=== PATIENT | female | born 1960 | race Caucasian/White ===

== ENCOUNTER 2016-04-30 08:00 | Outpatient (CLI) | payer OTHER, MEDICARE | END 2016-04-30 08:01 | disposition home or self-care (01) | DX: Z00.00 Encounter for general adult medical examination without abnormal findings (principal); E11.9 Type 2 diabetes mellitus without complications; G89.29 Other chronic pain; E55.9 Vitamin D deficiency, unspecified; Z79.899 Other long term (current) drug therapy ==

== ENCOUNTER 2016-09-03 09:43 | Outpatient (CLI) | payer OTHER, MEDICARE ==
[2016-09-03 13:54] LABS: HEMOGLOBIN A1C 0.77 g/dL
== END 2016-09-03 09:44 | disposition home or self-care (01) ==
LOC: LAB.N 09:43
PROVIDERS: ATTEND Physician Assistant Medical
DX: E11.9 Type 2 diabetes mellitus without complications (principal)
CPT/HCPCS: 36415; 82947; 83036

== ENCOUNTER 2018-06-30 12:01 | Inpatient (IN) | payer OTHER, MEDICARE ==
[2018-06-30] MEDS ORDERED: TETANUS/DIPHTHERIA/PERTUSSIS 0.5 ML SYRINGE IM ONE (12:53)
[2018-06-30 13:20] LABS: BASOPHILS # (AUTO) 0.1 10^3/uL (0.0-0.1); BASOPHILS % (AUTO) 0.4 %; EOSINOPHILS # (AUTO) 0.1 10^3/uL (0.0-0.7); EOSINOPHILS % (AUTO) 0.8 %; HGB - HEMOGLOBIN 13.1 g/dL (12.0-16.0); LYMPHOCYTES # (AUTO) 2.8 10^3/uL (1.5-3.5); LYMPHOCYTES % (AUTO) 23.4 %; MEAN CORPUSCULAR HEMOGLOBIN 28.1 pg (27.0-31.0); MEAN CORPUSCULAR HGB CONC 33.5 g/dL (32.0-36.0); MEAN CORPUSCULAR VOLUME 83.9 fL (81.0-99.0); MEAN PLATELET VOLUME 7.4 fL (7.9-10.8); MONOCYTES # (AUTO) 0.6 10^3/uL (0.0-1.0); MONOCYTES % (AUTO) 5.4 %; NEUTROPHILS # (AUTO) 8.4 10^3/uL (1.5-6.6); PLT - PLATELET COUNT 374 10^3/uL (130-450); RED BLOOD COUNT 4.67 10^6/uL (4.20-5.40); RED CELL DISTRIBUTION WIDTH 13.2 % (12.0-15.0)
[2018-06-30 13:32] LABS: ALBUMIN 4.1 g/dL (3.2-5.5); ALBUMIN/GLOBULIN RATIO 1.3 (1.0-2.2); BILIRUBIN,TOTAL 0.6 mg/dL (0.2-1.0); CALCIUM 9.6 mg/dL (8.5-10.3); CREATININE 0.6 mg/dL (0.4-1.0); TOTAL PROTEIN 7.2 g/dL (6.7-8.2)
[2018-06-30] MEDS ORDERED: SODIUM CHLORIDE 0.9% 1,000 ML IV ONE ×2 (13:37→14:15)
[2018-06-30] MEDS ORDERED: AMPICILLIN/SULBACTAM 3 GM in SODIUM CHLORIDE 0.9% MINIBAG 100 ML IV STA (13:41)
[2018-06-30] MEDS ORDERED: CLINDAMYCIN 600 MG/50 ML 50 ML IV ONE (13:42)
[2018-06-30] MEDS ORDERED: IOPAMIDOL-300 100 ML VIAL ONE (13:54)
--- NOTE | 2018-06-30 14:36 | CT Report ---
Reason: foot swelling, pain, blister, elevated Lactate Procedure Date: 06/30/2018 Accession Number: [id number] / [id number] Procedure: CT - LOWER EXTREMITY W - RT CPT Code: FULL RESULT: EXAM: RIGHT FOOT CT WITH CONTRAST EXAM DATE: 06/30/2018 02:21 PM. CLINICAL HISTORY: Foot swelling, pain, blister, elevated lactate. COMPARISON: None. TECHNIQUE: Thin-section axial images were acquired of the foot after administration of intravenous contrast. IV contrast: 100 mL Isovue-300. Post-processing: Coronal and sagittal reformats. Other: None. In accordance with CT protocol optimization, one or more of the following dose reduction techniques were utilized for this exam: automated exposure control, adjustment of mA and/or KV based on patient size, or use of iterative reconstructive technique. FINDINGS: Bones: A small plantar calcaneal spur is present. Joints: The joint spaces are preserved. No calcified loose bodies. No large effusion. No synovitis. Musculature: The patient has moderate fatty atrophy of the intrinsic musculature of the foot. Other: There is calcific enthesopathy at the Achilles insertion. Dorsal subcutaneous edema is in the midfoot. No rim-enhancing drainable fluid collections. No emphysema. IMPRESSION: Mild cellulitis without abscess. RADIA
[2018-06-30 14:38] LABS: VBG PCO2 39.5 mmHg (41-51); VBG PH 7.367 (7.31-7.41); VBG PO2 38.6 mmHg (25-47)
[2018-06-30 14:39] LABS: VBG BASE EXCESS -2.9 mmol/L (-2 - +2); VBG TOTAL CO2 23.4 mmol/L (24-29)
--- NOTE | 2018-06-30 14:48 | ED Physician Documentation ---
History of Present Illness - Stated complaint Stated Complaint: RIGHT FOOT TOES DRAINING PUSS - Chief complaint Chief Complaint: Ext Problem - Additonal information Additional information: 58-year-old female who presents the emergency department with redness to her right foot. The patient was outside walking in her socks. The patient noticed blisters on her feet which have subsequently drained and now the patient has swelling and redness to the foot. No reports of fevers. Increased foot pain. No relieving factors. No other associated symptoms Review of Systems Constitutional: reports: Chills, Fatigue. denies: Fever Eyes: denies: Discharge Ears: denies: Ear pain Nose: denies: Congestion Cardiac: denies: Chest pain / pressure Respiratory: denies: Cough GI: denies: Abdominal Pain : denies: Dysuria Skin: reports: Lesions Musculoskeletal: reports: Extremity pain Psychiatric: reports: Depressed PD PAST MEDICAL HISTORY - Past Medical History Past Medical History: Yes Cardiovascular: Hypertension, High cholesterol Respiratory: None Neuro: None Endocrine/Autoimmune: Type 2 diabetes GI: Hiatal hernia, Diverticulitis : None HEENT: Other Psych: Depression, Anxiety, Bipolar disorder Musculoskeletal: None Derm: None - Past Surgical History Past Surgical History: Yes General: Cholecystectomy, Appendectomy, Other HEENT: Rhinoplasty - Present Medications Home Medications: Ambulatory Orders Medication Instructions Recorded Confirmed Alprazolam [Xanax] 1 mg PO DAILY 02/16/13 02/16/13 Citalopram [CeleXA] 40 mg PO DAILY 02/16/13 02/16/13 Glyburide 0 mg PO DAILY 02/16/13 02/16/13 Hydrocodone/Acetaminophen [Vicodin 1 each PO PRN 02/16/13 02/16/13 5-300 mg Tablet] Losartan [Cozaar] 50 mg PO DAILY 02/16/13 02/16/13 metFORMIN [Glucophage] 1,000 mg PO BID 02/16/13 02/16/13 - Allergies Allergies/Adverse Reactions: Allergies Allergy/AdvReac Type Severity Reaction Status Date / Time No Known Drug Allergies Allergy Verified 06/30/18 12:15 - Social History Does the pt smoke?: Yes Smoking Status: Current every day smoker Does the pt drink ETOH?: No Does the pt have substance abuse?: No - Immunizations Immunizations are current?: Yes - POLST Patient has POLST: No PD ED PE NORMAL - General General: Alert and oriented X 3, No acute distress - HEENT HEENT: Atraumatic, PERRL, EOMI, Ears normal - Cardiac Cardiac: RRR, Strong equal pulses - Respiratory Respiratory: No respiratory distress - Abdomen Abdomen: Soft, Non tender - Derm Derm: Other (The patient has significant erythematous changes to the right distal foot, there appears to be sloughed skin form ruptured blisters and underlying erythematous changes with superimposed cellulitis. The patient has significant tenderness to palpation. The lesions are on the plantar and dorsal distal foot) - Extremities Extremities: Other (See skin description, normal range of motion, no joint tenderness, normal dorsalis pedis pulse and normal cap refill, No crepitus, No s ubcutaneous changes) - Neuro Neuro: Alert and oriented X 3, Normal speech Results - Vitals Vitals: Vital Signs - 24 hr 06/30/18 06/30/18 12:11 14:40 Temperature 36.4 C L 36.6 C Heart Rate 102 H 72 Respiratory 14 12 Rate Blood Pressure 144/89 H 133/74 H O2 Saturation 97 96 Oxygen O2 Source Room air - Labs Labs: Laboratory Tests 06/30/18 06/30/18 06/30/18 13:07 13:07 13:07 WBC 12.0 H RBC 4.67 Hgb 13.1 Hct 39.2 MCV 83.9 MCH 28.1 MCHC 33.5 RDW 13.2 Plt Count 374 MPV 7.4 L Neut # (Auto) 8.4 H Lymph # (Auto) 2.8 Forrest # (Auto) 0.6 Eos # (Auto) 0.1 Baso # (Auto) 0.1 Absolute Nucleated RBC 0.00 Nucleated RBC % 0.0 ESR VBG pH VBG pCO2 VBG pO2 VBG HCO3 VBG Total CO2 VBG O2 Saturation VBG Base Excess Sodium 135 Potassium 3.6 Chloride 99 L Carbon Dioxide 23 Anion Gap 13.0 BUN 19 Creatinine 0.6 Estimated GFR (MDRD) 103 Glucose 182 H Lactic Acid 4.0 H* Calcium 9.6 Total Bilirubin 0.6 AST 23 ALT 17 Alkaline Phosphatase 68 Total Creatine Kinase 40 Total Protein 7.2 Albumin 4.1 Globulin 3.1 Albumin/Globulin Ratio 1.3 Lipase 70 H 06/30/18 06/30/18 13:07 14:29 WBC RBC Hgb Hct MCV MCH MCHC RDW Plt Count MPV Neut # (Auto) Lymph # (Auto) Forrest # (Auto) Eos # (Auto) Baso # (Auto) Absolute Nucleated RBC Nucleated RBC % ESR 22 VBG pH 7.367 VBG pCO2 39.5 L VBG pO2 38.6 VBG HCO3 22.2 L VBG Total CO2 23.4 L VBG O2 Saturation 73.2 VBG Base Excess -2.9 L Sodium Potassium Chloride Carbon Dioxide Anion Gap BUN Creatinine Estimated GFR (MDRD) Glucose Lactic Acid Calcium Total Bilirubin AST ALT Alkaline Phosphatase Total Creatine Kinase Total Protein Albumin Globulin Albumin/Globulin Ratio Lipase - Rads (name of study) CT foot Radiology: Final report received, See rad report (IMPRESSION: Mild cellulitis without abscess. ) PD MEDICAL DECISION MAKING - ED course ED course: The patient has acute cellulitis of the right foot which is as a complication of her diabetes, the patient appears to have mild sepsis and will require admission to the hospital for IV antibiotics and wound care. The findings and plan were discussed with the patient who is agreeable to the plan. The case was discussed with the hospitalist Dr. Christian who accepts the patient onto her service Departure - Departure Disposition: 66 [facility] DC/Xfer Clinical Impression: Diabetic foot infection Sepsis Qualifiers: Sepsis type: sepsis due to unspecified organism Qualified Code(s): A41.9 - Sepsis, unspecified organism
[2018-06-30] MEDS ORDERED: IOPAMIDOL-300 100 ML VIAL IVP ONE (14:50)
[2018-06-30] MEDS ORDERED: SODIUM CHLORIDE 0.9% 500 ML IV ONE (14:55)
[2018-06-30] MEDS ORDERED: SODIUM CHLORIDE FLUSH 0.9% 10 ML SYRINGE IVP PRN (15:10)
[2018-06-30] MEDS ORDERED: VANCOMYCIN INJ 2 GM in SODIUM CHLORIDE 0.9% 500 ML IV SCH (16:00)
[2018-06-30] MEDS ORDERED: VANCOMYCIN PER PHARMACY 100 GM in SODIUM CHLORIDE 0.9% 250 ML IV STA (16:02)
[2018-06-30] MEDS: ACETAMINOPHEN 325 MG TABLET PO PRN (16:39)
[2018-06-30] MEDS: oxyCODONE 5 MG TABLET PO PRN (16:40)
[2018-06-30] MEDS: INSULIN ASPART 300 UNIT/3 ML PEN SUBQ SCH ×2 (16:53→21:09)
[2018-06-30] MEDS: SODIUM CHLORIDE FLUSH 0.9% 10 ML SYRINGE IVP SCH (17:53)
[2018-06-30] MEDS: SODIUM CHLORIDE 0.9% 1,000 ML IV SCH (18:08)
--- NOTE | 2018-06-30 18:41 | PROVIDER PROGRESS NOTE ---
Objective - Vital Signs/Intake & Output Vital Signs: Vital Signs x48h Temp Pulse Pulse Resp BP BP Pulse Ox 06/30/18 16:05 36.5 C 73 16 143/74 H 97 06/30/18 15:45 36.5 C 72 16 146/75 H 96 06/30/18 14:40 36.6 C 72 12 133/74 H 96 06/30/18 12:11 36.4 C L 102 H 14 144/89 H 97 Intake & Output: Intake & Output 06/27/18 06/28/18 06/29/18 06/30/18 23:59 23:59 23:59 23:59 Intake Total 2650 Balance 2650 - Lab Results Fish Bones: 06/30/18 13:07 06/30/18 13:07 Other Labs: Lab Results x24hrs 06/30/18 06/30/18 06/30/18 Range/Units 17:57 16:46 14:29 WBC (4.8-10.8) x10^3/uL RBC (4.20-5.40) 10^6/uL Hgb (12.0-16.0) g/dL Hct (37.0-47.0) % MCV (81.0-99.0) fL MCH (27.0-31.0) pg MCHC (32.0-36.0) g/dL RDW (12.0-15.0) % Plt Count (130-450) 10^3/uL MPV (7.9-10.8) fL Neut # (Auto) (1.5-6.6) 10^3/uL Lymph # (Auto) (1.5-3.5) 10^3/uL Miner # (Auto) (0.0-1.0) 10^3/uL Eos # (Auto) (0.0-0.7) 10^3/uL Baso # (Auto) (0.0-0.1) 10^3/uL Absolute Nucleated RBC x10^3/uL Nucleated RBC % /100WBC ESR (0-30) mm/Hr VBG pH 7.367 (7.31-7.41) VBG pCO2 39.5 L (41-51) mmHg VBG pO2 38.6 (25-47) mmHg VBG HCO3 22.2 L (23-28) mmol/L VBG Total CO2 23.4 L (24-29) mmol/L VBG O2 Saturation 73.2 (60-80) % VBG Base Excess -2.9 L (-2 - +2) mmol/L Sodium (135-145) mmol/L Potassium (3.5-5.0) mmol/L Chloride (101-111) mmol/L Carbon Dioxide (21-32) mmol/L Anion Gap (6-13) BUN (6-20) mg/dL Creatinine (0.4-1.0) mg/dL Estimated GFR (MDRD) (>89) Glucose (70-100) mg/dL POC Whole Bld Glucose 123 H (70 - 100) mg/dL Lactic Acid 3.6 H* (0.5-2.2) mmol/L Calcium (8.5-10.3) mg/dL Total Bilirubin (0.2-1.0) mg/dL AST (10-42) IU/L ALT (10-60) IU/L Alkaline Phosphatase (42-121) IU/L Total Creatine Kinase (22-269) IU/L C-Reactive Protein (0-1.0) mg/dL Total Protein (6.7-8.2) g/dL Albumin (3.2-5.5) g/dL Globulin (2.1-4.2) g/dL Albumin/Globulin Ratio (1.0-2.2) Lipase (22-51) U/L 06/30/18 06/30/18 06/30/18 Range/Units 13:07 13:07 13:07 WBC (4.8-10.8) x10^3/uL RBC (4.20-5.40) 10^6/uL Hgb (12.0-16.0) g/dL Hct (37.0-47.0) % MCV (81.0-99.0) fL MCH (27.0-31.0) pg MCHC (32.0-36.0) g/dL RDW (12.0-15.0) % Plt Count (130-450) 10^3/uL MPV (7.9-10.8) fL Neut # (Auto) (1.5-6.6) 10^3/uL Lymph # (Auto) (1.5-3.5) 10^3/uL Miner # (Auto) (0.0-1.0) 10^3/uL Eos # (Auto) (0.0-0.7) 10^3/uL Baso # (Auto) (0.0-0.1) 10^3/uL Absolute Nucleated RBC x10^3/uL Nucleated RBC % /100WBC ESR 22 (0-30) mm/Hr VBG pH (7.31-7.41) VBG pCO2 (41-51) mmHg VBG pO2 (25-47) mmHg VBG HCO3 (23-28) mmol/L VBG Total CO2 (24-29) mmol/L VBG O2 Saturation (60-80) % VBG Base Excess (-2 - +2) mmol/L Sodium (135-145) mmol/L Potassium (3.5-5.0) mmol/L Chloride (101-111) mmol/L Carbon Dioxide (21-32) mmol/L Anion Gap (6-13) BUN (6-20) mg/dL Creatinine (0.4-1.0) mg/dL Estimated GFR (MDRD) (>89) Glucose (70-100) mg/dL POC Whole Bld Glucose (70 - 100) mg/dL Lactic Acid 4.0 H* (0.5-2.2) mmol/L Calcium (8.5-10.3) mg/dL Total Bilirubin (0.2-1.0) mg/dL AST (10-42) IU/L ALT (10-60) IU/L Alkaline Phosphatase (42-121) IU/L Total Creatine Kinase (22-269) IU/L C-Reactive Protein 1.1 H (0-1.0) mg/dL Total Protein (6.7-8.2) g/dL Albumin (3.2-5.5) g/dL Globulin (2.1-4.2) g/dL Albumin/Globulin Ratio (1.0-2.2) Lipase (22-51) U/L 06/30/18 06/30/18 Range/Units 13:07 13:07 WBC 12.0 H (4.8-10.8) x10^3/uL RBC 4.67 (4.20-5.40) 10^6/uL Hgb 13.1 (12.0-16.0) g/dL Hct 39.2 (37.0-47.0) % MCV 83.9 (81.0-99.0) fL MCH 28.1 (27.0-31.0) pg MCHC 33.5 (32.0-36.0) g/dL RDW 13.2 (12.0-15.0) % Plt Count 374 (130-450) 10^3/uL MPV 7.4 L (7.9-10.8) fL Neut # (Auto) 8.4 H (1.5-6.6) 10^3/uL Lymph # (Auto) 2.8 (1.5-3.5) 10^3/uL Miner # (Auto) 0.6 (0.0-1.0) 10^3/uL Eos # (Auto) 0.1 (0.0-0.7) 10^3/uL Baso # (Auto) 0.1 (0.0-0.1) 10^3/uL Absolute Nucleated RBC 0.00 x10^3/uL Nucleated RBC % 0.0 /100WBC ESR (0-30) mm/Hr VBG pH (7.31-7.41) VBG pCO2 (41-51) mmHg VBG pO2 (25-47) mmHg VBG HCO3 (23-28) mmol/L VBG Total CO2 (24-29) mmol/L VBG O2 Saturation (60-80) % VBG Base Excess (-2 - +2) mmol/L Sodium 135 (135-145) mmol/L Potassium 3.6 (3.5-5.0) mmol/L Chloride 99 L (101-111) mmol/L Carbon Dioxide 23 (21-32) mmol/L Anion Gap 13.0 (6-13) BUN 19 (6-20) mg/dL Creatinine 0.6 (0.4-1.0) mg/dL Estimated GFR (MDRD) 103 (>89) Glucose 182 H (70-100) mg/dL POC Whole Bld Glucose (70 - 100) mg/dL Lactic Acid (0.5-2.2) mmol/L Calcium 9.6 (8.5-10.3) mg/dL Total Bilirubin 0.6 (0.2-1.0) mg/dL AST 23 (10-42) IU/L ALT 17 (10-60) IU/L Alkaline Phosphatase 68 (42-121) IU/L Total Creatine Kinase 40 (22-269) IU/L C-Reactive Protein (0-1.0) mg/dL Total Protein 7.2 (6.7-8.2) g/dL Albumin 4.1 (3.2-5.5) g/dL Globulin 3.1 (2.1-4.2) g/dL Albumin/Globulin Ratio 1.3 (1.0-2.2) Lipase 70 H (22-51) U/L
[2018-06-30 18:54] LABS: HB2 TOTAL 14.1 g/dL; HEMOGLOBIN A1C 0.79 g/dL; HEMOGLOBIN A1C % 7.3 % (4.6-6.2)
[2018-06-30] MEDS: ALPRAZolam 0.25 MG TABLET PO PRN (19:09)
[2018-06-30] MEDS: clonazePAM 0.5 MG TABLET PO PRN (19:09)
[2018-06-30] MEDS: AMPICILLIN/SULBACTAM 3 GM in SODIUM CHLORIDE 0.9% MINIBAG 100 ML IV SCH (19:20)
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
[2018-06-30] MEDS: NICOTINE 14 MG PATCH TOP SCH (21:08)
[2018-07-01] MEDS: oxyCODONE 5 MG TABLET PO PRN ×3 (00:08→15:39)
[2018-07-01] MEDS: AMPICILLIN/SULBACTAM 3 GM in SODIUM CHLORIDE 0.9% MINIBAG 100 ML IV SCH ×4 (00:11→19:51)
[2018-07-01] MEDS: CARISOPRODOL 350 MG PO PRN ×2 (00:58→06:54)
[2018-07-01] MEDS: VANCOMYCIN INJ 1.5 GM in SODIUM CHLORIDE 0.9% 500 ML IV SCH ×2 (04:12→17:38)
[2018-07-01] MEDS: SODIUM CHLORIDE FLUSH 0.9% 10 ML SYRINGE IVP SCH ×3 (04:12→17:30)
[2018-07-01] MEDS ORDERED: ONDANSETRON ODT 4 MG TABLET TL PRN (07:16)
[2018-07-01] MEDS: LOSARTAN 50 MG TABLET PO SCH (08:05)
[2018-07-01] MEDS: CITALOPRAM HYDROBROMIDE 20 MG TABLET PO SCH (08:08)
[2018-07-01] MEDS: NICOTINE 14 MG PATCH TOP SCH (08:09)
[2018-07-01] MEDS: POLYETHYLENE GLYCOL 3350 17 GM PACKET PO SCH (08:10)
[2018-07-01] MEDS: INSULIN ASPART 300 UNIT/3 ML PEN SUBQ SCH ×4 (08:11→20:48)
[2018-07-01 08:30] LABS: CALCIUM 8.1 mg/dL (8.5-10.3); CREATININE 0.7 mg/dL (0.4-1.0)
[2018-07-01 08:38] LABS: BASOPHILS % (AUTO) 0.3 %; EOSINOPHILS # (AUTO) 0.1 10^3/uL (0.0-0.7); EOSINOPHILS % (AUTO) 0.8 %; HGB - HEMOGLOBIN 10.8 g/dL (12.0-16.0); LYMPHOCYTES # (AUTO) 1.7 10^3/uL (1.5-3.5); LYMPHOCYTES % (AUTO) 18.1 %; MEAN CORPUSCULAR HEMOGLOBIN 29.2 pg (27.0-31.0); MEAN CORPUSCULAR HGB CONC 34.6 g/dL (32.0-36.0); MEAN CORPUSCULAR VOLUME 84.3 fL (81.0-99.0); MEAN PLATELET VOLUME 7.4 fL (7.9-10.8); MONOCYTES # (AUTO) 0.5 10^3/uL (0.0-1.0); MONOCYTES % (AUTO) 5.8 %; NEUTROPHILS # (AUTO) 6.8 10^3/uL (1.5-6.6); PLT - PLATELET COUNT 251 10^3/uL (130-450); RED CELL DISTRIBUTION WIDTH 13.3 % (12.0-15.0); WHITE BLOOD COUNT 9.1 x10^3/uL (4.8-10.8)
[2018-07-01] MEDS ORDERED: LOSARTAN 50 MG TABLET PO SCH (09:00)
[2018-07-01] MEDS ORDERED: CITALOPRAM 10 MG TABLET PO SCH (09:00)
--- NOTE | 2018-07-01 09:24 | PROVIDER PROGRESS NOTE ---
Subjective - Prog Note Date Prog Note Date: 07/01/18 Prog Note Time: 09:22 - Subjective Pt reports feeling: Improved Subjective: The redness and swelling of her right foot have improved. Almost all of that heat and edema have resolved with antibiotics and elevating her foot. However, she really has lost a significant amount of skin on the bottom of her foot in the plantar area below the third fourth and fifth toes. She leaks fluid no matter where she puts her foot. Quite painful for her. She wants to make sure she gets her medications today of citalopram, Klonopin, Xanax, Soma and her sugar is 270 something this morning and wants to make sure she gets her insulin coverage. She continues to have the same chronic abdominal pain she always does. She would prefer to be on 10 mg of oxycodone as opposed to 5 mg of oxycodone which is on her list. She says she usually takes 10 mg not 5 mg. Current Medications - Current Medications Current Medications: Active Medications Acetaminophen (Tylenol) 650 mg PO Q4HR PRN PRN Reason: Pain 1 to 4 Last Admin: 06/30/18 16:39 Dose: 650 mg Alprazolam (Xanax) 1 mg PO DAILY PRN PRN Reason: Anxiety Last Admin: 06/30/18 19:09 Dose: 1 mg Citalopram Hydrobromide (Celexa) 40 mg PO DAILY [facility] Last Admin: 07/01/18 08:08 Dose: 40 mg Clonazepam (Klonopin) 1 mg PO TID PRN PRN Reason: Anxiety Last Admin: 06/30/18 19:09 Dose: 1 mg Ampicillin Sodium/Sulbactam (Sodium 3 gm/ Sodium Chloride) 100 mls @ 200 mls/hr IV Q6HR [facility] Last Infusion: 07/01/18 07:20 Dose: Infused Sodium Chloride (Normal Saline 0.9%) 1,000 mls @ 100 mls/hr IV .Q10H [facility] Last Infusion: 07/01/18 07:20 Dose: 100 mls/hr Vancomycin HCl 1.5 gm/ Sodium (Chloride) 500 mls @ 250 mls/hr IV Q12H [facility] Last Infusion: 07/01/18 06:44 Dose: Infused Insulin Aspart (Novolog) 1 - 9 unit SUBQ 0800,1200,1700,2100 [facility]; Protocol Last Admin: 07/01/18 08:11 Dose: 3 unit Losartan Potassium (Cozaar) 50 mg PO DAILY [facility] Last Admin: 07/01/18 08:05 Dose: 50 mg Nicotine (Nicoderm) 1 patch TOP DAILY [facility] Last Admin: 07/01/18 08:09 Dose: 1 patch Ondansetron HCl (Zofran Odt) 4 mg TL Q4HR PRN PRN Reason: Nausea / Vomiting Last Admin: 07/01/18 08:05 Dose: 4 mg Oxycodone HCl (Roxicodone) 10 mg PO Q4HR PRN PRN Reason: Pain 5 to 7 Patient Own Medication ( Carisoprodol [Soma] 350 Mg) 1 each PO TID PRN PRN Reason: PAIN Last Admin: 07/01/18 06:54 Dose: 1 each Carisoprodol 1 each PO TID PRN PRN Reason: Stomach spasms Polyethylene Glycol (Miralax) 17 gm PO DAILY [facility] Last Admin: 07/01/18 08:10 Dose: Not Given Sodium Chloride (Normal Saline Flush 0.9%) 10 ml IVP PRN PRN PRN Reason: NEEDED PER PROVIDER ORDERS Sodium Chloride (Normal Saline Flush 0.9%) 10 ml IVP 0100,0900,1700 [facility] Last Admin: 07/01/18 08:10 Dose: 10 ml Alprazolam [Xanax] 1 mg PO DAILY PRN 02/16/13 Citalopram [CeleXA] 40 mg PO DAILY 02/16/13 Losartan [Cozaar] 50 mg PO DAILY 02/16/13 metFORMIN [Glucophage] 1,000 mg PO BID 02/16/13 Carisoprodol [Soma] 350 mg PO TID PRN 06/30/18 Glimepiride 1 - 2 mg PO BID 06/30/18 Hydrocodone/Acetaminophen [Hydrocodon-Acetaminophn 10-325] 1 each PO DAILY 06/30/18 Oxycodone HCl 10 mg PO .Q6-8H PRN 06/30/18 clonazePAM [Clonazepam] 0.5 - 1 mg PO TID PRN 06/30/18 Objective - Vital Signs/Intake & Output Reviewed Vital Signs: Yes Vital Signs: Vital Signs x48h Temp Pulse Resp BP Pulse Ox 07/01/18 07:38 36.9 C 66 15 128/65 99 Intake & Output: Intake & Output 06/28/18 06/29/18 06/30/18 07/01/18 23:59 23:59 23:59 23:59 Intake Total 3450 1965.7 Balance 3450 1965.7 - Objective General Appearance: positive: No acute distress, Alert Eyes Bilateral: positive: PERRL, EOMI ENT: positive: Pharynx nml Neck: positive: No JVD. negative: Stiff neck, Carotid bruit Respiratory: positive: Chest non-tender. negative: Wheezes, Rales, Rhonchi Cardiovascular: positive: Regular rate & rhythm. negative: Gallop/S4, Friction rub Abdomen: positive: No organomegaly, Nml bowel sounds, Tenderness (diffuse at 4/10). negative: Guarding, Rebound Skin: positive: Warm, Dry. negative: Diaphoresis, Pallor Extremities: positive: Other (The cellulitis changes of redness, heat, and edema of soft tissue swelling is gone from the right foot almost 100%. Very residual edema left. The redness and heat are definitely gone and you can see where the ink sign was that delineated the edges of her redness and heat. Skin is now normal within the ink margin. The foot is now dryer and it is not oozing nearly as much serous drainage as it was yesterday but it is still oozing. She still has a tremendous large loss of skin on the plantar surface of her right foot below fifth, fourth, and third toes. In the webspace between the fourth and fifth toe the skin loss extends to the top of the toes and she has loss of skin but continued blistering on top of the fifth fourth and third toes. Onychomycosis of some of the toenails on the right and left. Left foot is normal.) Neurologic/Psychiatric: positive: Oriented x3, CN's nml (2-12), Motor nml - Lab Results Fish Bones: 07/01/18 08:07 07/01/18 08:07 Other Labs: Lab Results x24hrs 07/01/18 07/01/18 07/01/18 Range/Units 08:07 08:07 08:07 WBC 9.1 (4.8-10.8) x10^3/uL RBC 3.70 L (4.20-5.40) 10^6/uL Hgb 10.8 L (12.0-16.0) g/dL Hct 31.2 L (37.0-47.0) % MCV 84.3 (81.0-99.0) fL MCH 29.2 (27.0-31.0) pg MCHC 34.6 (32.0-36.0) g/dL RDW 13.3 (12.0-15.0) % Plt Count 251 (130-450) 10^3/uL MPV 7.4 L (7.9-10.8) fL Neut # (Auto) 6.8 H (1.5-6.6) 10^3/uL Lymph # (Auto) 1.7 (1.5-3.5) 10^3/uL Cuming # (Auto) 0.5 (0.0-1.0) 10^3/uL Eos # (Auto) 0.1 (0.0-0.7) 10^3/uL Baso # (Auto) 0.0 (0.0-0.1) 10^3/uL Absolute Nucleated RBC 0.00 x10^3/uL Nucleated RBC % 0.0 /100WBC ESR (0-30) mm/Hr VBG pH (7.31-7.41) VBG pCO2 (41-51) mmHg VBG pO2 (25-47) mmHg VBG HCO3 (23-28) mmol/L VBG Total CO2 (24-29) mmol/L VBG O2 Saturation (60-80) % VBG Base Excess (-2 - +2) mmol/L Sodium 139 (135-145) mmol/L Potassium 3.6 (3.5-5.0) mmol/L Chloride 107 (101-111) mmol/L Carbon Dioxide 22 (21-32) mmol/L Anion Gap 10.0 (6-13) BUN 11 (6-20) mg/dL Creatinine 0.7 (0.4-1.0) mg/dL Estimated GFR (MDRD) 86 L (>89) Glucose 210 H (70-100) mg/dL POC Whole Bld Glucose (70 - 100) mg/dL Glycated Hemoglobin (4.6-6.2) % Estim Average Glucose (70-100) Lactic Acid 3.8 H* (0.5-2.2) mmol/L Calcium 8.1 L (8.5-10.3) mg/dL Total Bilirubin (0.2-1.0) mg/dL AST (10-42) IU/L ALT (10-60) IU/L Alkaline Phosphatase (42-121) IU/L Total Creatine Kinase (22-269) IU/L C-Reactive Protein (0-1.0) mg/dL Total Protein (6.7-8.2) g/dL Albumin (3.2-5.5) g/dL Globulin (2.1-4.2) g/dL Albumin/Globulin Ratio (1.0-2.2) Lipase (22-51) U/L 07/01/18 06/30/18 06/30/18 Range/Units 07:28 20:41 17:57 WBC (4.8-10.8) x10^3/uL RBC (4.20-5.40) 10^6/uL Hgb (12.0-16.0) g/dL Hct (37.0-47.0) % MCV (81.0-99.0) fL MCH (27.0-31.0) pg MCHC (32.0-36.0) g/dL RDW (12.0-15.0) % Plt Count (130-450) 10^3/uL MPV (7.9-10.8) fL Neut # (Auto) (1.5-6.6) 10^3/uL Lymph # (Auto) (1.5-3.5) 10^3/uL Cuming # (Auto) (0.0-1.0) 10^3/uL Eos # (Auto) (0.0-0.7) 10^3/uL Baso # (Auto) (0.0-0.1) 10^3/uL Absolute Nucleated RBC x10^3/uL Nucleated RBC % /100WBC ESR (0-30) mm/Hr VBG pH (7.31-7.41) VBG pCO2 (41-51) mmHg VBG pO2 (25-47) mmHg VBG HCO3 (23-28) mmol/L VBG Total CO2 (24-29) mmol/L VBG O2 Saturation (60-80) % VBG Base Excess (-2 - +2) mmol/L Sodium (135-145) mmol/L Potassium (3.5-5.0) mmol/L Chloride (101-111) mmol/L Carbon Dioxide (21-32) mmol/L Anion Gap (6-13) BUN (6-20) mg/dL Creatinine (0.4-1.0) mg/dL Estimated GFR (MDRD) (>89) Glucose (70-100) mg/dL POC Whole Bld Glucose 206 H 220 H (70 - 100) mg/dL Glycated Hemoglobin (4.6-6.2) % Estim Average Glucose (70-100) Lactic Acid 3.6 H* (0.5-2.2) mmol/L Calcium (8.5-10.3) mg/dL Total Bilirubin (0.2-1.0) mg/dL AST (10-42) IU/L ALT (10-60) IU/L Alkaline Phosphatase (42-121) IU/L Total Creatine Kinase (22-269) IU/L C-Reactive Protein (0-1.0) mg/dL Total Protein (6.7-8.2) g/dL Albumin (3.2-5.5) g/dL Globulin (2.1-4.2) g/dL Albumin/Globulin Ratio (1.0-2.2) Lipase (22-51) U/L 06/30/18 06/30/18 06/30/18 Range/Units 16:46 14:29 13:07 WBC (4.8-10.8) x10^3/uL RBC (4.20-5.40) 10^6/uL Hgb (12.0-16.0) g/dL Hct (37.0-47.0) % MCV (81.0-99.0) fL MCH (27.0-31.0) pg MCHC (32.0-36.0) g/dL RDW (12.0-15.0) % Plt Count (130-450) 10^3/uL MPV (7.9-10.8) fL Neut # (Auto) (1.5-6.6) 10^3/uL Lymph # (Auto) (1.5-3.5) 10^3/uL Cuming # (Auto) (0.0-1.0) 10^3/uL Eos # (Auto) (0.0-0.7) 10^3/uL Baso # (Auto) (0.0-0.1) 10^3/uL Absolute Nucleated RBC x10^3/uL Nucleated RBC % /100WBC ESR (0-30) mm/Hr VBG pH 7.367 (7.31-7.41) VBG pCO2 39.5 L (41-51) mmHg VBG pO2 38.6 (25-47) mmHg VBG HCO3 22.2 L (23-28) mmol/L VBG Total CO2 23.4 L (24-29) mmol/L VBG O2 Saturation 73.2 (60-80) % VBG Base Excess -2.9 L (-2 - +2) mmol/L Sodium (135-145) mmol/L Potassium (3.5-5.0) mmol/L Chloride (101-111) mmol/L Carbon Dioxide (21-32) mmol/L Anion Gap (6-13) BUN (6-20) mg/dL Creatinine (0.4-1.0) mg/dL Estimated GFR (MDRD) (>89) Glucose (70-100) mg/dL POC Whole Bld Glucose 123 H (70 - 100) mg/dL Glycated Hemoglobin 7.3 H (4.6-6.2) % Estim Average Glucose 163 H (70-100) Lactic Acid (0.5-2.2) mmol/L Calcium (8.5-10.3) mg/dL Total Bilirubin (0.2-1.0) mg/dL AST (10-42) IU/L ALT (10-60) IU/L Alkaline Phosphatase (42-121) IU/L Total Creatine Kinase (22-269) IU/L C-Reactive Protein (0-1.0) mg/dL Total Protein (6.7-8.2) g/dL Albumin (3.2-5.5) g/dL Globulin (2.1-4.2) g/dL Albumin/Globulin Ratio (1.0-2.2) Lipase (22-51) U/L 06/30/18 06/30/18 06/30/18 Range/Units 13:07 13:07 13:07 WBC (4.8-10.8) x10^3/uL RBC (4.20-5.40) 10^6/uL Hgb (12.0-16.0) g/dL Hct (37.0-47.0) % MCV (81.0-99.0) fL MCH (27.0-31.0) pg MCHC (32.0-36.0) g/dL RDW (12.0-15.0) % Plt Count (130-450) 10^3/uL MPV (7.9-10.8) fL Neut # (Auto) (1.5-6.6) 10^3/uL Lymph # (Auto) (1.5-3.5) 10^3/uL Cuming # (Auto) (0.0-1.0) 10^3/uL Eos # (Auto) (0.0-0.7) 10^3/uL Baso # (Auto) (0.0-0.1) 10^3/uL Absolute Nucleated RBC x10^3/uL Nucleated RBC % /100WBC ESR 22 (0-30) mm/Hr VBG pH (7.31-7.41) VBG pCO2 (41-51) mmHg VBG pO2 (25-47) mmHg VBG HCO3 (23-28) mmol/L VBG Total CO2 (24-29) mmol/L VBG O2 Saturation (60-80) % VBG Base Excess (-2 - +2) mmol/L Sodium (135-145) mmol/L Potassium (3.5-5.0) mmol/L Chloride (101-111) mmol/L Carbon Dioxide (21-32) mmol/L Anion Gap (6-13) BUN (6-20) mg/dL Creatinine (0.4-1.0) mg/dL Estimated GFR (MDRD) (>89) Glucose (70-100) mg/dL POC Whole Bld Glucose (70 - 100) mg/dL Glycated Hemoglobin (4.6-6.2) % Estim Average Glucose (70-100) Lactic Acid 4.0 H* (0.5-2.2) mmol/L Calcium (8.5-10.3) mg/dL Total Bilirubin (0.2-1.0) mg/dL AST (10-42) IU/L ALT (10-60) IU/L Alkaline Phosphatase (42-121) IU/L Total Creatine Kinase (22-269) IU/L C-Reactive Protein 1.1 H (0-1.0) mg/dL Total Protein (6.7-8.2) g/dL Albumin (3.2-5.5) g/dL Globulin (2.1-4.2) g/dL Albumin/Globulin Ratio (1.0-2.2) Lipase (22-51) U/L 06/30/18 06/30/18 Range/Units 13:07 13:07 WBC 12.0 H (4.8-10.8) x10^3/uL RBC 4.67 (4.20-5.40) 10^6/uL Hgb 13.1 (12.0-16.0) g/dL Hct 39.2 (37.0-47.0) % MCV 83.9 (81.0-99.0) fL MCH 28.1 (27.0-31.0) pg MCHC 33.5 (32.0-36.0) g/dL RDW 13.2 (12.0-15.0) % Plt Count 374 (130-450) 10^3/uL MPV 7.4 L (7.9-10.8) fL Neut # (Auto) 8.4 H (1.5-6.6) 10^3/uL Lymph # (Auto) 2.8 (1.5-3.5) 10^3/uL Cuming # (Auto) 0.6 (0.0-1.0) 10^3/uL Eos # (Auto) 0.1 (0.0-0.7) 10^3/uL Baso # (Auto) 0.1 (0.0-0.1) 10^3/uL Absolute Nucleated RBC 0.00 x10^3/uL Nucleated RBC % 0.0 /100WBC ESR (0-30) mm/Hr VBG pH (7.31-7.41) VBG pCO2 (41-51) mmHg VBG pO2 (25-47) mmHg VBG HCO3 (23-28) mmol/L VBG Total CO2 (24-29) mmol/L VBG O2 Saturation (60-80) % VBG Base Excess (-2 - +2) mmol/L Sodium 135 (135-145) mmol/L Potassium 3.6 (3.5-5.0) mmol/L Chloride 99 L (101-111) mmol/L Carbon Dioxide 23 (21-32) mmol/L Anion Gap 13.0 (6-13) BUN 19 (6-20) mg/dL Creatinine 0.6 (0.4-1.0) mg/dL Estimated GFR (MDRD) 103 (>89) Glucose 182 H (70-100) mg/dL POC Whole Bld Glucose (70 - 100) mg/dL Glycated Hemoglobin (4.6-6.2) % Estim Average Glucose (70-100) Lactic Acid (0.5-2.2) mmol/L Calcium 9.6 (8.5-10.3) mg/dL Total Bilirubin 0.6 (0.2-1.0) mg/dL AST 23 (10-42) IU/L ALT 17 (10-60) IU/L Alkaline Phosphatase 68 (42-121) IU/L Total Creatine Kinase 40 (22-269) IU/L C-Reactive Protein (0-1.0) mg/dL Total Protein 7.2 (6.7-8.2) g/dL Albumin 4.1 (3.2-5.5) g/dL Globulin 3.1 (2.1-4.2) g/dL Albumin/Globulin Ratio 1.3 (1.0-2.2) Lipase 70 H (22-51) U/L ABX Reporting Has patient been on IV antibiotics over the past 48 hours?: Yes Assessment/Plan - Problem List (1) Diabetic foot infection Impression: The infection is much improved. What is concerning to me is the loss of skin. This is a full-thickness loss of skin down to fascia that is clearly visible. Plan: Continue antibiotics this morning and IV form. Transition to oral tonight. Wound consult ordered and discussed with wound care nurse Will call dermatology She may need plastic surgery evaluation for grafting, I am not sure (2) Type 2 diabetes mellitus without complication, without long-term current use of insulin Impression: Yesterday glucose was 205, 123, 220. This morning she is 206. Continue sliding scale insulin. Will bump up to next level to bring glucose to the 120s 130s. (3) Generalized anxiety disorder Impression: Medication reconciliation done. Klonopin is 0.5 3 times daily as needed, Xanax is 1 mg daily as needed, and her citalopram is 40 mg a day. All those medications will be given to her this morning. (4) HTN (hypertension) Impression: This morning she is controlled with blood pressure 128/65. Yesterday her highest was 146/75. Continue Cozaar, no changes in medication. Qualifiers: Hypertension type: essential hypertension Qualified Code(s): I10 - Essential (primary) hypertension (5) Lactic acidosis Impression: Still present. I still believe it is from metformin. White cell count is no rmal, no fever, electrolytes normal, vital signs normal. Lactic acidosis is not from sepsis. (6) Chronic pain syndrome Impression: Soma 350 mg p.o. 3 times daily as needed prescribed, and oxycodone was changed from 5 mg every 6 hours to 10 mg every 6 hours per her statement of what she takes at home
[2018-07-01] MEDS: SODIUM CHLORIDE 0.9% 1,000 ML IV SCH ×2 (09:46→19:40)
[2018-07-01] MEDS: ACETAMINOPHEN 325 MG TABLET PO PRN ×2 (12:13→20:47)
[2018-07-01] MEDS: CARISOPRODOL PO PRN ×2 (12:13→19:15)
[2018-07-01] MEDS: clonazePAM 0.5 MG TABLET PO PRN (12:33)
[2018-07-01] MEDS: ALPRAZolam 0.25 MG TABLET PO PRN (15:38)
[2018-07-01] MEDS ORDERED: MORPHINE 2 MG/ML SYRINGE IVP PRN (16:49)
[2018-07-02] MEDS: AMPICILLIN/SULBACTAM 3 GM in SODIUM CHLORIDE 0.9% MINIBAG 100 ML IV SCH ×3 (00:31→11:41)
[2018-07-02] MEDS: clonazePAM 0.5 MG TABLET PO PRN ×2 (00:32→08:30)
[2018-07-02] MEDS: oxyCODONE 5 MG TABLET PO PRN ×3 (00:33→09:19)
[2018-07-02] MEDS: SODIUM CHLORIDE 0.9% 1,000 ML IV SCH ×2 (00:37→09:19)
[2018-07-02] MEDS: VANCOMYCIN INJ 1.5 GM in SODIUM CHLORIDE 0.9% 500 ML IV SCH (04:08)
[2018-07-02] MEDS: SODIUM CHLORIDE FLUSH 0.9% 10 ML SYRINGE IVP SCH ×2 (04:09→08:27)
[2018-07-02 05:03] LABS: CREATININE 0.6 mg/dL (0.4-1.0)
[2018-07-02] MEDS: ACETAMINOPHEN 325 MG TABLET PO PRN ×2 (05:03→11:48)
[2018-07-02] MEDS: ALPRAZolam 0.25 MG TABLET PO PRN (05:13)
[2018-07-02 05:20] LABS: BASOPHILS % (AUTO) 0.7 %; EOSINOPHILS # (AUTO) 0.1 10^3/uL (0.0-0.7); EOSINOPHILS % (AUTO) 1.5 %; HGB - HEMOGLOBIN 9.9 g/dL (12.0-16.0); LYMPHOCYTES % (AUTO) 28.1 %; MEAN CORPUSCULAR HEMOGLOBIN 28.8 pg (27.0-31.0); MEAN CORPUSCULAR HGB CONC 33.7 g/dL (32.0-36.0); MEAN CORPUSCULAR VOLUME 85.6 fL (81.0-99.0); MEAN PLATELET VOLUME 7.5 fL (7.9-10.8); MONOCYTES # (AUTO) 0.5 10^3/uL (0.0-1.0); MONOCYTES % (AUTO) 6.9 %; NEUTROPHILS # (AUTO) 4.4 10^3/uL (1.5-6.6); NEUTROPHILS % (AUTO) 62.8 %; PLT - PLATELET COUNT 218 10^3/uL (130-450); RED BLOOD COUNT 3.45 10^6/uL (4.20-5.40); RED CELL DISTRIBUTION WIDTH 13.3 % (12.0-15.0); WHITE BLOOD COUNT 7.1 x10^3/uL (4.8-10.8)
[2018-07-02 07:38] VITALS: BP 136/71
[2018-07-02] MEDS: LOSARTAN 50 MG TABLET PO SCH (08:23)
[2018-07-02] MEDS: CITALOPRAM HYDROBROMIDE 20 MG TABLET PO SCH (08:23)
[2018-07-02] MEDS: INSULIN ASPART 300 UNIT/3 ML PEN SUBQ SCH ×2 (08:25→11:42)
[2018-07-02] MEDS: NICOTINE 14 MG PATCH TOP SCH (08:26)
[2018-07-02] MEDS: POLYETHYLENE GLYCOL 3350 17 GM PACKET PO SCH (08:27)
[2018-07-02] MEDS: CARISOPRODOL PO PRN (08:30)
--- NOTE | 2018-07-02 12:57 | Discharge Plan ---
Discharge Plan Disposition: Home Health Service Prescriptions: oxyCODONE [Roxicodone] 10 mg PO Q4HR PRN #42 tablet PRN Reason: Pain 5 to 7 Amox/Clav 500/125 [Augmentin] 1 each PO Q12H #12 tablet Amoxicillin 1,500 mg PO BID #36 capsule Hydrocodone/Acetaminophen [Hydrocodone-Acetamin 10-325 mg] 1 each PO DAILY #21 tablet Levofloxacin [Levaquin] 750 mg PO DAILY #6 tablet Diet: Diabetic Activity Restrictions: Activity as Tolerated Additional Instructions or Follow Up instructions: You presented to the emergency room with a foot infection because of blistering of the bottom of your right foot. It also had blistering on the third, fourth, and fifth toes. You are also a diabetic. Your exam was very interesting in that the emergency room nurses could actually see the blisters forming on your foot as they watched your skin. 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 You developed large enough blisters that you have lost about 3 x 4 cm of skin on the bottom of your right foot underneath your toes. And the tops of your third, fourth, and fifth toes are also involved. You responded very well to the antibiotics that are broad-spectrum for all the different bacteria that cause a diabetic foot infection. We have changed you over to pill form of this medicine. You will need to take these antibiotics for 6 more days. You were also seen by the wound care nurse, and will need to have continued wound care for the next several days. I have called plastic surgery at [facility] at [facility] to see if you would need a plastic surgery consult since you have lost so much skin. Dr. Griffin Ervin will be calling me back and I will call you after he calls me. You also had requested that I write for more of your usual pain pills. You are in between providers. You are leaving Dr. Mcgill's office and transitioning to GREGORY Mac's office. So you are in limbo in a running out of medicine. I have given you a little bit more of oxycodone and Vicodin. 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 I am requesting a home health wound evaluation. You also need to keep your foot covered and dry when you go into the shower or bathtub. We have given you a plastic covering for your foot called césar waldrop. [facility] does not have these. Your will have to go to [facility] to be able to get plastic boot/leg/foot covers at [facility]. They will go up to your knee and no higher. If you develop further blisters, fevers, a return of the redness and swelling of your foot, please come back to the emergency room. No Smoking: If you smoke, Please STOP! Call for help.
--- NOTE | 2018-07-03 19:47 | DISCHARGE SUMMARY ---
Physician: Maureen Mena MD DATE OF ADMISSION: 06/30/2018 DATE OF DISCHARGE: 07/02/2018 DISCHARGE DIAGNOSES: 1. Bullosis Diabeticorum. 2. Diabetic foot infection. 3. Type 2 diabetes mellitus, without complications, without long-term use of insulin with hyperglyce jesus alberto. 4. Agoraphobia. 5. Anxiety. 6. Chronic pain syndrome. 7. Hypertension. 8. Lactic acidosis. DISCHARGE MEDICATIONS: 1. Levaquin 750 mg p.o. daily, #6. 2. Xanax 1 mg tablet daily. 3. Soma 350 mg p.o. t.i.d. 4. Celexa 40 mg daily. 5. Clonazepam 0.1 mg or 1 mg tablet three times a day as needed. 6. Glimepiride 2 mg in the morning, and 1 mg in the evening. 7. Metformin 1000 mg p.o. b.i.d. 8. Cozaar 50 mg p.o. daily. 9. Oxycodone 10 mg p.o. every 8 hours p.r.n. 10. Augmentin 500/125 mg p.o. b.i.d. with amoxicillin 500 mg tablets, three tablets p.o. b.i.d. 11. Vicodin 5/325 mg one p.o. daily. PRINCIPAL PROCEDURES: 1. Blood cultures negative after two days. 2. Aerobic foot culture growing dense Staphylococcus aureus that is sensitive, and anaerobic culture that was negative at discharge. 3. Lower extremity CT with mild cellulitis, soft tissue swelling and no abscess or gas in soft tissu es. HOSPITAL COURSE: The patient is a mildly overweight 58-year-old female who has diabetes mellitus, bu t regards herself in control when she says she has an A1c of 6.1%. She has a severe anxiety disorder that leads to agoraphobia and claims that she has not left her house in eight years. She only leave s to go to the doctor's office, or in emergencies, such as coming here. 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 She had subsequen t sepsis dehiscence and multiple abdominal surgeries with two ventral hernia repairs with mesh and gr ommets. She feels that with the agoraphobia, she needs to take Xanax and Klonopin. For chronic pain syndrome in her abdomen for which she is on disability, she takes Vicodin every day for diarrhea, an d then takes oxycodone p.r.n. for pain. She also takes Soma. Unfortunately, she is in the midst of changing practices. Dr. Mcgill has retired. She was seeking to join [facility]'s practice. She is havi ng difficulty getting her medications refilled because they are controlled substances. She is sissy g her appointment with GREG[facility] Mac because she is now in the hospital. She presents with a sudden blistering that is spontaneous and not associated with trauma starting two days before admission. She walked in socks across the street to a neighbor's house to give her cook ies. She came back to the house, that night took off her socks, always looks at her feet every day, and there was no noted changes in her feet at all. She woke up the next day with water on her feet a s she was walking on her bedroom floor and realized that the bottom of her foot was wet and when look ing at it, had blisters. They had already started popping. She was oozing quite a bit of clear sero us fluid and occasionally blood. She cleaned them, used Neosporin, and then wrapped them. This morn ing, when she woke upon admission, her foot was starting to be quite painful. The foot was red, hot, swollen, and she had further blistering of the bottom of her foot and her third, fourth, and fifth t oes. In the Emergency Room she was afebrile, normotensive, not tachycardic, and saturating well on room ai r. Pertinent positive was the blistering right foot. Nursing staff in ER reported that as they watc hed the foot, they could see spontaneous blistering form in front of their eyes. The foot itself was now with redness, heat, and felt to be cellulitis. ER physician obtained a CT to make sure there wa s no necrotizing fasciitis or gas gangrene in the foot. The wound was cultured and the patient was started on empiric antibiotics with Unasyn and vancomycin. Within 12-18 hours, the foot was almost back to normal size, and where the ink was drawn for the sp reading cellulitis, the redness and heat had receded tremendously. By the second day of stay, the fo ot was now down to almost normal size. What was not normal was the blistering. She has almost a 4 x 3 cm full-thickness skin loss on the plantar surface of her foot underneath the third, fourth, and f ifth toes. The skin loss extended into the webspace of these toes and went to the top of these toes where she has lost all skin. There is clear visualization of tendons and ligaments and fascia. She is felt to have Bullosis Diabeticorum. She is not felt to have necrotizing fasciitis. There is abrupt cessation of the blistering and infection with use of antibiotics. Wound care nurse was seen. Some debridement was done. The patient was felt stable for discharge. However, I reached out to Dr. Griffin Ervin, Plastic and Reconstructive Surgery at [facility]. I described the case to him over the phone. This exceedingly gracious surgeon did not see the patient, but was willing to offer me some g eneral advice in the management of these type of wounds. These are difficult wounds to cover with sk in grafts. As such, it is probably not worth Plastica seeing her at this time. However, if she cont inues to have problems and our wound care clinic was not able to reach success treating this wound, h e would recommend the patient be seen by Nasir Isaacs, Podiatry. He did not recommend us doi ng anything different than we already were; treat it as a burn. During her stay, she did have lactic acidosis. I do not think this patient was septic, but having la ctic acidosis from Glucophage. The patient was very concerned about her pain management. She is in between primary care providers a nd was going to be running out of her medications by the time she saw GREGORY Mac on 08/04/2018. She wa s requesting that I give her 30-day supply, if not more. I carefully explained to her new legislatio n regarding limited use of opiates by Hospitalists by the [facility], and referenced the mem o and the new legislation from January 2018. What I was going to be able to give her, a little a wee k's worth, I was not going to be able to give her 30 days' worth. She also requested that she have w ound care with home health, because of her agoraphobia. She seriously doubted she would be able to g et herself in a car, much less use that right foot, then come to the medical ambulatory clinic, not o nly because of foot pain, but also because of the agoraphobia. As such, I have requested home health with wound care. I have also recommended that she keep her foot covered when taking a shower or bat h. I called her pharmacy, which is [facility] to ask if they had Aquaguard boot covers, and they said mirella pierce did not have anything like that. I called [facility], and [facility] has at least knee high foot cove rs that the patient can use and directed her in that area. I have asked her to please take Augmentin and Levaquin as recommended by [place] [facility] in a complicated diabetic foot infection. I explained that she has lactic acidosis from metformin, and she may want to consider a different form of medication if she gets lactic acidosis, again. PHYSICAL EXAMINATION: VITAL SIGNS: At discharge, temperature was 36.6, pulse 66, blood pressure 136/71, respirations 20, a nd she is 95% on room air. GENERAL: She is a pleasant, moderately overweight, round-faced, middle-aged female who looks her sta servando age. NECK: Supple. No goiter or bruits. CHEST: She breathes with unlabored respiration. Lungs are clear to auscultation and percussion. PM I is normally placed and she has a regular rate and rhythm. ABDOMEN: Soft, doughy abdominal pannus, nontender. Normal bowel sounds. No masses palpable. EXTREMITIES: The left leg is completely normal, as is the left foot. The right foot is not covered in a bandage. Pictures are available in the EMR. Dr. Griffin Ervin warms at this type of wound will take months to heal. ASSESSMENT AND PLAN: The patient is instructed with wound care instructions by Alesia Baker. The derick ent is instructed to follow the Ms. Baker's instructions. She should be seen by her PCP as soon as po ssible, but again, she feels that with the agoraphobia that may not happen. I strongly encouraged he r to still keep an appointment with either Dr. Null or [facility] Mac to make sure her wounds stay clean , and uninfected. I have also ordered home health wound care management. With her agoraphobia, this woman will not be able to leave her home, and she is at home alone by herself all day long while her works. Greater than 30 minutes was spent in coordinating discharge. TD: 07/03/2018 16:51
== END 2018-07-02 15:30 | disposition home health service (06) | DRG 638 ==
LOC: ED 12:01 → MS2 15:10
PROVIDERS: ADMIT Specialist; ATTEND Specialist
DX: E11.69 Type 2 diabetes mellitus with other specified complication (principal); E87.2 Acidosis; S90.822A Blister (nonthermal), left foot, initial encounter; S90.821A Blister (nonthermal), right foot, initial encounter; I10 Essential (primary) hypertension; E78.00 Pure hypercholesterolemia, unspecified; E11.65 Type 2 diabetes mellitus with hyperglycemia; K44.9 Diaphragmatic hernia without obstruction or gangrene; K57.90 Diverticulosis of intestine, part unspecified, without perforation or abscess without bleeding; F41.1 Generalized anxiety disorder; F31.9 Bipolar disorder, unspecified; Z90.49 Acquired absence of other specified parts of digestive tract; Z87.891 Personal history of nicotine dependence; F40.00 Agoraphobia, unspecified; G89.4 Chronic pain syndrome; Z90.721 Acquired absence of ovaries, unilateral; K52.9 Noninfective gastroenteritis and colitis, unspecified
CPT/HCPCS: 36415; 73701; 80048; 80053; 82550; 82803; 83036; 83605; 83690; 85025; 85651; 86140; 87040; 90471; 90715; 96365; 96368; 99284; A9270; J2270; J3370; J8499; Q0162; Q9967

== ENCOUNTER 2018-07-15 14:34 | Inpatient (IN) | payer OTHER, MEDICARE ==
[2018-07-15] MEDS ORDERED: PIPERACILLIN/TAZOBACTAM 3.375 GM in SODIUM CHLORIDE 0.9% MINIBAG 100 ML IV STA (15:30)
[2018-07-15] MEDS ORDERED: VANCOMYCIN INJ 1 GM in SODIUM CHLORIDE 0.9% 500 ML IV STA (15:30)
[2018-07-15 15:32] LABS: BASOPHILS # (AUTO) 0.1 10^3/uL (0.0-0.1); BASOPHILS % (AUTO) 0.6 %; EOSINOPHILS % (AUTO) 0.2 %; HGB - HEMOGLOBIN 12.7 g/dL (12.0-16.0); LYMPHOCYTES # (AUTO) 2.9 10^3/uL (1.5-3.5); LYMPHOCYTES % (AUTO) 21.9 %; MEAN CORPUSCULAR HEMOGLOBIN 27.9 pg (27.0-31.0); MEAN CORPUSCULAR VOLUME 82.1 fL (81.0-99.0); MEAN PLATELET VOLUME 7.6 fL (7.9-10.8); MONOCYTES # (AUTO) 0.5 10^3/uL (0.0-1.0); MONOCYTES % (AUTO) 3.6 %; NEUTROPHILS # (AUTO) 9.9 10^3/uL (1.5-6.6); NEUTROPHILS % (AUTO) 73.7 %; PLT - PLATELET COUNT 561 10^3/uL (130-450); RED BLOOD COUNT 4.55 10^6/uL (4.20-5.40); WHITE BLOOD COUNT 13.4 x10^3/uL (4.8-10.8)
[2018-07-15 15:41] LABS: ALBUMIN 4.1 g/dL (3.2-5.5); ALBUMIN/GLOBULIN RATIO 1.1 (1.0-2.2); BILIRUBIN,TOTAL 0.6 mg/dL (0.2-1.0); CALCIUM 9.5 mg/dL (8.5-10.3); CREATININE 0.7 mg/dL (0.4-1.0); TOTAL PROTEIN 7.8 g/dL (6.7-8.2)
[2018-07-15] MEDS ORDERED: LACTATED RINGERS 2,500 ML IV STA (16:19)
--- NOTE | 2018-07-15 16:25 | ED Physician Documentation ---
History of Present Illness - Stated complaint Stated Complaint: WOUND CHECK/SENT BY - Chief complaint Chief Complaint: Wound - History obtained from History obtained from: Patient, Family - History of Present Illness Timing: How many weeks ago (several) Pain level max: 0 Pain level now: 0 - Additonal information Additional information: R foot wounds for the past several weeks. Sent in by home health nurse. No fevers. Wounds have become increasingly necrotic. She is diabetic. Started with redness to the right fourth toe. Now has open draining wounds to the fourth and fifth digits as well as the plantar aspect of the foot. There is necrotic tissue present per patient. Nothing makes it better or worse. Review of Systems Ten Systems: 10 systems reviewed and negative Constitutional: denies: Fever, Chills Nose: denies: Rhinorrhea / runny nose, Congestion Respiratory: denies: Cough GI: denies: Nausea, Vomiting, Diarrhea : denies: Dysuria Skin: denies: Rash Musculoskeletal: denies: Neck pain, Back pain Neurologic: denies: Headache PD PAST MEDICAL HISTORY - Past Medical History Past Medical History: Yes Cardiovascular: Hypertension, High cholesterol Respiratory: None Neuro: None Endocrine/Autoimmune: Type 2 diabetes GI: Hiatal hernia, Chronic diarrhea, Diverticulitis : None HEENT: Other Psych: Depression, Anxiety, Bipolar disorder Musculoskeletal: None Derm: None - Past Surgical History Past Surgical History: Yes General: Appendectomy, 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 HEENT: Rhinoplasty - Present Medications Home Medications: Ambulatory Orders Medication Instructions Recorded Confirmed Alprazolam [Xanax] 1 mg PO DAILY PRN 02/16/13 07/15/18 Citalopram [CeleXA] 40 mg PO DAILY 02/16/13 07/15/18 Losartan [Cozaar] 50 mg PO DAILY 02/16/13 07/15/18 metFORMIN [Glucophage] 1,000 mg PO BID 02/16/13 07/15/18 Carisoprodol [Soma] 350 mg PO TID PRN 06/30/18 07/15/18 Glimepiride 1 - 2 mg PO BID 06/30/18 07/15/18 Oxycodone HCl 10 mg PO .Q6-8H PRN 06/30/18 07/15/18 clonazePAM [Clonazepam] 0.5 - 1 mg PO TID PRN 06/30/18 07/15/18 Hydrocodone/Acetaminophen 1 each PO DAILY #21 tablet 07/02/18 07/15/18 [Hydrocodone-Acetamin 10-325 mg] oxyCODONE [Roxicodone] 10 mg PO Q4HR PRN #42 tablet 07/02/18 07/15/18 - Allergies Allergies/Adverse Reactions: Allergies Allergy/AdvReac Type Severity Reaction Status Date / Time lisinopril Allergy Unknown Verified 07/15/18 14:47 - Social History Does the pt smoke?: Yes Smoking Status: Current every day smoker Does the pt drink ETOH?: Yes ETOH Use: Other Does the pt have substance abuse?: No - Immunizations Immunizations are current?: Yes - POLST Patient has POLST: No PD ED PE NORMAL - Vitals Vital signs reviewed: Yes - General General: Alert and oriented X 3, No acute distress, Well developed/nourished - HEENT HEENT: PERRL, Moist mucous membranes - Neck Neck: Supple, no meningeal sign - Cardiac Cardiac: RRR, Strong equal pulses - Respiratory Respiratory: No respiratory distress, Clear bilaterally - Abdomen Abdomen: Soft, Non tender, Non distended - Derm Derm: Warm and dry - Extremities Extremities: Other (necrosis to the dorsal aspect of the foot, toes 4-5. de creased sensation. ) - Neuro Neuro: Alert and oriented X 3 - Psych Psych: Normal mood, Normal affect Results - Vitals Vitals: Vital Signs - 24 hr 07/15/18 07/15/18 14:43 16:26 Temperature 36.5 C 36.8 C Heart Rate 95 78 Respiratory 17 12 Rate Blood Pressure 143/56 H 126/75 O2 Saturation 97 96 Oxygen O2 Source Room air - Labs Labs: Laboratory Tests 07/15/18 07/15/18 07/15/18 15:00 15:00 15:00 WBC 13.4 H RBC 4.55 Hgb 12.7 Hct 37.4 MCV 82.1 MCH 27.9 MCHC 34.0 RDW 13.0 Plt Count 561 H MPV 7.6 L Neut # (Auto) 9.9 H Lymph # (Auto) 2.9 [place] # (Auto) 0.5 Eos # (Auto) 0.0 Baso # (Auto) 0.1 Absolute Nucleated RBC 0.01 Nucleated RBC % 0.0 ESR 56 H Sodium 130 L Potassium 3.5 Chloride 95 L Carbon Dioxide 19 L Anion Gap 16.0 H BUN 15 Creatinine 0.7 Estimated GFR (MDRD) 86 L Glucose 285 H Lactic Acid Calcium 9.5 Total Bilirubin 0.6 AST 23 ALT 14 Alkaline Phosphatase 85 C-Reactive Protein Total Protein 7.8 Albumin 4.1 Globulin 3.7 Albumin/Globulin Ratio 1.1 Lipase 26 07/15/18 07/15/18 15:00 15:52 WBC RBC Hgb Hct MCV MCH MCHC RDW Plt Count MPV Neut # (Auto) Lymph # (Auto) [place] # (Auto) Eos # (Auto) Baso # (Auto) Absolute Nucleated RBC Nucleated RBC % ESR Sodium Potassium Chloride Carbon Dioxide Anion Gap BUN Creatinine Estimated GFR (MDRD) Glucose Lactic Acid 5.2 H* Calcium Total Bilirubin AST ALT Alkaline Phosphatase C-Reactive Protein 1.9 H Total Protein Albumin Globulin Albumin/Globulin Ratio Lipase - Rads (name of study) R foot xray Radiology: Prelim report reviewed, EMP read contemporaneously, See rad report (soft tissue injuries.) PD MEDICAL DECISION MAKING - ED course Complexity details: reviewed results, re-evaluated patient, considered differential, d/w patient, d/w family, d/w product consultant ED course: 58-year-old female presents to the emergency department with a worsening diabetic foot ulcer. Given IV fluids, IV antibiotics. She is very well- appearing, nontoxic. Discussed the case with orthopedics, Dr. Stubbs who came and evaluated the patient. Will admit to the hospitalist for IV antibiotics and he will consult. Discussed with Dr. Day, hospitalist who accepts. This document was made in part using voice recognition software. While efforts are made to proofread this document, sound alike and grammatical errors may occur. Departure - Departure Disposition: [facility] DC/Xfer Clinical Impression: Lactic acidosis, Diabetic foot infection Condition: Good Discharge Date/Time: 07/15/18 18:20
--- NOTE | 2018-07-15 16:48 | XRAY Report ---
Reason: R foot wounds Procedure Date: 07/15/2018 Accession Number: [id number] / [id number] Procedure: XR - Foot 3 View RT CPT Code: FULL RESULT: EXAM: RIGHT FOOT RADIOGRAPHY EXAM DATE: 07/15/2018 04:06 PM. CLINICAL HISTORY: Soft tissue wound. COMPARISON: None. TECHNIQUE: 3 views. FINDINGS: Bones: Small plantar calcaneal spur. No definite fracture or other bone lesion. Joints: Normal. No subluxations. Soft Tissues: Mild soft tissue swelling. No soft tissue gas or foreign body. IMPRESSION: Soft tissue injury. RADIA
[2018-07-15] MEDS ORDERED: HYDROcod/ACETAM 5/325 MG TABLET PO PRN (17:20)
[2018-07-15] MEDS ORDERED: SODIUM CHLORIDE FLUSH 0.9% 10 ML SYRINGE IVP PRN (17:20)
--- NOTE | 2018-07-15 17:34 | CONSULTATION NOTE ---
Referring Provider Name of Referring Provider:: Joel Fish MD Consult Date: 07/15/18 Chief Complaint - Chief Complaint Chief Complaint: asked to consult regarding right foot wound History of Present Illness - History Obtained From History obtained from: chart, patient, , Dr. Fish - History of Present Illness HPI Comment/Other: Patient is a 58 yo female with reportedly well controlled diabetes. Was recently admitted for right foot wound and "mild sepsis" around 06/30/[address] in her [facility] in socks. Had foot wound right foot addressed by wound care team and was on IV then oral abx. Patient states was advised to come in as there was concern regarding wound from would care team. Pt seen and examined with Jesus at bedside. Patient and felt that aside from some temporary worsening and swelling yesterday, that her foot wounds were healing. 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 HEENT: reports: Rhinoplasty - POLST Patient has POLST: No Meds/Allgy - Home Medications Home Medications: Ambulatory Orders Medication Instructions Recorded Confirmed Alprazolam [Xanax] 1 mg PO DAILY PRN 02/16/13 07/15/18 Citalopram [CeleXA] 40 mg PO DAILY 02/16/13 07/15/18 Losartan [Cozaar] 50 mg PO DAILY 02/16/13 07/15/18 metFORMIN [Glucophage] 1,000 mg PO BID 02/16/13 07/15/18 Carisoprodol [Soma] 350 mg PO TID PRN 06/30/18 07/15/18 Glimepiride 1 - 2 mg PO BID 06/30/18 07/15/18 Oxycodone HCl 10 mg PO .Q6-8H PRN 06/30/18 07/15/18 clonazePAM [Clonazepam] 0.5 - 1 mg PO TID PRN 06/30/18 07/15/18 Hydrocodone/Acetaminophen 1 each PO DAILY #21 tablet 07/02/18 07/15/18 [Hydrocodone-Acetamin 10-325 mg] oxyCODONE [Roxicodone] 10 mg PO Q4HR PRN #42 tablet 07/02/18 07/15/18 - Allergies Allergies/Adverse Reactions: Allergies Allergy/AdvReac Type Severity Reaction Status Date / Time lisinopril Allergy Unknown Verified 07/15/18 14:47 Exam - Vital Signs Vital Signs: Vital Signs x48h Temp Pulse Resp BP Pulse Ox 07/15/18 16:26 36.8 C 78 12 126/75 96 07/15/18 14:43 36.5 C 95 17 143/56 H 97 - Physical Exam Comments/Other: Patient's RLE has palp DP. cap refill <2sec all toes distally. Dorsolateral wound over lateral 5th phalange extending proximally to over MTP joint and MTP. Appears superficial with clean edges. thin necrotic layer in central portion with sharp edges of demarcation. trace hyperemia at edges 3mm or so in width, no further erythema or streaking. there are skin wrinkles surrounding the wound. similar plantar wound over MTP of 3-5th- absent the necrotic central layer. appears almost epithelialized in central portion with periphery similar to other wound. minimal maceration between 4-5th webspace. no draining no fluctuance Conclusion/Plan - Diagnosis Diagnosis: right foot mutiple wounds dorsolateral and plantar at mcp level. some maceration bwtween 4-5th toes. - Plan Plan: there are signs that the wounds are healing (no erythema, rather minimal hyperemia c/w inflammation. there are wrinkles. no drainage or fluctuance). I think IV abx would be reasonable as patient is diabetic, labs, and was recently septic though does not appear overall sick at this time. recommend dry dressing. do not recommend debridement at this time. would recommend allow necrotic areas to "declare" themselves with potential need for debridement in future. discussed all above with patient and . discussed possible worsening, loss of portion of extremity, sepsis, overall worsening of condition. r/b/a of different approaches discussed. questions answered. verbalized understanding and agreement with plan. will continue to follow - Lab Results Fish Bones: 07/15/18 15:00 07/15/18 15:00
[2018-07-15] MEDS ORDERED: VANCOMYCIN PER PHARMACY 0.1 GM in SODIUM CHLORIDE 0.9% 250 ML IV PRN (18:00)
--- NOTE | 2018-07-15 18:21 | HISTORY & PHYSICAL EXAMINATION ---
Chief Complaint - Chief Complaint Chief Complaint: right foot worsening infection History of Present Illness - History of Present Illness HPI Comment/Other: Ms. Valles is a 58-yrs-old female with a PMH significant for DM2, HTN, HLD, Anxiety, Depression, Bipolar, diverticulitis, who present ER for complaining of worsening right foot infection. Pt reports she was in this hospital about two weeks ago, had two days antibiotics, then she was discharged with PO antibiotics. She report she took her meds including her antibiotics and DM2 medication on time, and she report her glucose level was always controlled. She had wound care nurse visit her in her home three times per week. Pt report her wound nurse believe her wound worsening and recommend her to come to ER. Pt denies fever, chill, chest pain. Pt had CT with contrast on right foot reveals mild cellulitis without abscess two weeks ago. Xray today reveals small plantar calcaneal spur, no definite fracture or other bone lesion, soft tissue injury without soft tissue gas or foreign body. Pt was found high level of lactic acid 5.2, elevated Anion gap 16, Na level 130, glucose 285, elevated WBC 13.4. Serum Ketone is pending. Pt is afebrile otherwise hemodynamically stable now. Orthopedics surgeon Dr. Hilliard was called by ER for consultation. Pt was admitted for right foot infection. History - Past Medical History Cardiovascular: reports: Hypertension, High cholesterol Respiratory: reports: None Neuro: reports: None Endocrine/Autoimmune: reports: Type 2 diabetes GI: reports: Hiatal hernia, Chronic diarrhea, Diverticulitis : reports: None HEENT: reports: Other Psych: reports: Depression, Anxiety, Bipolar disorder Musculoskeletal: reports: None Derm: reports: None MRSA Hx?: No - Past Surgical History General: reports: Appendectomy, Other /PROJECT MANAGEMENT DIRECTOR: reports: Oophrectomy HEENT: reports: Rhinoplasty - Family & Social History Family History: Father: Diabetes, Type 2 Family History Comment/Other: pt report her father had DM2 at ago 60, from DM complication. She currently is disablity. She without child. Social History Notes: pt report she is current cigarett smoker, she denies alcohol and drug issue. - POLST Patient has POLST: No POLST Status: Full Code Meds/Allgy - Home Medications Home Medications: Ambulatory Orders Medication Instructions Recorded Confirmed Alprazolam [Xanax] 1 mg PO DAILY PRN 02/16/13 07/15/18 Citalopram [CeleXA] 40 mg PO DAILY 02/16/13 07/15/18 Losartan [Cozaar] 50 mg PO DAILY 02/16/13 07/15/18 metFORMIN [Glucophage] 1,000 mg PO BID 02/16/13 07/15/18 Carisoprodol [Soma] 350 mg PO TID PRN 06/30/18 07/15/18 Glimepiride 1 - 2 mg PO BID 06/30/18 07/15/18 Oxycodone HCl 10 mg PO .Q6-8H PRN 06/30/18 07/15/18 clonazePAM [Clonazepam] 0.5 - 1 mg PO TID PRN 06/30/18 07/15/18 Hydrocodone/Acetaminophen 1 each PO DAILY #21 tablet 07/02/18 07/15/18 [Hydrocodone-Acetamin 10-325 mg] oxyCODONE [Roxicodone] 10 mg PO Q4HR PRN #42 tablet 07/02/18 07/15/18 - Allergies Allergies/Adverse Reactions: Allergies Allergy/AdvReac Type Severity Reaction Status Date / Time lisinopril Allergy Unknown Verified 07/15/18 14:47 Review of Systems - Constitutional Constitutional: denies: Fatigue, Fever, Chills, Malaise, Weakness, Poor appetite, Diaphoresis, Night sweats, Weight gain, Weight loss - Eyes Eyes: denies: Pain, Irritation, Amaurosis, Blurred vision, Spots in vision, Field loss, Vision loss, Dipolpia - Ears, Nose & Throat Ears, Nose & Throat: denies: Ear pain, Hearing loss, Hearing aids, Tinnitus, Vertigo, Nasal pain, Nasal discharge, Nosebleeds, Nasal obstruction, Nasal congestion, Postnasal drainage, Dentures, Sore throat, Hoarseness - Cardiovascular Cariovascular: denies: Irregular heart rate, Palpitations, Chest pain, Edema, Lightheadedness, Syncope, Exertional dyspnea, Decr. exercise tolerance - Respiratory Respiratory: denies: Cough, Sputum production, Wheezing, Snoring, Hemoptysis, Orthopnea, SOB at rest, SOB with exertion - Gastrointestinal Gastrointestinal: denies: Abdominal pain, Abdominal distention, Constipation, Diarrhea, Change in bowel habits, Rectal bleeding, Black stools, Bloody stools, Nausea, Vomiting, Bile emesis, Sotero blood emesis, Coffee grounds emesis, Reflux/heartburn - Genitourinary Genitourinary: denies: Dysuria, Frequency, Urgency, Hematuria, Incontinence, Flank pain, Nocturia, Urethral discharge - Musculoskeletal Musculoskeletal: denies: Muscle pain, Back pain, Muscle aches, Stiffness, Limited range of motion, Muscle weakness, Gout, Joint pain - Integumentary Integumentary: reports: Rash, Lesions. denies: Dryness, Lumps, Acne, Nail changes - Neurological Neurological: denies: General weakness, Focal weakness, Headache, Dizziness, Numbness, Memory problems, Pre-existing deficit, Abnormal gait, Seizures, Incoordination, Slurred speech - Psychiatric Psychiatric: denies: Depression, Anxiety, Suicidal, Delusions, Hallucinations, Homicidal - Endocrine Endocrine: denies: Polyuria, Polydypsia, Polyphagia, Intolerance to cold - Hematologic/Lymphatic Hematologic/Lymphatic: denies: Anemia, Bruising, Petechiae, Blood clots, Lymphadenopathy, Bleeding tendencies Exam - Vital Signs Reviewed Vital Signs: Yes Vital Signs: Vital Signs x48h Temp Pulse Resp BP Pulse Ox 07/15/18 16:26 36.8 C 78 12 126/75 96 07/15/18 14:43 36.5 C 95 17 143/56 H 97 - Physical Exam General Appearance: positive: No acute distress, Alert. negative: Lethargic Eyes Bilateral: positive: Normal inspection, PERRL, No lid inflammation, Conjunctivae nml ENT: positive: ENT inspection nml, Pharynx nml, No signs of dehydration. negative: Purulent nasal drainage, Pharyngeal erythema, Oral lesions Neck: positive: Nml inspection, Thyroid nml, No JVD, Trachea midline. negative: Thyromegaly, Lymphadenopathy (R), Lymphadenopathy (L), Stiff neck, Swelling/bruising, Tracheal deviation Respiratory: positive: Chest non-tender, No respiratory distress, Breath sounds nml. negative: Wheezes, Rales, Rhonchi Cardiovascular: positive: Regular rate & rhythm, No murmur, No gallop. negative: Irregularly irregular, Extrasystoles, Tachycardia, Bradycardia, JVD present, Systolic murmur, Diastolic murmur Peripheral Pulses: positive: 2+ Abdomen: positive: Non-tender, No organomegaly, Nml bowel sounds, No distention. negative: Tenderness, Guarding, Rebound Back: positive: Nml inspection. negative: CVA tenderness (R), CVA tenderness (L) Skin: positive: Warm, Dry, Skin rash, Decubitus, Laceration (cm). negative: Color nml, No rash, Cyanosis, Diaphoresis, Pallor Extremities: positive: No pedal edema. negative: Non-tender, Nml appearance, Calf tenderness, Joint swelling, Chris's sign/cords Neurologic/Psychiatric: positive: Oriented x3, Mood/affect nml. negative: Weakness, Sensory loss, Facial droop, Slurred/abnml speech, Depressed mood/affect Sepsis Event Note (H) - Evaluation Current Stage of Sepsis: Sepsis Possible source of Sepsis: positive: Skin/soft tissue - Sepsis Criteria Sepsis Criteria: WBC count greater than 10% bands, WBC count greater than 12,000 or less than 4000, Metabolic: lactate > 2 mmol/L Conclusion/Plan - Problem List (1) Diabetic foot infection Conclusion/Plan: The wound seems in the process of healing, no erythema, no drainage, mild swelling. There is a black necrotic area located lateral below the fifth toe. pt had elevated WBC, but no fever, chill. consult with orthopedics, followup IV antibiotics with zosyn, and vancomycin IVF of NS lab and vital monitor (2) Lactic acidosis Conclusion/Plan: pt had elevated lactic acid in previous admission. pt was advised to d/c her home meds Metformin which can cause metabolic lactic acidosis, but pt continue to use Metformin hold Metformin educated and advised pt discontinue to use Metformin, instead of use other DM agents or increase other agent dosage. Advised pt discuss with her PCP to manage her chronic DM continue lab monitor treat underline infection and hyperglycemia IVF of NS (3) HTN (hypertension) Conclusion/Plan: stable, reconcile home BP meds Qualifiers: Hypertension type: essential hypertension Qualified Code(s): I10 - Essential (primary) hypertension (4) Type 2 diabetes mellitus with complication Conclusion/Plan: pt had glucose 285 in the admission. will start slide scale for insulin, ACHS for glucose check, hypoglycemia protocol (5) Chronic pain syndrome Conclusion/Plan: stable, will reconcile her home meds (6) Generalized anxiety disorder Conclusion/Plan: stable, will reconcile her home meds (7) Medical non-compliance Conclusion/Plan: pt did not followup her last hospitalization d/c instruction, continue usage of Metformin. her Lactic acid serum level is still significant high advise and consult with pt for medical compliance. (8) Full code status Conclusion/Plan: pt request full code - Lab Results Fish Bones: 07/16/18 04:50 07/16/18 04:50 Core Measures - Anticipated LOS I expect patient to be DC'd or transferred within 96 hours.: Yes - DVT/VTE - Prophylaxis VTE/DVT Device ordered at admit?: Yes VTE/DVT Prophylaxis med ordered at admit?: Yes
[2018-07-15] MEDS ORDERED: VANCOMYCIN INJ 1 GM in SODIUM CHLORIDE 0.9% 250 ML IV ONE (19:00)
[2018-07-15] MEDS ORDERED: SODIUM CHLORIDE 0.9% 1,000 ML IV SCH (19:00)
[2018-07-15] MEDS: CARISOPRODOL 350 MG PO PRN (19:26)
[2018-07-15] MEDS: oxyCODONE 5 MG TABLET PO PRN (19:26)
[2018-07-15] MEDS: clonazePAM 0.5 MG TABLET PO PRN (19:26)
[2018-07-15] MEDS: INSULIN ASPART 300 UNIT/3 ML PEN SUBQ SCH (20:54)
[2018-07-15] MEDS: FAMOTIDINE 20 MG TABLET PO SCH (20:55)
[2018-07-15] MEDS: PIPERACILLIN/TAZOBACTAM 3.375 GM in SODIUM CHLORIDE 0.9% MINIBAG 100 ML IV SCH (22:20)
[2018-07-15] MEDS: SODIUM CHLORIDE FLUSH 0.9% 10 ML SYRINGE IVP SCH (23:31)
[2018-07-15] MEDS: ALPRAZolam 0.25 MG TABLET PO PRN (23:44)
[2018-07-16] MEDS: ACETAMINOPHEN 325 MG TABLET PO PRN ×3 (02:44→20:28)
[2018-07-16] MEDS: oxyCODONE 5 MG TABLET PO PRN ×4 (02:44→20:28)
[2018-07-16] MEDS: PIPERACILLIN/TAZOBACTAM 3.375 GM in SODIUM CHLORIDE 0.9% MINIBAG 100 ML IV SCH ×4 (04:01→22:29)
[2018-07-16 05:16] LABS: BASOPHILS % (AUTO) 0.5 %; EOSINOPHILS # (AUTO) 0.1 10^3/uL (0.0-0.7); EOSINOPHILS % (AUTO) 1.4 %; LYMPHOCYTES # (AUTO) 2.4 10^3/uL (1.5-3.5); LYMPHOCYTES % (AUTO) 29.2 %; MEAN CORPUSCULAR HGB CONC 33.5 g/dL (32.0-36.0); MEAN CORPUSCULAR VOLUME 83.6 fL (81.0-99.0); MONOCYTES # (AUTO) 0.5 10^3/uL (0.0-1.0); MONOCYTES % (AUTO) 5.8 %; NEUTROPHILS # (AUTO) 5.2 10^3/uL (1.5-6.6); NEUTROPHILS % (AUTO) 63.1 %; PLT - PLATELET COUNT 406 10^3/uL (130-450); RED BLOOD COUNT 3.91 10^6/uL (4.20-5.40); RED CELL DISTRIBUTION WIDTH 13.2 % (12.0-15.0); WHITE BLOOD COUNT 8.3 x10^3/uL (4.8-10.8)
[2018-07-16 05:18] LABS: CALCIUM 8.7 mg/dL (8.5-10.3); CREATININE 0.7 mg/dL (0.4-1.0); MAGNESIUM 1.9 mg/dL (1.7-2.8)
[2018-07-16] MEDS: CARISOPRODOL 350 MG PO PRN ×2 (05:26→23:41)
[2018-07-16 05:52] LABS: HB2 TOTAL 11.8 g/dL; HEMOGLOBIN A1C 0.74 g/dL; HEMOGLOBIN A1C % 7.9 % (4.6-6.2)
[2018-07-16] MEDS: VANCOMYCIN INJ 1 GM, VANCOMYCIN INJ 500 MG in SODIUM CHLORIDE 0.9% 500 ML IV SCH ×2 (05:54→18:14)
[2018-07-16] MEDS ORDERED: INSULIN GLARGINE 300 UNIT/3 ML PEN SUBQ SCH (08:00)
[2018-07-16] MEDS: FAMOTIDINE 20 MG TABLET PO SCH ×2 (08:15→20:27)
[2018-07-16] MEDS: LOSARTAN 50 MG TABLET PO SCH (08:15)
[2018-07-16] MEDS: GLIMEPIRIDE 2 MG TABLET PO SCH (08:15)
[2018-07-16] MEDS: NICOTINE 14 MG PATCH TOP SCH (08:15)
[2018-07-16] MEDS: ENOXAPARIN 40 MG/0.4 ML SYRINGE SUBQ SCH (08:15)
[2018-07-16] MEDS: INSULIN ASPART 300 UNIT/3 ML PEN SUBQ SCH ×4 (08:16→20:28)
[2018-07-16] MEDS: POLYETHYLENE GLYCOL 3350 17 GM PACKET PO SCH (08:18)
[2018-07-16] MEDS: SODIUM CHLORIDE FLUSH 0.9% 10 ML SYRINGE IVP SCH ×3 (08:18→23:41)
[2018-07-16] MEDS: CITALOPRAM 10 MG TABLET PO SCH (08:18)
[2018-07-16] MEDS: ALPRAZolam 0.25 MG TABLET PO PRN (08:24)
[2018-07-16] MEDS: ONDANSETRON 4 MG/2 ML VIAL IVP PRN ×3 (10:39→22:29)
[2018-07-16] MEDS: clonazePAM 0.5 MG TABLET PO PRN ×2 (11:25→20:28)
--- NOTE | 2018-07-16 12:17 | PROVIDER PROGRESS NOTE ---
Subjective - Prog Note Date Prog Note Date: 07/16/18 - Subjective Pt reports feeling: Improved Objective - Vital Signs/Intake & Output Vital Signs: Vital Signs x48h Temp Pulse Pulse Resp BP Pulse Ox 07/16/18 11:18 36.5 C 64 16 128/80 97 07/16/18 09:30 36.5 C 65 14 98 07/16/18 07:36 36.6 C 64 16 131/69 H 96 Intake & Output: Intake & Output 07/13/18 07/14/18 07/15/18 07/16/18 23:59 23:59 23:59 23:59 Intake Total 3852.50 1852.500 Balance 3852.50 1852.500 - Lab Results Fish Bones: 07/16/18 04:50 07/16/18 04:50 Other Labs: Lab Results x24hrs 07/16/18 07/16/18 07/16/18 Range/Units 11:14 07:55 07:28 WBC (4.8-10.8) x10^3/uL RBC (4.20-5.40) 10^6/uL Hgb (12.0-16.0) g/dL Hct (37.0-47.0) % MCV (81.0-99.0) fL MCH (27.0-31.0) pg MCHC (32.0-36.0) g/dL RDW (12.0-15.0) % Plt Count (130-450) 10^3/uL MPV (7.9-10.8) fL Neut # (Auto) (1.5-6.6) 10^3/uL Lymph # (Auto) (1.5-3.5) 10^3/uL [place] # (Auto) (0.0-1.0) 10^3/uL Eos # (Auto) (0.0-0.7) 10^3/uL Baso # (Auto) (0.0-0.1) 10^3/uL Absolute Nucleated RBC x10^3/uL Nucleated RBC % /100WBC ESR (0-30) mm/Hr Sodium (135-145) mmol/L Potassium (3.5-5.0) mmol/L Chloride (101-111) mmol/L Carbon Dioxide (21-32) mmol/L Anion Gap (6-13) BUN (6-20) mg/dL Creatinine (0.4-1.0) mg/dL Estimated GFR (MDRD) (>89) Glucose (70-100) mg/dL POC Whole Bld Glucose 217 H 211 H (70 - 100) mg/dL Glycated Hemoglobin (4.6-6.2) % Estim Average Glucose (70-100) Lactic Acid 3.8 H* (0.5-2.2) mmol/L Calcium (8.5-10.3) mg/dL Magnesium (1.7-2.8) mg/dL Total Bilirubin (0.2-1.0) mg/dL AST (10-42) IU/L ALT (10-60) IU/L Alkaline Phosphatase (42-121) IU/L Troponin I (<0.49) ng/mL C-Reactive Protein (0-1.0) mg/dL Total Protein (6.7-8.2) g/dL Albumin (3.2-5.5) g/dL Globulin (2.1-4.2) g/dL Albumin/Globulin Ratio (1.0-2.2) Lipase (22-51) U/L Serum Ketones (NEGATIVE) 07/16/18 07/16/18 07/16/18 Range/Units 04:50 04:50 04:50 WBC 8.3 (4.8-10.8) x10^3/uL RBC 3.91 L (4.20-5.40) 10^6/uL Hgb 11.0 L (12.0-16.0) g/dL Hct 32.7 L (37.0-47.0) % MCV 83.6 (81.0-99.0) fL MCH 28.0 (27.0-31.0) pg MCHC 33.5 (32.0-36.0) g/dL RDW 13.2 (12.0-15.0) % Plt Count 406 (130-450) 10^3/uL MPV 7.0 L (7.9-10.8) fL Neut # (Auto) 5.2 (1.5-6.6) 10^3/uL Lymph # (Auto) 2.4 (1.5-3.5) 10^3/uL [place] # (Auto) 0.5 (0.0-1.0) 10^3/uL Eos # (Auto) 0.1 (0.0-0.7) 10^3/uL Baso # (Auto) 0.0 (0.0-0.1) 10^3/uL Absolute Nucleated RBC 0.00 x10^3/uL Nucleated RBC % 0.0 /100WBC ESR (0-30) mm/Hr Sodium 139 (135-145) mmol/L Potassium 3.8 (3.5-5.0) mmol/L Chloride 102 (101-111) mmol/L Carbon Dioxide 23 (21-32) mmol/L Anion Gap 14.0 H (6-13) BUN 16 (6-20) mg/dL Creatinine 0.7 (0.4-1.0) mg/dL Estimated GFR (MDRD) 86 L (>89) Glucose 266 H (70-100) mg/dL POC Whole Bld Glucose (70 - 100) mg/dL Glycated Hemoglobin 7.9 H (4.6-6.2) % Estim Average Glucose 180 H (70-100) Lactic Acid (0.5-2.2) mmol/L Calcium 8.7 (8.5-10.3) mg/dL Magnesium 1.9 (1.7-2.8) mg/dL Total Bilirubin (0.2-1.0) mg/dL AST (10-42) IU/L ALT (10-60) IU/L Alkaline Phosphatase (42-121) IU/L Troponin I (<0.49) ng/mL C-Reactive Protein (0-1.0) mg/dL Total Protein (6.7-8.2) g/dL Albumin (3.2-5.5) g/dL Globulin (2.1-4.2) g/dL Albumin/Globulin Ratio (1.0-2.2) Lipase (22-51) U/L Serum Ketones (NEGATIVE) 07/15/18 07/15/18 07/15/18 Range/Units 20:53 18:54 18:54 WBC (4.8-10.8) x10^3/uL RBC (4.20-5.40) 10^6/uL Hgb (12.0-16.0) g/dL Hct (37.0-47.0) % MCV (81.0-99.0) fL MCH (27.0-31.0) pg MCHC (32.0-36.0) g/dL RDW (12.0-15.0) % Plt Count (130-450) 10^3/uL MPV (7.9-10.8) fL Neut # (Auto) (1.5-6.6) 10^3/uL Lymph # (Auto) (1.5-3.5) 10^3/uL [place] # (Auto) (0.0-1.0) 10^3/uL Eos # (Auto) (0.0-0.7) 10^3/uL Baso # (Auto) (0.0-0.1) 10^3/uL Absolute Nucleated RBC x10^3/uL Nucleated RBC % /100WBC ESR (0-30) mm/Hr Sodium (135-145) mmol/L Potassium (3.5-5.0) mmol/L Chloride (101-111) mmol/L Carbon Dioxide (21-32) mmol/L Anion Gap (6-13) BUN (6-20) mg/dL Creatinine (0.4-1.0) mg/dL Estimated GFR (MDRD) (>89) Glucose (70-100) mg/dL POC Whole Bld Glucose 281 H (70 - 100) mg/dL Glycated Hemoglobin (4.6-6.2) % Estim Average Glucose (70-100) Lactic Acid (0.5-2.2) mmol/L Calcium (8.5-10.3) mg/dL Magnesium (1.7-2.8) mg/dL Total Bilirubin (0.2-1.0) mg/dL AST (10-42) IU/L ALT (10-60) IU/L Alkaline Phosphatase (42-121) IU/L Troponin I < 0.04 (<0.49) ng/mL C-Reactive Protein (0-1.0) mg/dL Total Protein (6.7-8.2) g/dL Albumin (3.2-5.5) g/dL Globulin (2.1-4.2) g/dL Albumin/Globulin Ratio (1.0-2.2) Lipase (22-51) U/L Serum Ketones NEGATIVE (NEGATIVE) 07/15/18 07/15/18 07/15/18 Range/Units 18:54 15:52 15:00 WBC (4.8-10.8) x10^3/uL RBC (4.20-5.40) 10^6/uL Hgb (12.0-16.0) g/dL Hct (37.0-47.0) % MCV (81.0-99.0) fL MCH (27.0-31.0) pg MCHC (32.0-36.0) g/dL RDW (12.0-15.0) % Plt Count (130-450) 10^3/uL MPV (7.9-10.8) fL Neut # (Auto) (1.5-6.6) 10^3/uL Lymph # (Auto) (1.5-3.5) 10^3/uL [place] # (Auto) (0.0-1.0) 10^3/uL Eos # (Auto) (0.0-0.7) 10^3/uL Baso # (Auto) (0.0-0.1) 10^3/uL Absolute Nucleated RBC x10^3/uL Nucleated RBC % /100WBC ESR (0-30) mm/Hr Sodium (135-145) mmol/L Potassium (3.5-5.0) mmol/L Chloride (101-111) mmol/L Carbon Dioxide (21-32) mmol/L Anion Gap (6-13) BUN (6-20) mg/dL Creatinine (0.4-1.0) mg/dL Estimated GFR (MDRD) (>89) Glucose (70-100) mg/dL POC Whole Bld Glucose (70 - 100) mg/dL Glycated Hemoglobin (4.6-6.2) % Estim Average Glucose (70-100) Lactic Acid 5.2 H* 5.2 H* (0.5-2.2) mmol/L Calcium (8.5-10.3) mg/dL Magnesium (1.7-2.8) mg/dL Total Bilirubin (0.2-1.0) mg/dL AST (10-42) IU/L ALT (10-60) IU/L Alkaline Phosphatase (42-121) IU/L Troponin I (<0.49) ng/mL C-Reactive Protein 1.9 H (0-1.0) mg/dL Total Protein (6.7-8.2) g/dL Albumin (3.2-5.5) g/dL Globulin (2.1-4.2) g/dL Albumin/Globulin Ratio (1.0-2.2) Lipase (22-51) U/L Serum Ketones (NEGATIVE) 07/15/18 07/15/18 07/15/18 Range/Units 15:00 15:00 15:00 WBC 13.4 H (4.8-10.8) x10^3/uL RBC 4.55 (4.20-5.40) 10^6/uL Hgb 12.7 (12.0-16.0) g/dL Hct 37.4 (37.0-47.0) % MCV 82.1 (81.0-99.0) fL MCH 27.9 (27.0-31.0) pg MCHC 34.0 (32.0-36.0) g/dL RDW 13.0 (12.0-15.0) % Plt Count 561 H (130-450) 10^3/uL MPV 7.6 L (7.9-10.8) fL Neut # (Auto) 9.9 H (1.5-6.6) 10^3/uL Lymph # (Auto) 2.9 (1.5-3.5) 10^3/uL [place] # (Auto) 0.5 (0.0-1.0) 10^3/uL Eos # (Auto) 0.0 (0.0-0.7) 10^3/uL Baso # (Auto) 0.1 (0.0-0.1) 10^3/uL Absolute Nucleated RBC 0.01 x10^3/uL Nucleated RBC % 0.0 /100WBC ESR 56 H (0-30) mm/Hr Sodium 130 L (135-145) mmol/L Potassium 3.5 (3.5-5.0) mmol/L Chloride 95 L (101-111) mmol/L Carbon Dioxide 19 L (21-32) mmol/L Anion Gap 16.0 H (6-13) BUN 15 (6-20) mg/dL Creatinine 0.7 (0.4-1.0) mg/dL Estimated GFR (MDRD) 86 L (>89) Glucose 285 H (70-100) mg/dL POC Whole Bld Glucose (70 - 100) mg/dL Glycated Hemoglobin (4.6-6.2) % Estim Average Glucose (70-100) Lactic Acid (0.5-2.2) mmol/L Calcium 9.5 (8.5-10.3) mg/dL Magnesium (1.7-2.8) mg/dL Total Bilirubin 0.6 (0.2-1.0) mg/dL AST 23 (10-42) IU/L ALT 14 (10-60) IU/L Alkaline Phosphatase 85 (42-121) IU/L Troponin I (<0.49) ng/mL C-Reactive Protein (0-1.0) mg/dL Total Protein 7.8 (6.7-8.2) g/dL Albumin 4.1 (3.2-5.5) g/dL Globulin 3.7 (2.1-4.2) g/dL Albumin/Globulin Ratio 1.1 (1.0-2.2) Lipase 26 (22-51) U/L Serum Ketones (NEGATIVE) Sepsis Event Note (H) - Evaluation Current Stage of Sepsis: Sepsis Possible source of Sepsis: positive: Skin/soft tissue - Sepsis Criteria Sepsis Criteria: WBC count greater than 10% bands, WBC count greater than 12,000 or less than 4000, Metabolic: lactate > 2 mmol/L Assessment/Plan - Problem List (1) Diabetic foot infection Impression: pt report she feel better, swelling is better. no drainage. WBC is down to normal continue antibiotics continue Wound care, followup wound consult The wound seems in the process of healing, no erythema, no drainage, mild swelling. There is a black necrotic area located lateral below the fifth toe. pt had elevated WBC, but no fever, chill. consult with orthopedics, followup IV antibiotics with zosyn, and vancomycin IVF of NS lab and vital monitor (2) Lactic acidosis Conclusion/Plan: 4/5 Lactic acid is reduced to 3.8 from 5.2. advise pt d/c Metformin, explain the reason why d/c Metformin, and effects and side effect of Metformin pt had elevated lactic acid in previous admission. pt was advised to d/c her home meds Metformin which can cause metabolic lactic acidosis, but pt continue to use Metformin hold Metformin educated and advised pt discontinue to use Metformin, instead of use other DM agents or increase other agent dosage. Advised pt discuss with her PCP to manage her chronic DM continue lab monitor treat underline infection and hyperglycemia IVF of NS (3) HTN (hypertension) Conclusion/Plan: stable, reconcile home BP meds (4) Type 2 diabetes mellitus with complication Conclusion/Plan: 07/16 add Lantus on morning, continue slide scale pt had glucose 285 in the admission. will start slide scale for insulin, ACHS for glucose check, hypoglycemia protocol (5) Chronic pain syndrome Conclusion/Plan: stable, will reconcile her home meds (6) Generalized anxiety disorder Conclusion/Plan: stable, will reconcile her home meds (7) Medical non-compliance Conclusion/Plan: pt did not followup her last hospitalization d/c instruction, continue usage of Metformin. her Lactic acid serum level is still significant high advise and consult with pt for medical compliance. (3) HTN (hypertension) Qualifiers: Hypertension type: essential hypertension Qualified Code(s): I10 - Essential (primary) hypertension
[2018-07-16] MEDS ORDERED: GLIMEPIRIDE 2 MG TABLET PO SCH (17:00)
--- NOTE | 2018-07-16 22:58 | PROVIDER PROGRESS NOTE ---
Subjective - Prog Note Date Prog Note Date: 07/16/18 - Subjective Pt reports feeling: Improved Objective - Vital Signs/Intake & Output Vital Signs: Vital Signs x48h Temp Pulse Resp BP Pulse Ox 07/16/18 20:17 36.7 C 68 16 136/71 H 98 07/16/18 15:32 36.6 C 66 16 142/70 H 97 Intake & Output: Intake & Output 07/13/18 07/14/18 07/15/18 07/16/18 23:59 23:59 23:59 23:59 Intake Total 3852.50 4352.500 Balance 3852.50 4352.500 - Lab Results Fish Bones: 07/16/18 04:50 07/16/18 04:50 Other Labs: Lab Results x24hrs 07/16/18 07/16/18 07/16/18 Range/Units 20:15 16:22 16:21 WBC (4.8-10.8) x10^3/uL RBC (4.20-5.40) 10^6/uL Hgb (12.0-16.0) g/dL Hct (37.0-47.0) % MCV (81.0-99.0) fL MCH (27.0-31.0) pg MCHC (32.0-36.0) g/dL RDW (12.0-15.0) % Plt Count (130-450) 10^3/uL MPV (7.9-10.8) fL Neut # (Auto) (1.5-6.6) 10^3/uL Lymph # (Auto) (1.5-3.5) 10^3/uL [place] # (Auto) (0.0-1.0) 10^3/uL Eos # (Auto) (0.0-0.7) 10^3/uL Baso # (Auto) (0.0-0.1) 10^3/uL Absolute Nucleated RBC x10^3/uL Nucleated RBC % /100WBC Sodium (135-145) mmol/L Potassium (3.5-5.0) mmol/L Chloride (101-111) mmol/L Carbon Dioxide (21-32) mmol/L Anion Gap (6-13) BUN (6-20) mg/dL Creatinine (0.4-1.0) mg/dL Estimated GFR (MDRD) (>89) Glucose (70-100) mg/dL POC Whole Bld Glucose 253 H 183 H (70 - 100) mg/dL Glycated Hemoglobin (4.6-6.2) % Estim Average Glucose (70-100) Lactic Acid 2.8 H (0.5-2.2) mmol/L Calcium (8.5-10.3) mg/dL Magnesium (1.7-2.8) mg/dL 07/16/18 07/16/18 07/16/18 Range/Units 11:14 07:55 07:28 WBC (4.8-10.8) x10^3/uL RBC (4.20-5.40) 10^6/uL Hgb (12.0-16.0) g/dL Hct (37.0-47.0) % MCV (81.0-99.0) fL MCH (27.0-31.0) pg MCHC (32.0-36.0) g/dL RDW (12.0-15.0) % Plt Count (130-450) 10^3/uL MPV (7.9-10.8) fL Neut # (Auto) (1.5-6.6) 10^3/uL Lymph # (Auto) (1.5-3.5) 10^3/uL [place] # (Auto) (0.0-1.0) 10^3/uL Eos # (Auto) (0.0-0.7) 10^3/uL Baso # (Auto) (0.0-0.1) 10^3/uL Absolute Nucleated RBC x10^3/uL Nucleated RBC % /100WBC Sodium (135-145) mmol/L Potassium (3.5-5.0) mmol/L Chloride (101-111) mmol/L Carbon Dioxide (21-32) mmol/L Anion Gap (6-13) BUN (6-20) mg/dL Creatinine (0.4-1.0) mg/dL Estimated GFR (MDRD) (>89) Glucose (70-100) mg/dL POC Whole Bld Glucose 217 H 211 H (70 - 100) mg/dL Glycated Hemoglobin (4.6-6.2) % Estim Average Glucose (70-100) Lactic Acid 3.8 H* (0.5-2.2) mmol/L Calcium (8.5-10.3) mg/dL Magnesium (1.7-2.8) mg/dL 07/16/18 07/16/18 07/16/18 Range/Units 04:50 04:50 04:50 WBC 8.3 (4.8-10.8) x10^3/uL RBC 3.91 L (4.20-5.40) 10^6/uL Hgb 11.0 L (12.0-16.0) g/dL Hct 32.7 L (37.0-47.0) % MCV 83.6 (81.0-99.0) fL MCH 28.0 (27.0-31.0) pg MCHC 33.5 (32.0-36.0) g/dL RDW 13.2 (12.0-15.0) % Plt Count 406 (130-450) 10^3/uL MPV 7.0 L (7.9-10.8) fL Neut # (Auto) 5.2 (1.5-6.6) 10^3/uL Lymph # (Auto) 2.4 (1.5-3.5) 10^3/uL [place] # (Auto) 0.5 (0.0-1.0) 10^3/uL Eos # (Auto) 0.1 (0.0-0.7) 10^3/uL Baso # (Auto) 0.0 (0.0-0.1) 10^3/uL Absolute Nucleated RBC 0.00 x10^3/uL Nucleated RBC % 0.0 /100WBC Sodium 139 (135-145) mmol/L Potassium 3.8 (3.5-5.0) mmol/L Chloride 102 (101-111) mmol/L Carbon Dioxide 23 (21-32) mmol/L Anion Gap 14.0 H (6-13) BUN 16 (6-20) mg/dL Creatinine 0.7 (0.4-1.0) mg/dL Estimated GFR (MDRD) 86 L (>89) Glucose 266 H (70-100) mg/dL POC Whole Bld Glucose (70 - 100) mg/dL Glycated Hemoglobin 7.9 H (4.6-6.2) % Estim Average Glucose 180 H (70-100) Lactic Acid (0.5-2.2) mmol/L Calcium 8.7 (8.5-10.3) mg/dL Magnesium 1.9 (1.7-2.8) mg/dL - Other Results/Comments Other Results/Comments: right foot wounds dry. edges clean. minimal hyperemia periphery of dorsolateral and plantar wounds. no additional erythema, maceration improved. foot cpts soft. cap refill <2sec dig. Sepsis Event Note (H) - Evaluation Current Stage of Sepsis: Sepsis Possible source of Sepsis: positive: Skin/soft tissue - Sepsis Criteria Sepsis Criteria: WBC count greater than 10% bands, WBC count greater than 12,000 or less than 4000, Metabolic: lactate > 2 mmol/L Assessment/Plan - Problem List (1) Diabetic foot infection Impression: right foot appears mildly improved. though xeroform inplace- recommend dry dressing. if must use xeroform- recommend single layer. cont abx per Medical team. cont to observe/cont plan
[2018-07-16] MEDS: ZOLPIDEM 5 MG TABLET PO PRN (23:41)
[2018-07-17] MEDS: PIPERACILLIN/TAZOBACTAM 3.375 GM in SODIUM CHLORIDE 0.9% MINIBAG 100 ML IV SCH ×4 (04:15→22:32)
[2018-07-17 05:58] LABS: BASOPHILS % (AUTO) 0.7 %; EOSINOPHILS # (AUTO) 0.1 10^3/uL (0.0-0.7); EOSINOPHILS % (AUTO) 2.3 %; HGB - HEMOGLOBIN 10.9 g/dL (12.0-16.0); LYMPHOCYTES # (AUTO) 2.5 10^3/uL (1.5-3.5); LYMPHOCYTES % (AUTO) 37.6 %; MEAN CORPUSCULAR HEMOGLOBIN 27.8 pg (27.0-31.0); MEAN CORPUSCULAR HGB CONC 33.5 g/dL (32.0-36.0); MONOCYTES # (AUTO) 0.4 10^3/uL (0.0-1.0); MONOCYTES % (AUTO) 5.8 %; NEUTROPHILS # (AUTO) 3.5 10^3/uL (1.5-6.6); NEUTROPHILS % (AUTO) 53.6 %; PLT - PLATELET COUNT 374 10^3/uL (130-450); RED BLOOD COUNT 3.93 10^6/uL (4.20-5.40); RED CELL DISTRIBUTION WIDTH 13.1 % (12.0-15.0); WHITE BLOOD COUNT 6.6 x10^3/uL (4.8-10.8)
[2018-07-17 06:03] LABS: CALCIUM 8.4 mg/dL (8.5-10.3); CREATININE 0.6 mg/dL (0.4-1.0); VANCOMYCIN,TROUGH 11.2 ug/mL (10.0-20.0)
[2018-07-17] MEDS: VANCOMYCIN INJ 1 GM, VANCOMYCIN INJ 500 MG in SODIUM CHLORIDE 0.9% 500 ML IV SCH ×2 (06:13→18:18)
[2018-07-17] MEDS: CITALOPRAM 10 MG TABLET PO SCH (07:55)
[2018-07-17] MEDS: SACCHAROMYCES BOULARDII 250 MG CAPSULE PO SCH ×2 (07:56→16:51)
[2018-07-17] MEDS: FAMOTIDINE 20 MG TABLET PO SCH ×2 (07:56→22:01)
[2018-07-17] MEDS: ENOXAPARIN 40 MG/0.4 ML SYRINGE SUBQ SCH (07:56)
[2018-07-17] MEDS: LOSARTAN 50 MG TABLET PO SCH (07:56)
[2018-07-17] MEDS: GLIMEPIRIDE 2 MG TABLET PO SCH ×2 (07:56→16:51)
[2018-07-17] MEDS: NICOTINE 14 MG PATCH TOP SCH (07:56)
[2018-07-17] MEDS: SODIUM CHLORIDE FLUSH 0.9% 10 ML SYRINGE IVP SCH ×3 (07:57→23:56)
[2018-07-17] MEDS: POLYETHYLENE GLYCOL 3350 17 GM PACKET PO SCH (07:57)
[2018-07-17] MEDS ORDERED: INSULIN GLARGINE 300 UNIT/3 ML PEN SUBQ SCH (08:00)
[2018-07-17] MEDS: INSULIN ASPART 300 UNIT/3 ML PEN SUBQ SCH ×4 (08:02→22:09)
[2018-07-17] MEDS: clonazePAM 0.5 MG TABLET PO PRN ×2 (08:59→20:36)
[2018-07-17] MEDS: ACETAMINOPHEN 325 MG TABLET PO PRN ×3 (09:13→20:09)
[2018-07-17] MEDS: oxyCODONE 5 MG TABLET PO PRN ×3 (09:13→20:06)
[2018-07-17] MEDS: SODIUM CHLORIDE 0.9% 500 ML IV PRN (11:30)
--- NOTE | 2018-07-17 11:44 | PROVIDER PROGRESS NOTE ---
Subjective - Prog Note Date Prog Note Date: 07/17/18 - Subjective Pt reports feeling: Improved Subjective: wound care provider saw pt and wrap the wound. she will see pt on Thursday. pt denies pain on foot, denies fever, chill. she feel better for her infection. Current Medications - Current Medications Current Medications: Active Medications Acetaminophen (Tylenol) 650 mg PO Q4HR PRN PRN Reason: Pain 1 to 4 Last Admin: 07/17/18 09:13 Dose: 650 mg Alprazolam (Xanax) 1 mg PO DAILY PRN PRN Reason: Anxiety Last Admin: 07/16/18 08:24 Dose: 1 mg Citalopram Hydrobromide (Celexa) 40 mg PO DAILY [facility] Last Admin: 07/17/18 07:55 Dose: 40 mg Clonazepam (Klonopin) 0.5 mg PO TID PRN PRN Reason: Anxiety Last Admin: 07/17/18 08:59 Dose: 0.5 mg Enoxaparin Sodium (Lovenox) 40 mg SUBQ DAILY [facility] Last Admin: 07/17/18 07:56 Dose: 40 mg Famotidine (Pepcid) 20 mg PO BID [facility] Last Admin: 07/17/18 07:56 Dose: 20 mg Glimepiride (Amaryl) 2 mg PO QDDINNER [facility] Glimepiride (Amaryl) 4 mg PO QDBREAKFAST [facility] Piperacillin Sod/Tazobactam (Sod 3.375 gm/ Sodium Chloride) 100 mls @ 200 mls/hr IV Q6H [facility] Last Infusion: 07/17/18 11:00 Dose: Infused Vancomycin HCl 1 gm/Vancomycin HCl 500 mg/ Sodium Chloride 500 mls @ 250 mls/hr IV Q12H [facility] Last Infusion: 07/17/18 08:15 Dose: Infused Sodium Chloride (Normal Saline 0.9%) 500 mls @ 0 mls/hr IV Q24H PRN PRN Reason: TKO RATE Last Admin: 07/17/18 11:30 Dose: 10 mls/hr Insulin Aspart (Novolog) 2 - 10 unit SUBQ 0800,1200,1700,2100 [facility]; Protocol Last Admin: 07/17/18 11:51 Dose: 6 unit Insulin Glargine (Lantus Solostar) 8 unit SUBQ QDBREAKFAST [facility] Last Admin: 07/17/18 08:02 Dose: 8 unit Losartan Potassium (Cozaar) 50 mg PO DAILY [facility] Last Admin: 07/17/18 07:56 Dose: 50 mg Nicotine (Nicoderm) 1 patch TOP DAILY [facility] Last Admin: 07/17/18 07:56 Dose: 1 patch Ondansetron HCl (Zofran Inj) 4 mg IVP Q6HR PRN PRN Reason: Nausea / Vomiting Last Admin: 07/16/18 22:29 Dose: 4 mg Oxycodone HCl (Roxicodone) 10 mg PO Q4HR PRN PRN Reason: Pain 5 to 7 Last Admin: 07/17/18 09:13 Dose: 10 mg Carisoprodol [Soma] (350 Mg Tab) 1 each PO TID PRN PRN Reason: PAIN Last Admin: 07/16/18 23:41 Dose: 1 each Polyethylene Glycol (Miralax) 17 gm PO DAILY [facility] Last Admin: 07/17/18 07:57 Dose: Not Given Saccharomyces Boulardii (Florastor) 250 mg PO BIDWM [facility] Last Admin: 07/17/18 07:56 Dose: 250 mg Sodium Chloride (Normal Saline Flush 0.9%) 10 ml IVP PRN PRN PRN Reason: NEEDED PER PROVIDER ORDERS Sodium Chloride (Normal Saline Flush 0.9%) 10 ml IVP 0100,0900,1700 [facility] Last Admin: 07/17/18 07:57 Dose: 10 ml Zolpidem Tartrate (Ambien) 5 mg PO QPM PRN PRN Reason: Insomnia Last Admin: 07/16/18 23:41 Dose: 5 mg Alprazolam [Xanax] 1 mg PO DAILY PRN 02/16/13 Citalopram [CeleXA] 40 mg PO DAILY 02/16/13 Losartan [Cozaar] 50 mg PO DAILY 02/16/13 metFORMIN [Glucophage] 1,000 mg PO BID 02/16/13 Carisoprodol [Soma] 350 mg PO TID PRN 06/30/18 Glimepiride 2 mg PO DAILY 06/30/18 Oxycodone HCl 10 mg PO .Q6-8H PRN 06/30/18 clonazePAM [Clonazepam] 0.5 - 1 mg PO TID PRN 06/30/18 Glimepiride [Amaryl] 1 mg PO QPM 07/16/18 Objective - Vital Signs/Intake & Output Reviewed Vital Signs: Yes Vital Signs: Vital Signs x48h Temp Pulse Resp BP BP Pulse Ox 07/17/18 07:30 36.5 C 63 18 153/69 H 98 07/17/18 04:10 36.6 C 74 16 156/69 H 100 Intake & Output: Intake & Output 07/14/18 07/15/18 07/16/18 07/17/18 23:59 23:59 23:59 23:59 Intake Total 3852.50 4452.500 1440 Balance 3852.50 4452.500 1440 - Objective General Appearance: positive: No acute distress, Alert. negative: Lethargic Eyes Bilateral: positive: Normal inspection, PERRL, No lid inflammation, Conj unctivae nml ENT: positive: ENT inspection nml, Pharynx nml, No signs of dehydration. negative: Purulent nasal drainage, Pharyngeal erythema, Oral lesions Neck: positive: Nml inspection, Thyroid nml, No JVD, Trachea midline. negative: Thyromegaly, Stiff neck, Swelling/bruising, Tracheal deviation Respiratory: positive: Chest non-tender, No respiratory distress, Breath sounds nml. negative: Wheezes, Rales, Rhonchi Cardiovascular: positive: Regular rate & rhythm, No murmur, No gallop. negative : Irregularly irregular, Extrasystoles, Tachycardia, Bradycardia, JVD present, Systolic murmur, Diastolic murmur Peripheral Pulses: 2+ Radial (R), 2+ Radial (L), 2+ Dorsalis pedis (R), 2+ Dorsalis pedis (L) Abdomen: positive: Non-tender, No organomegaly, Nml bowel sounds, No distention. negative: Tenderness, Guarding, Rebound Back: positive: Nml inspection. negative: CVA tenderness (R), CVA tenderness (L) Skin: positive: Warm, Dry, Skin rash, Laceration (cm). negative: Cyanosis, Diaphoresis, Pallor Extremities: positive: Non-tender, Full ROM. negative: Calf tenderness, Joint swelling, Chris's sign/cords Neurologic/Psychiatric: positive: Oriented x3, Sensation nml, Mood/affect nml. negative: Weakness, Sensory loss, Facial droop, Slurred/abnml speech, Depressed mood/affect - Lab Results Fish Bones: 07/17/18 05:45 07/17/18 05:45 Other Labs: Lab Results x24hrs 07/17/18 07/17/18 07/17/18 Range/Units 07:59 07:38 05:45 WBC (4.8-10.8) x10^3/uL RBC (4.20-5.40) 10^6/uL Hgb (12.0-16.0) g/dL Hct (37.0-47.0) % MCV (81.0-99.0) fL MCH (27.0-31.0) pg MCHC (32.0-36.0) g/dL RDW (12.0-15.0) % Plt Count (130-450) 10^3/uL MPV (7.9-10.8) fL Neut # (Auto) (1.5-6.6) 10^3/uL Lymph # (Auto) (1.5-3.5) 10^3/uL [place] # (Auto) (0.0-1.0) 10^3/uL Eos # (Auto) (0.0-0.7) 10^3/uL Baso # (Auto) (0.0-0.1) 10^3/uL Absolute Nucleated RBC x10^3/uL Nucleated RBC % /100WBC Sodium (135-145) mmol/L Potassium (3.5-5.0) mmol/L Chloride (101-111) mmol/L Carbon Dioxide (21-32) mmol/L Anion Gap (6-13) BUN (6-20) mg/dL Creatinine (0.4-1.0) mg/dL Estimated GFR (MDRD) (>89) Glucose (70-100) mg/dL POC Whole Bld Glucose 195 H (70 - 100) mg/dL Lactic Acid 2.9 H (0.5-2.2) mmol/L Calcium (8.5-10.3) mg/dL Last Dose Date UNK Last Dose Time UNK Vancomycin Trough 11.2 (10.0-20.0) ug/mL 07/17/18 07/17/18 07/16/18 Range/Units 05:45 05:45 20:15 WBC 6.6 (4.8-10.8) x10^3/uL RBC 3.93 L (4.20-5.40) 10^6/uL Hgb 10.9 L (12.0-16.0) g/dL Hct 32.6 L (37.0-47.0) % MCV 83.0 (81.0-99.0) fL MCH 27.8 (27.0-31.0) pg MCHC 33.5 (32.0-36.0) g/dL RDW 13.1 (12.0-15.0) % Plt Count 374 (130-450) 10^3/uL MPV 7.0 L (7.9-10.8) fL Neut # (Auto) 3.5 (1.5-6.6) 10^3/uL Lymph # (Auto) 2.5 (1.5-3.5) 10^3/uL [place] # (Auto) 0.4 (0.0-1.0) 10^3/uL Eos # (Auto) 0.1 (0.0-0.7) 10^3/uL Baso # (Auto) 0.0 (0.0-0.1) 10^3/uL Absolute Nucleated RBC 0.01 x10^3/uL Nucleated RBC % 0.1 /100WBC Sodium 140 (135-145) mmol/L Potassium 3.8 (3.5-5.0) mmol/L Chloride 106 (101-111) mmol/L Carbon Dioxide 24 (21-32) mmol/L Anion Gap 10.0 (6-13) BUN 14 (6-20) mg/dL Creatinine 0.6 (0.4-1.0) mg/dL Estimated GFR (MDRD) 103 (>89) Glucose 196 H (70-100) mg/dL POC Whole Bld Glucose 253 H (70 - 100) mg/dL Lactic Acid (0.5-2.2) mmol/L Calcium 8.4 L (8.5-10.3) mg/dL Last Dose Date Last Dose Time Vancomycin Trough (10.0-20.0) ug/mL 07/16/18 07/16/18 Range/Units 16:22 16:21 WBC (4.8-10.8) x10^3/uL RBC (4.20-5.40) 10^6/uL Hgb (12.0-16.0) g/dL Hct (37.0-47.0) % MCV (81.0-99.0) fL MCH (27.0-31.0) pg MCHC (32.0-36.0) g/dL RDW (12.0-15.0) % Plt Count (130-450) 10^3/uL MPV (7.9-10.8) fL Neut # (Auto) (1.5-6.6) 10^3/uL Lymph # (Auto) (1.5-3.5) 10^3/uL [place] # (Auto) (0.0-1.0) 10^3/uL Eos # (Auto) (0.0-0.7) 10^3/uL Baso # (Auto) (0.0-0.1) 10^3/uL Absolute Nucleated RBC x10^3/uL Nucleated RBC % /100WBC Sodium (135-145) mmol/L Potassium (3.5-5.0) mmol/L Chloride (101-111) mmol/L Carbon Dioxide (21-32) mmol/L Anion Gap (6-13) BUN (6-20) mg/dL Creatinine (0.4-1.0) mg/dL Estimated GFR (MDRD) (>89) Glucose (70-100) mg/dL POC Whole Bld Glucose 183 H (70 - 100) mg/dL Lactic Acid 2.8 H (0.5-2.2) mmol/L Calcium (8.5-10.3) mg/dL Last Dose Date Last Dose Time Vancomycin Trough (10.0-20.0) ug/mL ABX Reporting Has patient been on IV antibiotics over the past 48 hours?: Yes Sepsis Event Note (H) - Evaluation Current Stage of Sepsis: Sepsis Possible source of Sepsis: positive: Skin/soft tissue - Sepsis Criteria Sepsis Criteria: WBC count greater than 10% bands, WBC count greater than 12,000 or less than 4000, Metabolic: lactate > 2 mmol/L Assessment/Plan - Problem List (1) Diabetic foot infection Impression: 07/17 wound care provider cover the wound, she will see pt on Thursday. pt report she feel better. No fever. chill. No pain reported. continue antibiotics continue lab and vital monitor may consider MRI on Thursday, then D/C on PO antibiotics / pt report she feel better, swelling is better. no drainage. WBC is down to normal continue antibiotics continue Wound care, followup wound consult The wound seems in the process of healing, no erythema, no drainage, mild swelling. There is a black necrotic area located lateral below the fifth toe. pt had elevated WBC, but no fever, chill. consult with orthopedics, followup IV antibiotics with zosyn, and vancomycin IVF of NS lab and vital monitor (2) Lactic acidosis Conclusion/Plan: 07/17 reduced to 2.9, continue lab monitor. pt is d/c Metformin now continue antibiotics 07/16 Lactic acid is reduced to 3.8 from 5.2. advise pt d/c Metformin, explain the reason why d/c Metformin, and effects and side effect of Metformin pt had elevated lactic acid in previous admission. pt was advised to d/c her home meds Metformin which can cause metabolic lactic acidosis, but pt continue to use Metformin hold Metformin educated and advised pt discontinue to use Metformin, instead of use other DM agents or increase other agent dosage. Advised pt discuss with her PCP to manage her chronic DM continue lab monitor treat underline infection and hyperglycemia IVF of NS (3) HTN (hypertension) Conclusion/Plan: stable, reconcile home BP meds (4) Type 2 diabetes mellitus with complication Conclusion/Plan: 07/17 increase pt's home Aramly dosage to 2mg on QPM, and 4mg on QBR continue slide scale, ACHS to monitor glucose level / add Lantus on morning, continue slide scale pt had glucose 285 in the admission. will start slide scale for insulin, ACHS for glucose check, hypoglycemia protocol (5) Chronic pain syndrome Conclusion/Plan: stable, will reconcile her home meds (6) Generalized anxiety disorder Conclusion/Plan: stable, will reconcile her home meds (7) Medical non-compliance Conclusion/Plan: pt did not followup her last hospitalization d/c instruction, continue usage of Metformin. her Lactic acid serum level is still significant high advise and consult with pt for medical compliance. (3) HTN (hypertension) Qualifiers: Hypertension type: essential hypertension Qualified Code(s): I10 - Essential (primary) hypertension
--- NOTE | 2018-07-17 12:35 | PROVIDER PROGRESS NOTE ---
Subjective - Subjective Pt reports feeling: No change (patient awake and in good spirits- advises that orthopedic cast specialist insisted that dressing not be removed.) Objective - Vital Signs/Intake & Output Vital Signs: Vital Signs x48h Temp Pulse Resp BP Pulse Ox 07/17/18 07:30 36.5 C 63 18 153/69 H 98 Intake & Output: Intake & Output 07/14/18 07/15/18 07/16/18 07/17/18 23:59 23:59 23:59 23:59 Intake Total 3852.50 4452.500 1440 Balance 3852.50 4452.500 1440 - Lab Results Fish Bones: 07/17/18 05:45 07/17/18 05:45 Other Labs: Lab Results x24hrs 07/17/18 07/17/18 07/17/18 Range/Units 11:45 07:59 07:38 WBC (4.8-10.8) x10^3/uL RBC (4.20-5.40) 10^6/uL Hgb (12.0-16.0) g/dL Hct (37.0-47.0) % MCV (81.0-99.0) fL MCH (27.0-31.0) pg MCHC (32.0-36.0) g/dL RDW (12.0-15.0) % Plt Count (130-450) 10^3/uL MPV (7.9-10.8) fL Neut # (Auto) (1.5-6.6) 10^3/uL Lymph # (Auto) (1.5-3.5) 10^3/uL [place] # (Auto) (0.0-1.0) 10^3/uL Eos # (Auto) (0.0-0.7) 10^3/uL Baso # (Auto) (0.0-0.1) 10^3/uL Absolute Nucleated RBC x10^3/uL Nucleated RBC % /100WBC Sodium (135-145) mmol/L Potassium (3.5-5.0) mmol/L Chloride (101-111) mmol/L Carbon Dioxide (21-32) mmol/L Anion Gap (6-13) BUN (6-20) mg/dL Creatinine (0.4-1.0) mg/dL Estimated GFR (MDRD) (>89) Glucose (70-100) mg/dL POC Whole Bld Glucose 227 H 195 H (70 - 100) mg/dL Lactic Acid 2.9 H (0.5-2.2) mmol/L Calcium (8.5-10.3) mg/dL Last Dose Date Last Dose Time Vancomycin Trough (10.0-20.0) ug/mL 07/17/18 07/17/18 07/17/18 Range/Units 05:45 05:45 05:45 WBC 6.6 (4.8-10.8) x10^3/uL RBC 3.93 L (4.20-5.40) 10^6/uL Hgb 10.9 L (12.0-16.0) g/dL Hct 32.6 L (37.0-47.0) % MCV 83.0 (81.0-99.0) fL MCH 27.8 (27.0-31.0) pg MCHC 33.5 (32.0-36.0) g/dL RDW 13.1 (12.0-15.0) % Plt Count 374 (130-450) 10^3/uL MPV 7.0 L (7.9-10.8) fL Neut # (Auto) 3.5 (1.5-6.6) 10^3/uL Lymph # (Auto) 2.5 (1.5-3.5) 10^3/uL [place] # (Auto) 0.4 (0.0-1.0) 10^3/uL Eos # (Auto) 0.1 (0.0-0.7) 10^3/uL Baso # (Auto) 0.0 (0.0-0.1) 10^3/uL Absolute Nucleated RBC 0.01 x10^3/uL Nucleated RBC % 0.1 /100WBC Sodium 140 (135-145) mmol/L Potassium 3.8 (3.5-5.0) mmol/L Chloride 106 (101-111) mmol/L Carbon Dioxide 24 (21-32) mmol/L Anion Gap 10.0 (6-13) BUN 14 (6-20) mg/dL Creatinine 0.6 (0.4-1.0) mg/dL Estimated GFR (MDRD) 103 (>89) Glucose 196 H (70-100) mg/dL POC Whole Bld Glucose (70 - 100) mg/dL Lactic Acid (0.5-2.2) mmol/L Calcium 8.4 L (8.5-10.3) mg/dL Last Dose Date UNK Last Dose Time UNK Vancomycin Trough 11.2 (10.0-20.0) ug/mL 07/16/18 07/16/18 07/16/18 Range/Units 20:15 16:22 16:21 WBC (4.8-10.8) x10^3/uL RBC (4.20-5.40) 10^6/uL Hgb (12.0-16.0) g/dL Hct (37.0-47.0) % MCV (81.0-99.0) fL MCH (27.0-31.0) pg MCHC (32.0-36.0) g/dL RDW (12.0-15.0) % Plt Count (130-450) 10^3/uL MPV (7.9-10.8) fL Neut # (Auto) (1.5-6.6) 10^3/uL Lymph # (Auto) (1.5-3.5) 10^3/uL [place] # (Auto) (0.0-1.0) 10^3/uL Eos # (Auto) (0.0-0.7) 10^3/uL Baso # (Auto) (0.0-0.1) 10^3/uL Absolute Nucleated RBC x10^3/uL Nucleated RBC % /100WBC Sodium (135-145) mmol/L Potassium (3.5-5.0) mmol/L Chloride (101-111) mmol/L Carbon Dioxide (21-32) mmol/L Anion Gap (6-13) BUN (6-20) mg/dL Creatinine (0.4-1.0) mg/dL Estimated GFR (MDRD) (>89) Glucose (70-100) mg/dL POC Whole Bld Glucose 253 H 183 H (70 - 100) mg/dL Lactic Acid 2.8 H (0.5-2.2) mmol/L Calcium (8.5-10.3) mg/dL Last Dose Date Last Dose Time Vancomycin Trough (10.0-20.0) ug/mL - Other Results/Comments Other Results/Comments: right foot dressing clean dry intact. no surrounding erythema noted. visualized portion of toes with good cap refill <2sec Sepsis Event Note (H) - Evaluation Current Stage of Sepsis: Sepsis Possible source of Sepsis: positive: Skin/soft tissue - Sepsis Criteria Sepsis Criteria: WBC count greater than 10% bands, WBC count greater than 12,000 or less than 4000, Metabolic: lactate > 2 mmol/L Assessment/Plan - Problem List (1) Diabetic foot infection Impression: patient with right foot wounds. exam limited today secondary to dressing plan. will defer to wound care team and Hospitalists at this time as have not seen indication for orthopedic surgical intervention with previous exams. patient understands that may be in need of surgical intervention in future. previously discussed potential debridements and potential partial amputations. currently I would recommend letting soft tissues declare. abx as necessary. plan for MRI and potential cont home abx pending results reasonable. please re-consult or f/u in clinic as necessary. discussed with patient. questions answered. verb understanding/agreement with above.
[2018-07-17] MEDS: CARISOPRODOL 350 MG PO PRN ×2 (13:38→22:32)
[2018-07-17] MEDS: ZOLPIDEM 5 MG TABLET PO PRN (22:31)
[2018-07-18] MEDS: oxyCODONE 5 MG TABLET PO PRN ×5 (03:52→21:49)
[2018-07-18] MEDS: ACETAMINOPHEN 325 MG TABLET PO PRN ×5 (03:52→21:50)
[2018-07-18] MEDS: PIPERACILLIN/TAZOBACTAM 3.375 GM in SODIUM CHLORIDE 0.9% MINIBAG 100 ML IV SCH ×4 (03:52→22:01)
[2018-07-18] MEDS: ONDANSETRON 4 MG/2 ML VIAL IVP PRN (05:35)
[2018-07-18 05:52] LABS: BASOPHILS % (AUTO) 0.5 %; EOSINOPHILS # (AUTO) 0.2 10^3/uL (0.0-0.7); EOSINOPHILS % (AUTO) 2.2 %; HGB - HEMOGLOBIN 10.8 g/dL (12.0-16.0); LYMPHOCYTES # (AUTO) 2.3 10^3/uL (1.5-3.5); MEAN CORPUSCULAR HEMOGLOBIN 27.7 pg (27.0-31.0); MEAN CORPUSCULAR HGB CONC 33.3 g/dL (32.0-36.0); MEAN CORPUSCULAR VOLUME 83.2 fL (81.0-99.0); MEAN PLATELET VOLUME 7.2 fL (7.9-10.8); MONOCYTES # (AUTO) 0.4 10^3/uL (0.0-1.0); MONOCYTES % (AUTO) 5.3 %; NEUTROPHILS # (AUTO) 4.7 10^3/uL (1.5-6.6); PLT - PLATELET COUNT 378 10^3/uL (130-450); RED BLOOD COUNT 3.91 10^6/uL (4.20-5.40); RED CELL DISTRIBUTION WIDTH 13.2 % (12.0-15.0); WHITE BLOOD COUNT 7.6 x10^3/uL (4.8-10.8)
[2018-07-18 06:01] LABS: CALCIUM 8.5 mg/dL (8.5-10.3); CREATININE 0.7 mg/dL (0.4-1.0)
[2018-07-18] MEDS: VANCOMYCIN INJ 1 GM, VANCOMYCIN INJ 500 MG in SODIUM CHLORIDE 0.9% 500 ML IV SCH ×2 (06:08→18:14)
[2018-07-18] MEDS: clonazePAM 0.5 MG TABLET PO PRN ×3 (07:11→23:55)
[2018-07-18] MEDS: LOSARTAN 50 MG TABLET PO SCH (08:05)
[2018-07-18] MEDS: CITALOPRAM 10 MG TABLET PO SCH (08:05)
[2018-07-18] MEDS: NICOTINE 14 MG PATCH TOP SCH (08:05)
[2018-07-18] MEDS: GLIMEPIRIDE 2 MG TABLET PO SCH ×2 (08:05→16:41)
[2018-07-18] MEDS: FAMOTIDINE 20 MG TABLET PO SCH ×2 (08:05→21:49)
[2018-07-18] MEDS: SACCHAROMYCES BOULARDII 250 MG CAPSULE PO SCH ×2 (08:05→16:41)
[2018-07-18] MEDS: SODIUM CHLORIDE FLUSH 0.9% 10 ML SYRINGE IVP SCH ×2 (08:06→16:45)
[2018-07-18] MEDS: ENOXAPARIN 40 MG/0.4 ML SYRINGE SUBQ SCH (08:06)
[2018-07-18] MEDS: POLYETHYLENE GLYCOL 3350 17 GM PACKET PO SCH (08:06)
[2018-07-18] MEDS: INSULIN GLARGINE 300 UNIT/3 ML PEN SUBQ SCH (08:10)
[2018-07-18] MEDS: INSULIN ASPART 300 UNIT/3 ML PEN SUBQ SCH ×4 (08:10→21:51)
[2018-07-18] MEDS ORDERED: CALCIUM CARBONATE CHEW 500 MG TABLET PO PRN (11:41)
--- NOTE | 2018-07-18 14:14 | PROVIDER PROGRESS NOTE ---
Subjective - Prog Note Date Prog Note Date: 07/18/18 - Subjective Pt reports feeling: Worse Subjective: pt report she had more pain on her wounded foot on last night. Pt also has hx of chronic pain. but pt decline me and nurse see her wound because she only let the wound care provider to see her wound on tomorrow. Today small drainage is saw in pt's covered gauze. pt denies fever, chill, chest pain, shortness of breath. Current Medications - Current Medications Current Medications: Active Medications Acetaminophen (Tylenol) 650 mg PO Q4HR PRN PRN Reason: Pain 1 to 4 Last Admin: 07/18/18 12:39 Dose: 650 mg Alprazolam (Xanax) 1 mg PO DAILY PRN PRN Reason: Anxiety Last Admin: 07/16/18 08:24 Dose: 1 mg Calcium Carbonate/Glycine (Tums) 500 mg PO BID PRN PRN Reason: Heartburn Citalopram Hydrobromide (Celexa) 40 mg PO DAILY [facility] Last Admin: 07/18/18 08:05 Dose: 40 mg Clonazepam (Klonopin) 0.5 mg PO TID PRN PRN Reason: Anxiety Last Admin: 07/18/18 11:30 Dose: 0.5 mg Enoxaparin Sodium (Lovenox) 40 mg SUBQ DAILY [facility] Last Admin: 07/18/18 08:06 Dose: 40 mg Famotidine (Pepcid) 20 mg PO BID [facility] Last Admin: 07/18/18 08:05 Dose: 20 mg Glimepiride (Amaryl) 2 mg PO QDDINNER [facility] Last Admin: 07/17/18 16:51 Dose: 2 mg Glimepiride (Amaryl) 4 mg PO QDBREAKFAST [facility] Last Admin: 07/18/18 08:05 Dose: 4 mg Piperacillin Sod/Tazobactam (Sod 3.375 gm/ Sodium Chloride) 100 mls @ 200 mls/hr IV Q6H [facility] Last Infusion: 07/18/18 11:10 Dose: Infused Vancomycin HCl 1 gm/Vancomycin HCl 500 mg/ Sodium Chloride 500 mls @ 250 mls/hr IV Q12H [facility] Last Infusion: 07/18/18 08:10 Dose: Infused Sodium Chloride (Normal Saline 0.9%) 500 mls @ 0 mls/hr IV Q24H PRN PRN Reason: TKO RATE Last Admin: 07/17/18 11:30 Dose: 10 mls/hr Insulin Aspart (Novolog) 2 - 10 unit SUBQ 0800,1200,1700,2100 [facility]; Protocol Last Admin: 07/18/18 11:30 Dose: 4 unit Insulin Glargine (Lantus Solostar) 10 unit SUBQ QDBREAKFAST [facility] Last Admin: 07/18/18 08:10 Dose: 10 unit Losartan Potassium (Cozaar) 50 mg PO DAILY [facility] Last Admin: 07/18/18 08:05 Dose: 50 mg Ondansetron HCl (Zofran Inj) 4 mg IVP Q6HR PRN PRN Reason: Nausea / Vomiting Last Admin: 07/18/18 05:35 Dose: 4 mg Oxycodone HCl (Roxicodone) 10 mg PO Q4HR PRN PRN Reason: Pain 5 to 7 Last Admin: 07/18/18 12:38 Dose: 10 mg Carisoprodol [Soma] (350 Mg Tab) 1 each PO TID PRN PRN Reason: PAIN Last Admin: 07/17/18 22:32 Dose: 1 each Polyethylene Glycol (Miralax) 17 gm PO DAILY [facility] Last Admin: 07/18/18 08:06 Dose: Not Given Saccharomyces Boulardii (Florastor) 250 mg PO BIDWM [facility] Last Admin: 07/18/18 08:05 Dose: 250 mg Sodium Chloride (Normal Saline Flush 0.9%) 10 ml IVP PRN PRN PRN Reason: NEEDED PER PROVIDER ORDERS Sodium Chloride (Normal Saline Flush 0.9%) 10 ml IVP 0100,0900,1700 [facility] Last Admin: 07/18/18 08:06 Dose: Not Given Zolpidem Tartrate (Ambien) 5 mg PO QPM PRN PRN Reason: Insomnia Last Admin: 07/17/18 22:31 Dose: 5 mg Alprazolam [Xanax] 1 mg PO DAILY PRN 02/16/13 Citalopram [CeleXA] 40 mg PO DAILY 02/16/13 Losartan [Cozaar] 50 mg PO DAILY 02/16/13 metFORMIN [Glucophage] 1,000 mg PO BID 02/16/13 Carisoprodol [Soma] 350 mg PO TID PRN 06/30/18 Glimepiride 2 mg PO DAILY 06/30/18 Oxycodone HCl 10 mg PO .Q6-8H PRN 06/30/18 clonazePAM [Clonazepam] 0.5 - 1 mg PO TID PRN 06/30/18 Glimepiride [Amaryl] 1 mg PO QPM 07/16/18 Objective - Vital Signs/Intake & Output Reviewed Vital Signs: Yes Vital Signs: Vital Signs x48h Temp Pulse Resp BP Pulse Ox 07/18/18 13:30 36.6 C 73 20 162/77 H 98 07/18/18 07:43 36.3 C L 63 18 168/78 H 98 Intake & Output: Intake & Output 07/15/18 07/16/18 07/17/18 07/18/18 23:59 23:59 23:59 23:59 Intake Total 3852.50 4452.500 2910 1250 Balance 3852.50 4452.500 2910 1250 - Objective General Appearance: positive: No acute distress, Alert. negative: Lethargic Eyes Bilateral: positive: Normal inspection, PERRL, No lid inflammation, Conjunctivae nml ENT: positive: ENT inspection nml, Pharynx nml, No signs of dehydration. negative: Purulent nasal drainage, Pharyngeal erythema, Oral lesions Neck: positive: Nml inspection, Thyroid nml, No JVD, Trachea midline. negative: Thyromegaly, Lymphadenopathy (R), Lymphadenopathy (L), Stiff neck, Swe lling/bruising, Tracheal deviation Respiratory: positive: Chest non-tender, No respiratory distress, Breath sounds nml. negative: Wheezes, Rales, Rhonchi Cardiovascular: positive: Regular rate & rhythm, No murmur, No gallop. negative: Irregularly irregular, Extrasystoles, Tachycardia, Bradycardia, JVD present, Systolic murmur, Diastolic murmur Peripheral Pulses: 2+ Radial (R), 2+ Radial (L), 2+ Dorsalis pedis (R), 2+ Do rsalis pedis (L) Abdomen: positive: Non-tender, No organomegaly, Nml bowel sounds, No distention. negative: Tenderness, Guarding, Rebound Back: positive: Nml inspection. negative: CVA tenderness (R), CVA tenderness (L) Skin: positive: Warm, Dry. negative: Cyanosis, Diaphoresis, Pallor Extremities: negative: Calf tenderness, Joint swelling, Chris's sign/cords Neurologic/Psychiatric: positive: Oriented x3, Sensation nml, Mood/affect nml. negative: Weakness, Sensory loss, Facial droop, Slurred/abnml speech, Depressed mood/affect - Lab Results Fish Bones: 07/18/18 05:15 07/18/18 05:15 Other Labs: Lab Results x24hrs 07/18/18 07/18/18 07/18/18 Range/Units 11:06 09:27 07:33 WBC (4.8-10.8) x10^3/uL RBC (4.20-5.40) 10^6/uL Hgb (12.0-16.0) g/dL Hct (37.0-47.0) % MCV (81.0-99.0) fL MCH (27.0-31.0) pg MCHC (32.0-36.0) g/dL RDW (12.0-15.0) % Plt Count (130-450) 10^3/uL MPV (7.9-10.8) fL Neut # (Auto) (1.5-6.6) 10^3/uL Lymph # (Auto) (1.5-3.5) 10^3/uL [place] # (Auto) (0.0-1.0) 10^3/uL Eos # (Auto) (0.0-0.7) 10^3/uL Baso # (Auto) (0.0-0.1) 10^3/uL Absolute Nucleated RBC x10^3/uL Nucleated RBC % /100WBC Sodium (135-145) mmol/L Potassium (3.5-5.0) mmol/L Chloride (101-111) mmol/L Carbon Dioxide (21-32) mmol/L Anion Gap (6-13) BUN (6-20) mg/dL Creatinine (0.4-1.0) mg/dL Estimated GFR (MDRD) (>89) Glucose (70-100) mg/dL POC Whole Bld Glucose 204 H 181 H (70 - 100) mg/dL Lactic Acid 3.3 H* (0.5-2.2) mmol/L Calcium (8.5-10.3) mg/dL 07/18/18 07/18/18 07/17/18 Range/Units 05:15 05:15 22:08 WBC 7.6 (4.8-10.8) x10^3/uL RBC 3.91 L (4.20-5.40) 10^6/uL Hgb 10.8 L (12.0-16.0) g/dL Hct 32.5 L (37.0-47.0) % MCV 83.2 (81.0-99.0) fL MCH 27.7 (27.0-31.0) pg MCHC 33.3 (32.0-36.0) g/dL RDW 13.2 (12.0-15.0) % Plt Count 378 (130-450) 10^3/uL MPV 7.2 L (7.9-10.8) fL Neut # (Auto) 4.7 (1.5-6.6) 10^3/uL Lymph # (Auto) 2.3 (1.5-3.5) 10^3/uL [place] # (Auto) 0.4 (0.0-1.0) 10^3/uL Eos # (Auto) 0.2 (0.0-0.7) 10^3/uL Baso # (Auto) 0.0 (0.0-0.1) 10^3/uL Absolute Nucleated RBC 0.00 x10^3/uL Nucleated RBC % 0.0 /100WBC Sodium 139 (135-145) mmol/L Potassium 3.6 (3.5-5.0) mmol/L Chloride 102 (101-111) mmol/L Carbon Dioxide 25 (21-32) mmol/L Anion Gap 12.0 (6-13) BUN 13 (6-20) mg/dL Creatinine 0.7 (0.4-1.0) mg/dL Estimated GFR (MDRD) 86 L (>89) Glucose 199 H (70-100) mg/dL POC Whole Bld Glucose 260 H (70 - 100) mg/dL Lactic Acid (0.5-2.2) mmol/L Calcium 8.5 (8.5-10.3) mg/dL 07/17/18 07/17/18 Range/Units 20:34 16:31 WBC (4.8-10.8) x10^3/uL RBC (4.20-5.40) 10^6/uL Hgb (12.0-16.0) g/dL Hct (37.0-47.0) % MCV (81.0-99.0) fL MCH (27.0-31.0) pg MCHC (32.0-36.0) g/dL RDW (12.0-15.0) % Plt Count (130-450) 10^3/uL MPV (7.9-10.8) fL Neut # (Auto) (1.5-6.6) 10^3/uL Lymph # (Auto) (1.5-3.5) 10^3/uL [place] # (Auto) (0.0-1.0) 10^3/uL Eos # (Auto) (0.0-0.7) 10^3/uL Baso # (Auto) (0.0-0.1) 10^3/uL Absolute Nucleated RBC x10^3/uL Nucleated RBC % /100WBC Sodium (135-145) mmol/L Potassium (3.5-5.0) mmol/L Chloride (101-111) mmol/L Carbon Dioxide (21-32) mmol/L Anion Gap (6-13) BUN (6-20) mg/dL Creatinine (0.4-1.0) mg/dL Estimated GFR (MDRD) (>89) Glucose (70-100) mg/dL POC Whole Bld Glucose 253 H 143 H (70 - 100) mg/dL Lactic Acid (0.5-2.2) mmol/L Calcium (8.5-10.3) mg/dL ABX Reporting Has patient been on IV antibiotics over the past 48 hours?: Yes Sepsis Event Note (H) - Evaluation Current Stage of Sepsis: Sepsis Possible source of Sepsis: positive: Skin/soft tissue - Sepsis Criteria Sepsis Criteria: WBC count greater than 10% bands, WBC count greater than 12,000 or less than 4000, Metabolic: lactate > 2 mmol/L Assessment/Plan - Problem List (1) Diabetic foot infection Impression: 4/7 pt complain more pain on last night on her wound foot, pt hx of chronic pain. but covered gauze show small drainage. pt decline her wound to be seen by me and nurse, until her wound care provider see her continue wound care, she will come tomorrow to see pt continue antibiotics, pain control. pt seems pt's pain is good controlled on today plan MRI on tomorrow to r/o esteomyelitis 07/17 wound care provider cover the wound, she will see pt on Thursday. pt report sh e feel better. No fever. chill. No pain reported. continue antibiotics continue lab and vital monitor may consider MRI on Thursday, then D/C on PO antibiotics / pt report she feel better, swelling is better. no drainage. WBC is down to normal continue antibiotics continue Wound care, followup wound consult The wound seems in the process of healing, no erythema, no drainage, mild swelling. There is a black necrotic area located lateral below the fifth toe. pt had elevated WBC, but no fever, chill. consult with orthopedics, followup IV antibiotics with zosyn, and vancomycin IVF of NS lab and vital monitor (2) Lactic acidosis Conclusion/Plan: 07/18 lactic acid 3.3. pt has hx of high lactic acid level, believe it was caused by pt's Metformin discussed with pt about d/c Metformin, and instead of increase dosage of her DM meds amaryl. pt agree the plan to increase dosage of Amaryl. 07/17 reduced to 2.9, continue lab monitor. pt is d/c Metformin now continue antibiotics 07/16 Lactic acid is reduced to 3.8 from 5.2. advise pt d/c Metformin, explain the reason why d/c Metformin, and effects and side effect of Metformin pt had elevated lactic acid in previous admission. pt was advised to d/c her home meds Metformin which can cause metabolic lactic acidosis, but pt continue to use Metformin hold Metformin educated and advised pt discontinue to use Metformin, instead of use other DM agents or increase other agent dosage. Advised pt discuss with her PCP to manage her chronic DM continue lab monitor treat underline infection and hyperglycemia IVF of NS (3) HTN (hypertension) Conclusion/Plan: stable, reconcile home BP meds (4) Type 2 diabetes mellitus with complication Conclusion/Plan: 07/18 discussed with pt about d/c Metformin, and instead of increase dosage of her DM meds amaryl. pt agree the plan to increase dosage of Amaryl. followup PCP to manage her chronic DM2 4/6 increase pt's home Aramly dosage to 2mg on QPM, and 4mg on QBR continue slide scale, ACHS to monitor glucose level 4/5 add Lantus on morning, continue slide scale pt had glucose 285 in the admission. will start slide scale for insulin, ACHS for glucose check, hypoglycemia protocol (5) Chronic pain syndrome Conclusion/Plan: stable, will reconcile her home meds (6) Generalized anxiety disorder Conclusion/Plan: stable, will reconcile her home meds (7) Medical non-compliance Conclusion/Plan: pt did not followup her last hospitalization d/c instruction, continue usage of Metformin. her Lactic acid serum level is still significant high advise and consult with pt for medical compliance. (3) HTN (hypertension) Qualifiers: Hypertension type: essential hypertension Qualified Code(s): I10 - Essential (primary) hypertension
[2018-07-18] MEDS: ALPRAZolam 0.25 MG TABLET PO PRN (16:41)
[2018-07-18] MEDS: CARISOPRODOL 350 MG PO PRN (23:55)
[2018-07-18] MEDS: ZOLPIDEM 5 MG TABLET PO PRN (23:55)
[2018-07-19] MEDS: SODIUM CHLORIDE FLUSH 0.9% 10 ML SYRINGE IVP SCH ×3 (01:52→17:54)
[2018-07-19] MEDS: PIPERACILLIN/TAZOBACTAM 3.375 GM in SODIUM CHLORIDE 0.9% MINIBAG 100 ML IV SCH ×4 (03:35→22:27)
[2018-07-19 05:49] LABS: BASOPHILS # (AUTO) 0.1 10^3/uL (0.0-0.1); BASOPHILS % (AUTO) 0.8 %; EOSINOPHILS # (AUTO) 0.2 10^3/uL (0.0-0.7); EOSINOPHILS % (AUTO) 1.9 %; HGB - HEMOGLOBIN 11.6 g/dL (12.0-16.0); LYMPHOCYTES # (AUTO) 2.1 10^3/uL (1.5-3.5); LYMPHOCYTES % (AUTO) 24.8 %; MEAN CORPUSCULAR HEMOGLOBIN 27.7 pg (27.0-31.0); MEAN CORPUSCULAR HGB CONC 33.4 g/dL (32.0-36.0); MEAN CORPUSCULAR VOLUME 83.1 fL (81.0-99.0); MONOCYTES # (AUTO) 0.5 10^3/uL (0.0-1.0); MONOCYTES % (AUTO) 5.2 %; NEUTROPHILS # (AUTO) 5.8 10^3/uL (1.5-6.6); NEUTROPHILS % (AUTO) 67.3 %; PLT - PLATELET COUNT 459 10^3/uL (130-450); RED CELL DISTRIBUTION WIDTH 13.2 % (12.0-15.0); WHITE BLOOD COUNT 8.6 x10^3/uL (4.8-10.8)
[2018-07-19 06:08] LABS: CALCIUM 8.9 mg/dL (8.5-10.3); CREATININE 0.8 mg/dL (0.4-1.0)
[2018-07-19] MEDS: ACETAMINOPHEN 325 MG TABLET PO PRN ×2 (06:14→18:53)
[2018-07-19] MEDS: ONDANSETRON 4 MG/2 ML VIAL IVP PRN (06:16)
[2018-07-19] MEDS: VANCOMYCIN INJ 1 GM, VANCOMYCIN INJ 500 MG in SODIUM CHLORIDE 0.9% 500 ML IV SCH ×2 (06:23→18:39)
[2018-07-19 06:29] LABS: CRP - C-REACTIVE PROTEIN 2.6 mg/dL (0-1.0)
[2018-07-19] MEDS: oxyCODONE 5 MG TABLET PO PRN ×3 (09:05→18:53)
[2018-07-19] MEDS: clonazePAM 0.5 MG TABLET PO PRN ×2 (09:05→18:54)
[2018-07-19] MEDS: LOSARTAN 50 MG TABLET PO SCH (09:05)
[2018-07-19] MEDS: FAMOTIDINE 20 MG TABLET PO SCH ×2 (09:05→21:45)
[2018-07-19] MEDS: SACCHAROMYCES BOULARDII 250 MG CAPSULE PO SCH ×2 (09:06→17:52)
[2018-07-19] MEDS: GLIMEPIRIDE 2 MG TABLET PO SCH ×2 (09:06→17:52)
[2018-07-19] MEDS: CITALOPRAM 10 MG TABLET PO SCH (09:06)
[2018-07-19] MEDS: ENOXAPARIN 40 MG/0.4 ML SYRINGE SUBQ SCH (09:06)
[2018-07-19] MEDS: POLYETHYLENE GLYCOL 3350 17 GM PACKET PO SCH (09:07)
[2018-07-19] MEDS: INSULIN ASPART 300 UNIT/3 ML PEN SUBQ SCH ×4 (09:09→21:45)
[2018-07-19] MEDS: INSULIN GLARGINE 300 UNIT/3 ML PEN SUBQ SCH (09:11)
--- NOTE | 2018-07-19 11:33 | PROVIDER PROGRESS NOTE ---
Subjective - Prog Note Date Prog Note Date: 07/19/18 - Subjective Pt reports feeling: Improved Subjective: pt report foot pain is better. wound site still has drainage. Wound care provider will see pt on this afternoon for Wound dressing change. pt wish to have MRI done in the hospital. Otherwise pt denies fever, chill, chest pain, SOB. pt refused to have surgery if her foot has oestomyelitis, she prefer continuing to have antibiotics Current Medications - Current Medications Current Medications: Active Medications Acetaminophen (Tylenol) 650 mg PO Q4HR PRN PRN Reason: Pain 1 to 4 Last Admin: 07/19/18 06:14 Dose: 650 mg Alprazolam (Xanax) 1 mg PO DAILY PRN PRN Reason: Anxiety Last Admin: 07/18/18 16:41 Dose: 1 mg Calcium Carbonate/Glycine (Tums) 500 mg PO BID PRN PRN Reason: Heartburn Citalopram Hydrobromide (Celexa) 40 mg PO DAILY [facility] Last Admin: 07/19/18 09:06 Dose: 40 mg Clonazepam (Klonopin) 0.5 mg PO TID PRN PRN Reason: Anxiety Last Admin: 07/19/18 09:05 Dose: 0.5 mg Enoxaparin Sodium (Lovenox) 40 mg SUBQ DAILY [facility] Last Admin: 07/19/18 09:06 Dose: 40 mg Famotidine (Pepcid) 20 mg PO BID [facility] Last Admin: 07/19/18 09:05 Dose: 20 mg Glimepiride (Amaryl) 2 mg PO QDDINNER [facility] Last Admin: 07/18/18 16:41 Dose: 2 mg Glimepiride (Amaryl) 4 mg PO QDBREAKFAST [facility] Last Admin: 07/19/18 09:06 Dose: 4 mg Piperacillin Sod/Tazobactam (Sod 3.375 gm/ Sodium Chloride) 100 mls @ 200 mls/hr IV Q6H [facility] Last Infusion: 07/19/18 12:45 Dose: Infused Vancomycin HCl 1 gm/Vancomycin HCl 500 mg/ Sodium Chloride 500 mls @ 250 mls/hr IV Q12H [facility] Last Infusion: 07/19/18 10:27 Dose: Infused Sodium Chloride (Normal Saline 0.9%) 500 mls @ 0 mls/hr IV Q24H PRN PRN Reason: TKO RATE Last Admin: 07/17/18 11:30 Dose: 10 mls/hr Insulin Aspart (Novolog) 2 - 10 unit SUBQ 0800,1200,1700,2100 [facility]; Protocol Last Admin: 07/19/18 11:47 Dose: 4 unit Insulin Glargine (Lantus Solostar) 10 unit SUBQ QDBREAKFAST [facility] Last Admin: 07/19/18 09:11 Dose: 10 unit Losartan Potassium (Cozaar) 50 mg PO DAILY [facility] Last Admin: 07/19/18 09:05 Dose: 50 mg Ondansetron HCl (Zofran Inj) 4 mg IVP Q6HR PRN PRN Reason: Nausea / Vomiting Last Admin: 07/19/18 06:16 Dose: 4 mg Oxycodone HCl (Roxicodone) 10 mg PO Q4HR PRN PRN Reason: Pain 5 to 7 Last Admin: 07/19/18 09:05 Dose: 10 mg Carisoprodol [Soma] (350 Mg Tab) 1 each PO TID PRN PRN Reason: PAIN Last Admin: 07/18/18 23:55 Dose: 1 each Polyethylene Glycol (Miralax) 17 gm PO DAILY [facility] Last Admin: 07/19/18 09:07 Dose: Not Given Saccharomyces Boulardii (Florastor) 250 mg PO BIDWM [facility] Last Admin: 07/19/18 09:06 Dose: 250 mg Sodium Chloride (Normal Saline Flush 0.9%) 10 ml IVP PRN PRN PRN Reason: NEEDED PER PROVIDER ORDERS Sodium Chloride (Normal Saline Flush 0.9%) 10 ml IVP 0100,0900,1700 [facility] Last Admin: 07/19/18 09:07 Dose: Not Given Zolpidem Tartrate (Ambien) 5 mg PO QPM PRN PRN Reason: Insomnia Last Admin: 07/18/18 23:55 Dose: 5 mg Alprazolam [Xanax] 1 mg PO DAILY PRN 02/16/13 Citalopram [CeleXA] 40 mg PO DAILY 02/16/13 Losartan [Cozaar] 50 mg PO DAILY 02/16/13 metFORMIN [Glucophage] 1,000 mg PO BID 02/16/13 Carisoprodol [Soma] 350 mg PO TID PRN 06/30/18 Glimepiride 2 mg PO DAILY 06/30/18 Oxycodone HCl 10 mg PO .Q6-8H PRN 06/30/18 clonazePAM [Clonazepam] 0.5 - 1 mg PO TID PRN 06/30/18 Glimepiride [Amaryl] 1 mg PO QPM 07/16/18 Objective - Vital Signs/Intake & Output Reviewed Vital Signs: Yes Vital Signs: Vital Signs x48h Temp Pulse Resp BP Pulse Ox 07/19/18 11:11 36.6 C 61 18 136/63 H 96 07/19/18 07:20 36.6 C 62 18 132/61 H 95 07/19/18 05:00 36.7 C 81 18 150/69 H 95 Intake & Output: Intake & Output 07/16/18 07/17/18 07/18/18 07/19/18 23:59 23:59 23:59 23:59 Intake Total 4452.500 2910 2750 1040 Balance 4452.500 2910 2750 1040 - Objective General Appearance: positive: No acute distress, Alert. negative: Lethargic Eyes Bilateral: positive: Normal inspection, PERRL, No lid inflammation, Conjunctivae nml ENT: positive: ENT inspection nml, Pharynx nml, No signs of dehydration. negative: Purulent nasal drainage, Pharyngeal erythema, Oral lesions Neck: positive: Nml inspection, Thyroid nml, No JVD. negative: Trachea midline, Thyromegaly, Lymphadenopathy (R), Lymphadenopathy (L), Stiff neck, Swelling/bruising, Tracheal deviation Respiratory: positive: Chest non-tender, No respiratory distress, Breath sounds nml. negative: Wheezes, Rales, Rhonchi Cardiovascular: positive: Regular rate & rhythm, No murmur, No gallop. negative: Irregularly irregular, Extrasystoles, Tachycardia, Bradycardia, Systolic murmur, Diastolic murmur Peripheral Pulses: 2+ Radial (R), 2+ Radial (L), 2+ Dorsalis pedis (R), 2+ Dorsalis pedis (L) Abdomen: positive: Non-tender, No organomegaly, Nml bowel sounds, No distention. negative: Tenderness, Guarding, Rebound Back: positive: Nml inspection. negative: CVA tenderness (R), CVA tenderness (L) Skin: positive: Warm, Dry. negative: Cyanosis, Diaphoresis, Pallor Extremities: negative: Calf tenderness, Joint swelling, Chris's sign/cords Neurologic/Psychiatric: positive: Oriented x3, Sensation nml, Mood/affect nml. negative: Weakness, Sensory loss, Facial droop, Slurred/abnml speech, Depressed mood/affect - Lab Results Fish Bones: 07/19/18 05:29 07/19/18 05:29 Other Labs: Lab Results x24hrs 07/19/18 07/19/18 07/19/18 Range/Units 11:06 07:22 05:29 WBC (4.8-10.8) x10^3/uL RBC (4.20-5.40) 10^6/uL Hgb (12.0-16.0) g/dL Hct (37.0-47.0) % MCV (81.0-99.0) fL MCH (27.0-31.0) pg MCHC (32.0-36.0) g/dL RDW (12.0-15.0) % Plt Count (130-450) 10^3/uL MPV (7.9-10.8) fL Neut # (Auto) (1.5-6.6) 10^3/uL Lymph # (Auto) (1.5-3.5) 10^3/uL [place] # (Auto) (0.0-1.0) 10^3/uL Eos # (Auto) (0.0-0.7) 10^3/uL Baso # (Auto) (0.0-0.1) 10^3/uL Absolute Nucleated RBC x10^3/uL Nucleated RBC % /100WBC ESR 56 H (0-30) mm/Hr Sodium (135-145) mmol/L Potassium (3.5-5.0) mmol/L Chloride (101-111) mmol/L Carbon Dioxide (21-32) mmol/L Anion Gap (6-13) BUN (6-20) mg/dL Creatinine (0.4-1.0) mg/dL Estimated GFR (MDRD) (>89) Glucose (70-100) mg/dL POC Whole Bld Glucose 223 H 221 H (70 - 100) mg/dL Calcium (8.5-10.3) mg/dL C-Reactive Protein (0-1.0) mg/dL 07/19/18 07/19/18 07/18/18 Range/Units 05:29 05:29 20:49 WBC 8.6 (4.8-10.8) x10^3/uL RBC 4.20 (4.20-5.40) 10^6/uL Hgb 11.6 L (12.0-16.0) g/dL Hct 34.9 L (37.0-47.0) % MCV 83.1 (81.0-99.0) fL MCH 27.7 (27.0-31.0) pg MCHC 33.4 (32.0-36.0) g/dL RDW 13.2 (12.0-15.0) % Plt Count 459 H (130-450) 10^3/uL MPV 7.0 L (7.9-10.8) fL Neut # (Auto) 5.8 (1.5-6.6) 10^3/uL Lymph # (Auto) 2.1 (1.5-3.5) 10^3/uL [place] # (Auto) 0.5 (0.0-1.0) 10^3/uL Eos # (Auto) 0.2 (0.0-0.7) 10^3/uL Baso # (Auto) 0.1 (0.0-0.1) 10^3/uL Absolute Nucleated RBC 0.00 x10^3/uL Nucleated RBC % 0.0 /100WBC ESR (0-30) mm/Hr Sodium 140 (135-145) mmol/L Potassium 4.0 (3.5-5.0) mmol/L Chloride 100 L (101-111) mmol/L Carbon Dioxide 28 (21-32) mmol/L Anion Gap 12.0 (6-13) BUN 11 (6-20) mg/dL Creatinine 0.8 (0.4-1.0) mg/dL Estimated GFR (MDRD) 74 L (>89) Glucose 182 H (70-100) mg/dL POC Whole Bld Glucose 274 H (70 - 100) mg/dL Calcium 8.9 (8.5-10.3) mg/dL C-Reactive Protein 2.6 H (0-1.0) mg/dL 07/18/18 Range/Units 16:19 WBC (4.8-10.8) x10^3/uL RBC (4.20-5.40) 10^6/uL Hgb (12.0-16.0) g/dL Hct (37.0-47.0) % MCV (81.0-99.0) fL MCH (27.0-31.0) pg MCHC (32.0-36.0) g/dL RDW (12.0-15.0) % Plt Count (130-450) 10^3/uL MPV (7.9-10.8) fL Neut # (Auto) (1.5-6.6) 10^3/uL Lymph # (Auto) (1.5-3.5) 10^3/uL [place] # (Auto) (0.0-1.0) 10^3/uL Eos # (Auto) (0.0-0.7) 10^3/uL Baso # (Auto) (0.0-0.1) 10^3/uL Absolute Nucleated RBC x10^3/uL Nucleated RBC % /100WBC ESR (0-30) mm/Hr Sodium (135-145) mmol/L Potassium (3.5-5.0) mmol/L Chloride (101-111) mmol/L Carbon Dioxide (21-32) mmol/L Anion Gap (6-13) BUN (6-20) mg/dL Creatinine (0.4-1.0) mg/dL Estimated GFR (MDRD) (>89) Glucose (70-100) mg/dL POC Whole Bld Glucose 149 H (70 - 100) mg/dL Calcium (8.5-10.3) mg/dL C-Reactive Protein (0-1.0) mg/dL ABX Reporting Has patient been on IV antibiotics over the past 48 hours?: Yes Sepsis Event Note (H) - Evaluation Current Stage of Sepsis: Sepsis Possible source of Sepsis: positive: Skin/soft tissue - Sepsis Criteria Sepsis Criteria: WBC count greater than 10% bands, WBC count greater than 12,000 or less than 4000, Metabolic: lactate > 2 mmol/L Assessment/Plan - Problem List (1) Diabetic foot infection Impression: pt prefer wound provider to have dressing change for her. I will be with wound care provider to see pt's wound. drainage is presenting at pt's wound pt wish to have MRI done at hospital. hospital has MRI opened today. order MRI for pt, will followup continue antibiotics rise the foot continue lab and vital monitor 07/18 pt complain more pain on last night on her wound foot, pt hx of chronic pain. but covered gauze show small drainage. pt decline her wound to be seen by me and nurse, until her wound care provider see her continue wound care, she will come tomorrow to see pt continue antibiotics, pain control. pt seems pt's pain is good controlled on today plan MRI on tomorrow to r/o esteomyelitis 07/17 wound care provider cover the wound, she will see pt on Thursday. pt report she feel better. No fever. chill. No pain reported. continue antibiotics continue lab and vital monitor may consider MRI on Thursday, then D/C on PO antibiotics / pt report she feel better, swelling is better. no drainage. WBC is down to normal continue antibiotics continue Wound care, followup wound consult The wound seems in the process of healing, no erythema, no drainage, mild swelling. There is a black necrotic area located lateral below the fifth toe. pt had elevated WBC, but no fever, chill. consult with orthopedics, followup IV antibiotics with zosyn, and vancomycin IVF of NS lab and vital monitor (2) Lactic acidosis Conclusion/Plan: stable, discussed with pt as below 07/18 lactic acid 3.3. pt has hx of high lactic acid level, believe it was caused by pt's Metformin discussed with pt about d/c Metformin, and instead of increase dosage of her DM meds amaryl. pt agree the plan to increase dosage of Amaryl. 4/6 reduced to 2.9, continue lab monitor. pt is d/c Metformin now continue antibiotics 07/16 Lactic acid is reduced to 3.8 from 5.2. advise pt d/c Metformin, explain the reason why d/c Metformin, and effects and side effect of Metformin pt had elevated lactic acid in previous admission. pt was advised to d/c her home meds Metformin which can cause metabolic lactic acidosis, but pt continue to use Metformin hold Metformin educated and advised pt discontinue to use Metformin, instead of use other DM agents or increase other agent dosage. Advised pt discuss with her PCP to manage her chronic DM continue lab monitor treat underline infection and hyperglycemia IVF of NS (3) HTN (hypertension) Conclusion/Plan: stable, reconcile home BP meds (4) Type 2 diabetes mellitus with complication Conclusion/Plan: 07/18 discussed with pt about d/c Metformin, and instead of increase dosage of her DM meds amaryl. pt agree the plan to increase dosage of Amaryl. followup PCP to manage her chronic DM2 07/17 increase pt's home Aramly dosage to 2mg on QPM, and 4mg on QBR continue slide scale, ACHS to monitor glucose level 07/16 add Lantus on morning, continue slide scale pt had glucose 285 in the admission. will start slide scale for insulin, ACHS for glucose check, hypoglycemia protocol (5) Chronic pain syndrome Conclusion/Plan: stable, will reconcile her home meds (6) Generalized anxiety disorder Conclusion/Plan: stable, will reconcile her home meds (7) Medical non-compliance Conclusion/Plan: pt did not followup her last hospitalization d/c instruction, continue usage of Metformin. her Lactic acid serum level is still significant high advise and consult with pt for medical compliance. (3) HTN (hypertension) Qualifiers: Hypertension type: essential hypertension Qualified Code(s): I10 - Essential (primary) hypertension
[2018-07-19] MEDS: ALPRAZolam 0.25 MG TABLET PO PRN (14:43)
[2018-07-19] MEDS ORDERED: GADOBUTROL 10 MMOL/10 ML VIAL ONE (16:56)
[2018-07-19] MEDS ORDERED: GADOBUTROL 10 MMOL/10 ML VIAL IVP ONE (17:13)
--- NOTE | 2018-07-19 17:47 | MRI Report ---
Reason: diebetes foot infection, osteomyelitis Procedure Date: 07/19/2018 Accession Number: [id number] / [id number] Procedure: MRI - Foot RT W/WO CPT Code: FULL RESULT: EXAM: RIGHT FOREFOOT MRI WITHOUT AND WITH CONTRAST EXAM DATE: 07/19/2018 05:33 PM. CLINICAL HISTORY: Diabetes foot infection, osteomyelitis. COMPARISON: None. TECHNIQUE: Multiplanar, multisequence T1-weighted and fluid-sensitive sequences of the forefoot before and after administration of intravenous contrast. IV contrast: 8 mL Gadavist given IV, no reaction. Other: None. FINDINGS: Bones: The proximal and distal fifth phalanx and the middle fourth phalanx show a low signal on T1, high signal on T2 with intense enhancement. First, second, and third toes are unremarkable. No other bony abnormalities. Joints: No subluxations. No effusions. The abmqic-whgfcsqa-qgzbesckdl complex is unremarkable. The visualized plantar plates are unremarkable. Articular Cartilage: Unremarkable. Ligaments: The visualized collateral ligaments are intact. Tendons: The flexor and extensor tendons are unremarkable. Musculature: Extensive fatty atrophy in the intrinsic muscles of the forefoot. Other: Subcutaneous edema and swelling is seen primarily in the dorsal and lateral aspect of the foot. No evidence for drainable fluid collections or abscesses. Some skin irregularity is also seen in this region, probably some superficial ulcerations. IMPRESSION: 1. MRI features indicate osteomyelitis as seen in the fifth proximal distal phalanx and in the middle fourth phalanx. 2. Some surrounding cellulitis without abscess is seen in the distal forefoot laterally. 3. Extensive fatty replacement of the intrinsic musculature of the forefoot. [facility] MUSCULOSKELETAL RADIOLOGY SECTION
[2018-07-19] MEDS: MULTIVITAMIN W/MINERALS TABLET PO SCH (17:52)
[2018-07-19] MEDS: CARISOPRODOL 350 MG PO PRN (21:45)
[2018-07-19] MEDS: ZOLPIDEM 5 MG TABLET PO PRN (21:45)
[2018-07-19] MEDS: SODIUM CHLORIDE 0.9% 500 ML IV PRN (22:27)
[2018-07-20] MEDS: SODIUM CHLORIDE FLUSH 0.9% 10 ML SYRINGE IVP SCH ×3 (04:18→16:55)
[2018-07-20] MEDS: PIPERACILLIN/TAZOBACTAM 3.375 GM in SODIUM CHLORIDE 0.9% MINIBAG 100 ML IV SCH ×2 (04:18→09:57)
[2018-07-20 05:47] LABS: BASOPHILS % (AUTO) 0.6 %; EOSINOPHILS # (AUTO) 0.2 10^3/uL (0.0-0.7); EOSINOPHILS % (AUTO) 2.5 %; HGB - HEMOGLOBIN 11.3 g/dL (12.0-16.0); LYMPHOCYTES # (AUTO) 2.4 10^3/uL (1.5-3.5); LYMPHOCYTES % (AUTO) 36.9 %; MEAN CORPUSCULAR HGB CONC 33.4 g/dL (32.0-36.0); MEAN CORPUSCULAR VOLUME 83.8 fL (81.0-99.0); MEAN PLATELET VOLUME 6.9 fL (7.9-10.8); MONOCYTES # (AUTO) 0.4 10^3/uL (0.0-1.0); MONOCYTES % (AUTO) 5.9 %; NEUTROPHILS # (AUTO) 3.6 10^3/uL (1.5-6.6); NEUTROPHILS % (AUTO) 54.1 %; PLT - PLATELET COUNT 410 10^3/uL (130-450); RED BLOOD COUNT 4.04 10^6/uL (4.20-5.40); RED CELL DISTRIBUTION WIDTH 13.1 % (12.0-15.0); WHITE BLOOD COUNT 6.6 x10^3/uL (4.8-10.8)
[2018-07-20 05:53] LABS: CALCIUM 8.7 mg/dL (8.5-10.3); CREATININE 0.5 mg/dL (0.4-1.0)
[2018-07-20] MEDS: VANCOMYCIN INJ 1 GM, VANCOMYCIN INJ 500 MG in SODIUM CHLORIDE 0.9% 500 ML IV SCH (06:11)
[2018-07-20] MEDS: GLIMEPIRIDE 2 MG TABLET PO SCH ×2 (08:01→16:55)
[2018-07-20] MEDS: FAMOTIDINE 20 MG TABLET PO SCH (08:02)
[2018-07-20] MEDS: LOSARTAN 50 MG TABLET PO SCH (08:02)
[2018-07-20] MEDS: ENOXAPARIN 40 MG/0.4 ML SYRINGE SUBQ SCH (08:02)
[2018-07-20] MEDS: MULTIVITAMIN W/MINERALS TABLET PO SCH (08:02)
[2018-07-20] MEDS: CITALOPRAM 10 MG TABLET PO SCH (08:02)
[2018-07-20] MEDS: SACCHAROMYCES BOULARDII 250 MG CAPSULE PO SCH ×2 (08:02→16:55)
[2018-07-20] MEDS: oxyCODONE 5 MG TABLET PO PRN ×4 (08:02→20:52)
[2018-07-20] MEDS: clonazePAM 0.5 MG TABLET PO PRN ×3 (08:02→20:53)
[2018-07-20] MEDS: INSULIN ASPART 300 UNIT/3 ML PEN SUBQ SCH ×4 (08:07→20:53)
[2018-07-20] MEDS: INSULIN GLARGINE 300 UNIT/3 ML PEN SUBQ SCH ×2 (08:08→20:53)
[2018-07-20] MEDS: POLYETHYLENE GLYCOL 3350 17 GM PACKET PO SCH (08:08)
[2018-07-20] MEDS: ACETAMINOPHEN 325 MG TABLET PO PRN ×2 (08:13→22:16)
[2018-07-20] MEDS: DAPTOMYCIN IV SCH (12:29)
[2018-07-20] MEDS: SODIUM CHLORIDE 0.9% IV SCH (12:29)
--- NOTE | 2018-07-20 15:54 | PROVIDER PROGRESS NOTE ---
Subjective - Prog Note Date Prog Note Date: 07/20/18 Prog Note Time: 09:00 - Subjective Pt reports feeling: Improved Subjective: Naomi has several complaints including the possible upcoming changes with her diabetes management, and new found osteomylitis. She denies headaches, chest pain, nausea, vomiting, diarrhea, a rash, or a new cough. *Insulin supplies have been pre-sent to her pharmacy of choice- [facility]. Received a call from [facility], only insulin vials are covered, otherwise all other supplies appear to be covered. Current Medications - Current Medications Current Medications: Active Medications: Acetaminophen (Tylenol) 650 mg PO Q4HR PRN Alprazolam (Xanax) 1 mg PO DAILY PRN Calcium Carbonate/Glycine (Tums) 500 mg PO BID PRN Citalopram Hydrobromide (Celexa) 40 mg PO DAILY [facility] Clonazepam (Klonopin) 0.5 mg PO TID PRN Enoxaparin Sodium (Lovenox) 40 mg SUBQ DAILY [facility] Glimepiride (Amaryl) 2 mg PO QDDINNER [facility] Glimepiride (Amaryl) 4 mg PO QDBREAKFAST [facility] Sodium Chloride (Normal Saline 0.9%) 500 mls @ 0 mls/hr IV Q24H PRN Daptomycin 700 mg/ Sodium (Chloride) 100 mls @ 200 mls/hr IV DAILY [facility] Insulin Aspart (Novolog) 2 - 10 unit SUBQ 0800,1200,1700,2100 [facility]; Protocol Insulin Glargine (Lantus Solostar) 10 unit SUBQ BID [facility] Norvasc 5 mg PO daily [facility] Multivitamins/Minerals (Theragran M) 1 tab PO DAILYWM [facility] Ondansetron HCl (Zofran Inj) 4 mg IVP Q6HR PRN Oxycodone HCl (Roxicodone) 10 mg PO Q4HR PRN Carisoprodol [Soma] (350 Mg Tab) 1 each PO TID PRN Polyethylene Glycol (Miralax) 17 gm PO DAILY [facility] Saccharomyces Boulardii (Florastor) 250 mg PO BIDWM [facility] Diflucan 100mg PO daily Zolpidem Tartrate (Ambien) 5 mg PO QPM PRN HOME meds: Alprazolam [Xanax] 1 mg PO DAILY PRN 02/16/13 Citalopram [CeleXA] 40 mg PO DAILY 02/16/13 Losartan [Cozaar] 50 mg PO DAILY 02/16/13 metFORMIN [Glucophage] 1,000 mg PO BID 02/16/13 (Now contraindicated- lactic acidosis) Carisoprodol [Soma] 350 mg PO TID PRN 06/30/18 Glimepiride 2 mg PO DAILY 06/30/18 Oxycodone HCl 10 mg PO .Q6-8H PRN 06/30/18 clonazePAM [Clonazepam] 0.5 - 1 mg PO TID PRN 06/30/18 Glimepiride [Amaryl] 1 mg PO QPM 07/16/18 Objective - Vital Signs/Intake & Output Reviewed Vital Signs: Yes Vital Signs: Vital Signs x48h Temp Pulse Resp BP Pulse Ox 07/20/18 11:37 36.7 C 67 18 149/76 H 97 07/20/18 08:15 36.5 C 56 L 18 147/76 H 97 Intake & Output: Intake & Output 07/17/18 07/18/18 07/19/18 07/20/18 23:59 23:59 23:59 23:59 Intake Total 2910 2750 3760 1960 Balance 2910 2750 3760 1960 - Objective General Appearance: positive: No acute distress, Alert Eyes Bilateral: positive: Normal inspection, PERRL ENT: positive: ENT inspection nml, Pharynx nml, No signs of dehydration Neck: positive: Nml inspection, Thyroid nml, No JVD, Trachea midline Respiratory: positive: Chest non-tender, No respiratory distress, Breath sounds nml Cardiovascular: positive: Regular rate & rhythm, No gallop, Systolic murmur Peripheral Pulses: 1+ Radial (R), 1+ Radial (L) Abdomen: positive: Non-tender, Nml bowel sounds, Hepatomegaly, Other (obese, rou nded, soft) Back: positive: Nml inspection Skin: positive: Color nml, No rash, Warm, Dry Extremities: positive: Non-tender, Full ROM, Nml appearance, No pedal edema, Other (Right 4th and 5th toes with osteo- dressing CDI) Neurologic/Psychiatric: positive: Oriented x3, CN's nml (2-12), Motor nml, Sen sation nml, Mood/affect nml, Weakness Reflexes: Bicep (R): 3+, Bicep (L): 3+ - Lab Results Fish Bones: 07/20/18 05:34 07/20/18 05:34 Other Labs: Lab Results x24hrs 07/20/18 07/20/18 07/20/18 Range/Units 11:18 07:24 05:34 WBC (4.8-10.8) x10^3/uL RBC (4.20-5.40) 10^6/uL Hgb (12.0-16.0) g/dL Hct (37.0-47.0) % MCV (81.0-99.0) fL MCH (27.0-31.0) pg MCHC (32.0-36.0) g/dL RDW (12.0-15.0) % Plt Count (130-450) 10^3/uL MPV (7.9-10.8) fL Neut # (Auto) (1.5-6.6) 10^3/uL Lymph # (Auto) (1.5-3.5) 10^3/uL [place] # (Auto) (0.0-1.0) 10^3/uL Eos # (Auto) (0.0-0.7) 10^3/uL Baso # (Auto) (0.0-0.1) 10^3/uL Absolute Nucleated RBC x10^3/uL Nucleated RBC % /100WBC Sodium 140 (135-145) mmol/L Potassium 4.2 (3.5-5.0) mmol/L Chloride 102 (101-111) mmol/L Carbon Dioxide 27 (21-32) mmol/L Anion Gap 11.0 (6-13) BUN 12 (6-20) mg/dL Creatinine 0.5 (0.4-1.0) mg/dL Estimated GFR (MDRD) 127 (>89) Glucose 168 H (70-100) mg/dL POC Whole Bld Glucose 209 H 206 H (70 - 100) mg/dL Calcium 8.7 (8.5-10.3) mg/dL 07/20/18 07/19/18 07/19/18 Range/Units 05:34 20:53 17:47 WBC 6.6 (4.8-10.8) x10^3/uL RBC 4.04 L (4.20-5.40) 10^6/uL Hgb 11.3 L (12.0-16.0) g/dL Hct 33.9 L (37.0-47.0) % MCV 83.8 (81.0-99.0) fL MCH 28.0 (27.0-31.0) pg MCHC 33.4 (32.0-36.0) g/dL RDW 13.1 (12.0-15.0) % Plt Count 410 (130-450) 10^3/uL MPV 6.9 L (7.9-10.8) fL Neut # (Auto) 3.6 (1.5-6.6) 10^3/uL Lymph # (Auto) 2.4 (1.5-3.5) 10^3/uL [place] # (Auto) 0.4 (0.0-1.0) 10^3/uL Eos # (Auto) 0.2 (0.0-0.7) 10^3/uL Baso # (Auto) 0.0 (0.0-0.1) 10^3/uL Absolute Nucleated RBC 0.00 x10^3/uL Nucleated RBC % 0.0 /100WBC Sodium (135-145) mmol/L Potassium (3.5-5.0) mmol/L Chloride (101-111) mmol/L Carbon Dioxide (21-32) mmol/L Anion Gap (6-13) BUN (6-20) mg/dL Creatinine (0.4-1.0) mg/dL Estimated GFR (MDRD) (>89) Glucose (70-100) mg/dL POC Whole Bld Glucose 244 H 156 H (70 - 100) mg/dL Calcium (8.5-10.3) mg/dL ABX Reporting Has patient been on IV antibiotics over the past 48 hours?: Yes Sepsis Event Note (H) - Evaluation Current Stage of Sepsis: Ruled out Possible source of Sepsis: positive: Skin/soft tissue Assessment/Plan - Problem List (1) Osteomyelitis of foot, right, acute Impression: - MRI of right foot results show involvement of both 4th and 5th toes - Ortho surgery is following - Patient refuses surgery of any kind, including a bone biopsy which would allow us to guide antibiotic therapy - Anticipate discharge 07/21/18 after daily Daptomycin dose is given - Now with a newly established LUE PICC- single lumen Plan: Continue Daptomycin (2) Lactic acidosis Impression: - Alarmingly elevated levels; 5.2 on 07/15, now 3.3 - Re-check in the AM - Likely caused by acute osteomyelitis, metformin Plan: Stop metformin, continue to monitor (3) Type 2 diabetes mellitus with complication Impression: - Hemoglobin A1C was 7.9%, indicating average blood sugars to be ~180 - Sugars today have been 209-244 - Increased Lantus to 10 U BID, SSI coverage remains high Plan: Send all diabetic supplies to the pharmacy [facility], continue treatment (4) Medical non-compliance Impression: -Suspected that this is not a new phenomenon - Uncontrolled DM - Non-healing right foot wound, now with osteo - Refusal/reluctance in starting insulin as she "might become dependent on it" - Uses a smokeless tobacco pipe, against medical advise as this may prolong wound healing Plan: Encourage and congratulate any inclining of medical compliance, encourage a completion of medical treatments (5) Generalized anxiety disorder Impression: - Evidence of this in reviewing her medication list from home, including Soma, Celexa, Klonopin, and ambien - Unknown addiction history - Continues to use a smokeless pipe in her patient room Plan: Continue meds, recommend psychotherapy outpatient (6) HTN (hypertension) Impression: - Allergy to lisinopril causing a cough - Patient wishes for a change from Losartan since "watching commercials on TV about possible cancer causing side effects" - Start Norvasc as she has no known history of CHF Plan: Continue to monitor vital signs, start Norvasc this evening intending for home use Qualifiers: Hypertension type: essential hypertension Qualified Code(s): I10 - Essential (primary) hypertension (7) Chronic pain syndrome Impression: - Oxycodone and hydrocodone prescribed outpatient - Nursing charting states that she has headaches and right foot pain - Denies pain on exam today Plan: Continue while here, monitor for effectiveness
[2018-07-20] MEDS ORDERED: POLYETHYLENE GLYCOL 3350 17 GM PACKET PO PRN (16:57)
[2018-07-20] MEDS: FLUCONAZOLE 100 MG TABLET PO SCH (18:06)
[2018-07-20] MEDS: amLODIPine 5 MG TABLET PO SCH (18:07)
[2018-07-20] MEDS: ZOLPIDEM 5 MG TABLET PO PRN (21:29)
[2018-07-20] MEDS: CARISOPRODOL 350 MG PO PRN (21:37)
[2018-07-21] MEDS: SODIUM CHLORIDE FLUSH 0.9% 10 ML SYRINGE IVP SCH ×2 (05:20→09:04)
[2018-07-21 05:56] LABS: HGB - HEMOGLOBIN 11.1 g/dL (12.0-16.0); MEAN CORPUSCULAR HEMOGLOBIN 27.9 pg (27.0-31.0); MEAN CORPUSCULAR HGB CONC 33.3 g/dL (32.0-36.0); MEAN CORPUSCULAR VOLUME 83.8 fL (81.0-99.0); MEAN PLATELET VOLUME 7.2 fL (7.9-10.8); RED BLOOD COUNT 3.99 10^6/uL (4.20-5.40); WHITE BLOOD COUNT 6.5 x10^3/uL (4.8-10.8)
[2018-07-21 05:57] LABS: ALBUMIN 3.5 g/dL (3.2-5.5); ALBUMIN/GLOBULIN RATIO 1.1 (1.0-2.2); BILIRUBIN,TOTAL 0.6 mg/dL (0.2-1.0); CALCIUM 8.8 mg/dL (8.5-10.3); CREATININE 0.6 mg/dL (0.4-1.0); CRP - C-REACTIVE PROTEIN 2.5 mg/dL (0-1.0); TOTAL PROTEIN 6.7 g/dL (6.7-8.2)
[2018-07-21 07:35] VITALS: BP 171/86
[2018-07-21] MEDS: oxyCODONE 5 MG TABLET PO PRN (08:31)
[2018-07-21] MEDS: ACETAMINOPHEN 325 MG TABLET PO PRN (08:36)
[2018-07-21] MEDS: clonazePAM 0.5 MG TABLET PO PRN ×2 (08:36→12:24)
[2018-07-21] MEDS ORDERED: SODIUM CHLORIDE 0.9% 100ML 100 ML IV ONE (08:40)
[2018-07-21] MEDS: CITALOPRAM 10 MG TABLET PO SCH (08:42)
[2018-07-21] MEDS: MULTIVITAMIN W/MINERALS TABLET PO SCH (08:45)
[2018-07-21] MEDS: SACCHAROMYCES BOULARDII 250 MG CAPSULE PO SCH (08:46)
[2018-07-21] MEDS: amLODIPine 5 MG TABLET PO SCH (08:46)
[2018-07-21] MEDS: GLIMEPIRIDE 2 MG TABLET PO SCH (08:46)
[2018-07-21] MEDS: FLUCONAZOLE 100 MG TABLET PO SCH (08:47)
[2018-07-21] MEDS: INSULIN ASPART 300 UNIT/3 ML PEN SUBQ SCH ×2 (08:52→11:17)
[2018-07-21] MEDS: INSULIN GLARGINE 300 UNIT/3 ML PEN SUBQ SCH (08:52)
[2018-07-21] MEDS: ENOXAPARIN 40 MG/0.4 ML SYRINGE SUBQ SCH (08:53)
[2018-07-21] MEDS: DAPTOMYCIN IV SCH (09:04)
[2018-07-21] MEDS: SODIUM CHLORIDE 0.9% IV SCH (09:04)
--- NOTE | 2018-07-21 10:41 | Discharge Plan ---
Discharge Plan Disposition: 06 Home Health Service Condition: Good Prescriptions: oxyCODONE [Roxicodone] 10 mg PO Q4HR PRN #30 tablet PRN Reason: Pain 5 to 7 Blood Sugar Diagnostic [Glucometer Strips] 1 each QID #190 strip Blood-Glucose Meter [Glucometer] 1 each QID #1 each DAPTOmycin [Daptomycin] 700 mg IV DAILY #42 vial Insulin Glargine [Lantus Solostar] 18 unit SUBQ DAILY #1 pen Lancing Device/Lancets [Unistik-2 3 mm Device] 1 each QID #190 kit Melatonin 10 mg PO DAILY PM #30 tab.rapdis Pen Needle, Diabetic [Pen [place]] 1 each QID #190 dis.needle Saccharomyces Boulardii [Florastor] 250 mg PO BID #60 capsule Diet: Diabetic Activity Restrictions: Wt Bearing as Tolerated (to LLE) Shower Restrictions: Yes Driving Restrictions: Yes Assistance Devices: Walker Instruction Topics: Insulin Injected, Amlodipine, PICC, Injection Sub Q Giving, Injection Pens Dc Additional Instructions or Follow Up instructions: You were admitted for the second time for the same cellulitis involving your left 4th and 5th toes. Imaging confirmed osteomyelitis (infection of the bone tissue). The best way to guide antibiotic therapy is to take a sample of the infected bone, but you indicated that you would like to wait, so this was not done. Infusion clinic is prepared to help you out with daily IV antibiotic treatment using your left upper arm PICC line. I have resumed your home care services. I have also referred you to a diabetic nurse educator to help you transition back off the insulin after this infection is cleared. All diabetic supplies were sent last night to [facility], and only the insulin vials are covered by your insurance without any other issues. I have given you a short course of oxycodone to get you through the acute pain caused by the bone infection. The sleeping aide I recommend is Melatonin as you are already on several sedatives. It was really great getting to know you and best of luck. Please see your PCP within one week of this stay if possible. Follow-Up Care: Home Health - RN (for wound cares), [facility] - Wound/Ostomy, [facility] - Diabetes Ed No Smoking: If you smoke, Please STOP! Call for help. Follow-up with: GREG JULIO MD [Primary Care Provider] -
--- NOTE | 2018-07-21 12:59 | DISCHARGE SUMMARY ---
"Discharge Summary Admit Date: 07/15/18 Discharge Date: 07/21/18 Discharging Provider: LITZY Ham Primary Care Provider: Tammy Davidson MD Code Status: Attempt Resuscitation Condition at Discharge: Good Discharge Disposition: 06 Home Health Service - DIAGNOSES Admission Diagnoses: Type 2 diabetes mellitus with other skin complications (E11.628) Acidosis (E87.2) Agoraphobia, unspecified (F40.00) Anxiety disorder, unspecified (F41.9) Essential (primary) hypertension (I10) Unspecified abdominal pain (R10.9) Discharge Diagnoses with Status of Each Condition: Osteomyelitis of right foot (M86.9) new on this admission. Patient refused a bone biopsy, continued on IV home infusions with Daptomycin Lactic acidosis (E87.2) resolved after Metformin was stopped. 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 She presented to the ER with complaints of wor sening right foot infection after being discharged from the hospital about two weeks ago. She was given oral antibiotics to be continued at home. She denied non-compliance in taking all of her medications as prescribed, especially her antibiotics and her diabetic meds. She was receiving home wound care three times per week, but on her last nursing visit, the nurse noted a decline in appearance worrisome for infection. Upon initial exam the patient denied fevers, chills, chest pain, nausea, vomiting, diarrhea, a new cough or increased confusion. Imaging 2 weeks ago; Right foot via CT with contrast showed a right foot cellulitis without abscess. X-ray now shows a small plantar calcaneal spur, no definite fracture, no bone lesion, soft tissue injury without soft tissue gas or foreign body. Labs showed a very high lactic acid level of 5.2, an elevated anion gap of 16, sodium of 130, glucose of 285, an elevated WBC count at 13.4. The patient was otherwise hemodynamically stable now. Orthopedics surgery, Dr. Hilliard was consulted by the ED provider to evaluate for wound debridement, or possibly amputation. She was admitted to inpatient for further IV antibiotics. - CONSULTS | PROCEDURES Consultations: Orthopedic surgery- Dr. Hilliard Procedures: NONE- patient refused bone biopsy of right toes - HOSPITAL COURSE Hospital Course: The patient was very reluctant to staying on insulin for home use due to her ongoing wound not healing, but finally by the time of discharge was agreeable thanks to the efforts of our diabetic education team. Prescriptions were pre- sent to the pharmacy to confirm approval. MRI confirmed osteomyelitis, which would need a bone biopsy to guide therapy. Multiple attempts were made to present this fact to her, but would not allow ortho surgery to take a bone sample and wanted to wait a few weeks on IV therapy to see if she would get better. She was medically stable and discharged home with infusion solutions to continue home infusion with IV daptomycin daily. She was to follow up with her PCP. - ALLERGIES Allergies/Adverse Reactions: Allergies Allergy/AdvReac Type Severity Reaction Status Date / Time lisinopril Allergy Unknown Verified 07/15/18 14:47 - MEDICATIONS Home Medications: Ambulatory Orders Medication Instructions Recorded Confirmed Alprazolam [Xanax] 1 mg PO DAILY PRN 02/16/13 07/15/18 Citalopram [CeleXA] 40 mg PO DAILY 02/16/13 07/15/18 Losartan [Cozaar] 50 mg PO DAILY 02/16/13 07/15/18 Carisoprodol [Soma] 350 mg PO TID PRN 06/30/18 07/15/18 Glimepiride 2 mg PO DAILY 06/30/18 07/16/18 Oxycodone HCl 10 mg PO .Q6-8H PRN 06/30/18 07/15/18 clonazePAM [Clonazepam] 0.5 - 1 mg PO TID PRN 06/30/18 07/15/18 Hydrocodone/Acetaminophen 1 each PO DAILY #21 tablet 07/02/18 07/15/18 [Hydrocodone-Acetamin 10-325 mg] Glimepiride [Amaryl] 1 mg PO QPM 07/16/18 07/16/18 Blood Sugar Diagnostic [Glucometer 1 each QID #190 strip 07/20/18 Strips] Blood-Glucose Meter [Glucometer] 1 each QID #1 each 07/20/18 DAPTOmycin [Daptomycin] 700 mg IV DAILY #42 vial 07/20/18 Insulin Glargine [Lantus Solostar] 18 unit SUBQ DAILY #1 pen 07/20/18 Lancing Device/Lancets [Unistik-2 1 each QID #190 kit 07/20/18 3 mm Device] Pen Needle, Diabetic [Pen [place]] 1 each QID #190 dis.needle 07/20/18 Melatonin 10 mg PO DAILY PM #30 tab.rapdis 07/21/18 Saccharomyces Boulardii [Florastor] 250 mg PO BID #60 capsule 07/21/18 oxyCODONE [Roxicodone] 10 mg PO Q4HR PRN #30 tablet 07/21/18 - PHYSICAL EXAM AT DISCHARGE General Appearance: positive: No acute distress, Alert Eyes Bilateral: positive: Normal inspection, PERRL ENT: positive: ENT inspection nml, Pharynx nml, No signs of dehydration Neck: positive: Nml inspection, Thyroid nml, No JVD, Trachea midline Respiratory: positive: Chest non-tender, No respiratory distress, Breath sounds nml Cardiovascular: positive: Regular rate & rhythm, No gallop Peripheral Pulses: positive: 2+ Abdomen: positive: Non-tender, Nml bowel sounds, Hepatomegaly, Other (rounded, soft) Back: positive: Nml inspection Skin: positive: Color nml, No rash, Warm, Dry Extremities: positive: Non-tender, Full ROM, Pedal edema, Joint swelling Neurologic/Psychiatric: positive: Oriented x3, CN's nml (2-12), Motor nml, Sensation nml, Mood/affect nml Reflexes: Bicep (R): 3+, Bicep (L): 3+ - LABS Result Diagrams: 07/21/18 05:20 07/21/18 05:20 - DIAGNOSTIC IMAGING Diagnostic Imaging Results: Final report reviewed Diagnostic Imaging Results Comments: EXAM: RIGHT FOOT RADIOGRAPHY EXAM DATE: 07/15/2018 04:06 PM IMPRESSION: Soft tissue injury. EXAM: RIGHT FOREFOOT MRI WITHOUT AND WITH CONTRAST EXAM DATE: 07/19/2018 05:33 PM. FINDINGS: Bones: The proximal and distal fifth phalanx and the middle fourth phalanx show a low signal on T1, high signal on T2 with intense enhancement. First, second, and third toes are unremarkable. No other bony abnormalities. Joints: No subluxations. No effusions. The onlgft-eermsqke-iplcwcxigc complex is unremarkable. The visualized plantar plates are unremarkable. Articular Cartilage: Unremarkable. Ligaments: The visualized collateral ligaments are intact. Tendons: The flexor and extensor tendons are unremarkable. Musculature: Extensive fatty atrophy in the intrinsic muscles of the forefoot. Other: Subcutaneous edema and swelling is seen primarily in the dorsal and lateral aspect of the foot. No evidence for drainable fluid collections or abscesses. Some skin irregularity is also seen in this region, probably some superficial ulcerations. IMPRESSION: 1. MRI features indicate osteomyelitis as seen in the fifth proximal distal phalanx and in the middle fourth phalanx. 2. Some surrounding cellulitis without abscess is seen in the distal forefoot laterally. 3. Extensive fatty replacement of the intrinsic musculature of the forefoot. - SEPSIS Current Stage of Sepsis: Ruled out Possible source of Sepsis: Skin/soft tissue Sepsis Criteria: WBC count greater than 10% bands, WBC count greater than 12,000 or less than 4000, Metabolic: lactate > 2 mmol/L - FOLLOW UP Follow Up: Disposition: 06 Home Health Service Condition: Good Prescriptions: oxyCODONE [Roxicodone] 10 mg PO Q4HR PRN #30 tablet PRN Reason: Pain 5 to 7 Blood Sugar Diagnostic [Glucometer Strips] 1 each MC QID #190 strip Blood-Glucose Meter [Glucometer] 1 each QID #1 each DAPTOmycin [Daptomycin] 700 mg IV DAILY #42 vial Insulin Glargine [Lantus Solostar] 18 unit SUBQ DAILY #1 pen Lancing Device/Lancets [Unistik-2 3 mm Device] 1 each QID #190 kit Melatonin 10 mg PO DAILY PM #30 tab.rapdis Pen Needle, Diabetic [Pen [place]] 1 each QID #190 dis.needle Saccharomyces Boulardii [Florastor] 250 mg PO BID #60 capsule Diet: Diabetic Activity Restrictions: Wt Bearing as Tolerated (to LLE) Shower Restrictions: Yes Driving Restrictions: Yes Assistance Devices: Walker Instruction Topics: Insulin Injected, Amlodipine, PICC, Injection Sub Q Giving, Injection Pens Dc Additional Instructions or Follow Up instructions: You were admitted for the second time for the same cellulitis involving your left 4th and 5th toes. Imaging confirmed osteomyelitis (infection of the bone tissue). The best way to guide antibiotic therapy is to take a sample of the infected bone, but you indicated that you would like to wait, so this was not done. Infusion clinic is prepared to help you out with daily IV antibiotic treatment using your left upper arm PICC line. I have resumed your home care services. I have also referred you to a diabetic nurse educator to help you transition back off the insulin after this infection is cleared. All diabetic supplies were sent last night to [facility], and only the insulin vials are covered by your insurance without any other issues. I have given you a short course of oxycodone to get you through the acute pain caused by the bone infection. The sleeping aide I recommend is Melatonin as you are already on several sedatives. It was really great getting to know you and best of luck. Please see your PCP within one week of this stay if possible. - TIME SPENT Time Spent in Discharge (Minutes): 50"
== END 2018-07-21 12:51 | disposition home health service (06) | DRG 638 ==
LOC: ED 14:34 → MS2 17:20
PROVIDERS: ADMIT Nurse Practitioner Gerontology; ATTEND Nurse Practitioner
PROC: 02HV33Z Insertion of Infusion Device into Superior Vena Cava, Percutaneous Approach (ICD-10-PCS; principal; 2018-07-20)
DX: E11.69 Type 2 diabetes mellitus with other specified complication (principal); M86.9 Osteomyelitis, unspecified; E87.2 Acidosis; I10 Essential (primary) hypertension; E78.00 Pure hypercholesterolemia, unspecified; K52.9 Noninfective gastroenteritis and colitis, unspecified; K57.90 Diverticulosis of intestine, part unspecified, without perforation or abscess without bleeding; F41.1 Generalized anxiety disorder; F31.9 Bipolar disorder, unspecified; Z90.49 Acquired absence of other specified parts of digestive tract; Z90.721 Acquired absence of ovaries, unilateral; K44.9 Diaphragmatic hernia without obstruction or gangrene; F17.200 Nicotine dependence, unspecified, uncomplicated; Z91.14 Patient's other noncompliance with medication regimen; F43.10 Post-traumatic stress disorder, unspecified; F40.01 Agoraphobia with panic disorder; G43.909 Migraine, unspecified, not intractable, without status migrainosus; G47.00 Insomnia, unspecified; G89.4 Chronic pain syndrome; E78.5 Hyperlipidemia, unspecified; M77.31 Calcaneal spur, right foot; E11.65 Type 2 diabetes mellitus with hyperglycemia
CPT/HCPCS: 36415; 73630; 73720; 80048; 80053; 80202; 82009; 83036; 83540; 83605; 83690; 83735; 84466; 84484; 85025; 85027; 85651; 86140; 87040; 99283; 99284; A9270; A9585; C1751; J0878; J1650; J1815; J3370; J7120

== ENCOUNTER 2018-07-28 08:00 | Outpatient (CLI) | payer OTHER, MEDICARE ==
[2018-07-28 14:34] LABS: ALBUMIN 3.9 g/dL (3.2-5.5); ALBUMIN/GLOBULIN RATIO 1.1 (1.0-2.2); BASOPHILS # (AUTO) 0.1 10^3/uL (0.0-0.1); BASOPHILS % (AUTO) 0.6 %; BILIRUBIN,TOTAL 0.4 mg/dL (0.2-1.0); CALCIUM 9.6 mg/dL (8.5-10.3); CREATININE 0.8 mg/dL (0.4-1.0); EOSINOPHILS # (AUTO) 0.2 10^3/uL (0.0-0.7); HGB - HEMOGLOBIN 12.1 g/dL (12.0-16.0); LYMPHOCYTES # (AUTO) 3.1 10^3/uL (1.5-3.5); LYMPHOCYTES % (AUTO) 33.1 %; MEAN CORPUSCULAR HEMOGLOBIN 27.2 pg (27.0-31.0); MEAN CORPUSCULAR HGB CONC 32.8 g/dL (32.0-36.0); MEAN CORPUSCULAR VOLUME 82.8 fL (81.0-99.0); MEAN PLATELET VOLUME 7.9 fL (7.9-10.8); MONOCYTES # (AUTO) 0.5 10^3/uL (0.0-1.0); MONOCYTES % (AUTO) 5.2 %; NEUTROPHILS # (AUTO) 5.6 10^3/uL (1.5-6.6); NEUTROPHILS % (AUTO) 59.1 %; PLT - PLATELET COUNT 344 10^3/uL (130-450); RED BLOOD COUNT 4.44 10^6/uL (4.20-5.40); RED CELL DISTRIBUTION WIDTH 13.2 % (12.0-15.0); TOTAL PROTEIN 7.3 g/dL (6.7-8.2); WHITE BLOOD COUNT 9.5 x10^3/uL (4.8-10.8)
== END 2018-07-28 23:59 | disposition home or self-care (01) ==
LOC: LAB.R 08:00
PROVIDERS: ATTEND Physician Assistant Medical
DX: A41.9 Sepsis, unspecified organism (principal); E11.621 Type 2 diabetes mellitus with foot ulcer
CPT/HCPCS: 80053; 82550; 85025

== ENCOUNTER 2018-08-04 08:00 | Outpatient (CLI) | payer MEDICARE, OTHER ==
[2018-08-04 16:52] LABS: BASOPHILS # (AUTO) 0.1 10^3/uL (0.0-0.1); EOSINOPHILS # (AUTO) 0.2 10^3/uL (0.0-0.7); EOSINOPHILS % (AUTO) 2.9 %; LYMPHOCYTES % (AUTO) 40.2 %; MEAN CORPUSCULAR HEMOGLOBIN 27.5 pg (27.0-31.0); MEAN CORPUSCULAR VOLUME 83.2 fL (81.0-99.0); MEAN PLATELET VOLUME 8.2 fL (7.9-10.8); MONOCYTES # (AUTO) 0.3 10^3/uL (0.0-1.0); MONOCYTES % (AUTO) 4.3 %; NEUTROPHILS # (AUTO) 3.9 10^3/uL (1.5-6.6); NEUTROPHILS % (AUTO) 51.6 %; PLT - PLATELET COUNT 360 10^3/uL (130-450); RED BLOOD COUNT 4.36 10^6/uL (4.20-5.40); RED CELL DISTRIBUTION WIDTH 13.2 % (12.0-15.0); WHITE BLOOD COUNT 7.5 x10^3/uL (4.8-10.8)
[2018-08-04 21:47] LABS: ALBUMIN 3.8 g/dL (3.2-5.5); ALBUMIN/GLOBULIN RATIO 1.2 (1.0-2.2); ALKALINE PHOSPHATASE 69 IU/L (42-121); ALT ALANINE AMINOTRANSFERASE 15 IU/L (10-60); AST ASPARTATE AMINOTRANSFERASE 17 IU/L (10-42); BILIRUBIN,TOTAL < 0.2 mg/dL (0.2-1.0); BUN - BLOOD UREA NITROGEN 19 mg/dL (6-20); CALCIUM 9.3 mg/dL (8.5-10.3); CARBON DIOXIDE - CO2 22 mmol/L (21-32); CHLORIDE 98 mmol/L (101-111); CK- CREATINE KINASE 48 IU/L (22-269); CREATININE 0.7 mg/dL (0.4-1.0); GFR - MDRD 86 (>89); GLUCOSE 115 mg/dL (70-100); SODIUM 134 mmol/L (135-145); TOTAL PROTEIN 7.1 g/dL (6.7-8.2)
== END 2018-08-04 23:59 | disposition home or self-care (01) ==
LOC: LAB.R 08:00
PROVIDERS: ATTEND Family Medicine
DX: A41.9 Sepsis, unspecified organism (principal); E11.621 Type 2 diabetes mellitus with foot ulcer
CPT/HCPCS: 80053; 82550; 85025

== ENCOUNTER 2018-08-11 12:00 | Outpatient (CLI) | payer MEDICARE, OTHER ==
[2018-08-11 13:44] LABS: BASOPHILS % (AUTO) 0.5 %; EOSINOPHILS # (AUTO) 0.3 10^3/uL (0.0-0.7); EOSINOPHILS % (AUTO) 3.6 %; HGB - HEMOGLOBIN 12.4 g/dL (12.0-16.0); LYMPHOCYTES # (AUTO) 2.6 10^3/uL (1.5-3.5); LYMPHOCYTES % (AUTO) 33.3 %; MEAN CORPUSCULAR HEMOGLOBIN 27.9 pg (27.0-31.0); MEAN CORPUSCULAR HGB CONC 33.7 g/dL (32.0-36.0); MEAN CORPUSCULAR VOLUME 82.9 fL (81.0-99.0); MEAN PLATELET VOLUME 7.8 fL (7.9-10.8); MONOCYTES # (AUTO) 0.5 10^3/uL (0.0-1.0); MONOCYTES % (AUTO) 6.2 %; NEUTROPHILS # (AUTO) 4.5 10^3/uL (1.5-6.6); NEUTROPHILS % (AUTO) 56.4 %; PLT - PLATELET COUNT 357 10^3/uL (130-450); RED BLOOD COUNT 4.43 10^6/uL (4.20-5.40); WHITE BLOOD COUNT 7.9 x10^3/uL (4.8-10.8)
[2018-08-11 13:59] LABS: ALBUMIN/GLOBULIN RATIO 1.3 (1.0-2.2); BILIRUBIN,TOTAL 0.5 mg/dL (0.2-1.0); CALCIUM 9.3 mg/dL (8.5-10.3); CREATININE 0.5 mg/dL (0.4-1.0); TOTAL PROTEIN 7.1 g/dL (6.7-8.2)
== END 2018-08-11 23:59 | disposition home or self-care (01) ==
LOC: LAB.R 12:00
PROVIDERS: ATTEND Internal Medicine
DX: A41.9 Sepsis, unspecified organism (principal); E11.621 Type 2 diabetes mellitus with foot ulcer
CPT/HCPCS: 80053; 82550; 85025

== ENCOUNTER 2018-08-18 13:00 | Outpatient (CLI) | payer MEDICARE, OTHER ==
[2018-08-18 15:04] LABS: BASOPHILS # (AUTO) 0.1 10^3/uL (0.0-0.1); BASOPHILS % (AUTO) 1.2 %; EOSINOPHILS # (AUTO) 0.2 10^3/uL (0.0-0.7); EOSINOPHILS % (AUTO) 2.1 %; HGB - HEMOGLOBIN 11.7 g/dL (12.0-16.0); LYMPHOCYTES # (AUTO) 2.3 10^3/uL (1.5-3.5); LYMPHOCYTES % (AUTO) 31.5 %; MEAN CORPUSCULAR HGB CONC 33.8 g/dL (32.0-36.0); MEAN CORPUSCULAR VOLUME 82.7 fL (81.0-99.0); MEAN PLATELET VOLUME 8.1 fL (7.9-10.8); MONOCYTES # (AUTO) 0.5 10^3/uL (0.0-1.0); MONOCYTES % (AUTO) 6.4 %; NEUTROPHILS # (AUTO) 4.4 10^3/uL (1.5-6.6); NEUTROPHILS % (AUTO) 58.8 %; PLT - PLATELET COUNT 312 10^3/uL (130-450); RED BLOOD COUNT 4.19 10^6/uL (4.20-5.40); RED CELL DISTRIBUTION WIDTH 13.7 % (12.0-15.0); WHITE BLOOD COUNT 7.4 x10^3/uL (4.8-10.8)
[2018-08-18 15:11] LABS: ALBUMIN 3.7 g/dL (3.2-5.5); ALBUMIN/GLOBULIN RATIO 1.4 (1.0-2.2); BILIRUBIN,TOTAL 0.3 mg/dL (0.2-1.0); CALCIUM 9.1 mg/dL (8.5-10.3); CREATININE 0.5 mg/dL (0.4-1.0); TOTAL PROTEIN 6.3 g/dL (6.7-8.2)
== END 2018-08-18 23:59 | disposition home or self-care (01) ==
LOC: LAB.R 13:00
PROVIDERS: ATTEND Physician Assistant Medical
DX: A41.9 Sepsis, unspecified organism (principal); E11.621 Type 2 diabetes mellitus with foot ulcer
CPT/HCPCS: 36415; 80053; 82550; 85025

== ENCOUNTER 2018-08-25 08:00 | Outpatient (CLI) | payer MEDICARE, OTHER ==
[2018-08-25 14:28] LABS: BASOPHILS # (AUTO) 0.3 10^3/uL (0.0-0.1); BASOPHILS % (AUTO) 4.1 %; EOSINOPHILS # (AUTO) 0.1 10^3/uL (0.0-0.7); EOSINOPHILS % (AUTO) 1.1 %; HGB - HEMOGLOBIN 12.3 g/dL (12.0-16.0); LYMPHOCYTES # (AUTO) 1.7 10^3/uL (1.5-3.5); LYMPHOCYTES % (AUTO) 23.4 %; MEAN CORPUSCULAR HEMOGLOBIN 27.6 pg (27.0-31.0); MEAN CORPUSCULAR HGB CONC 33.4 g/dL (32.0-36.0); MEAN CORPUSCULAR VOLUME 82.5 fL (81.0-99.0); MEAN PLATELET VOLUME 7.8 fL (7.9-10.8); MONOCYTES # (AUTO) 0.5 10^3/uL (0.0-1.0); MONOCYTES % (AUTO) 6.3 %; NEUTROPHILS # (AUTO) 4.6 10^3/uL (1.5-6.6); NEUTROPHILS % (AUTO) 65.1 %; PLT - PLATELET COUNT 332 10^3/uL (130-450); RED BLOOD COUNT 4.45 10^6/uL (4.20-5.40); RED CELL DISTRIBUTION WIDTH 14.1 % (12.0-15.0); WHITE BLOOD COUNT 7.1 x10^3/uL (4.8-10.8)
[2018-08-25 14:54] LABS: ALBUMIN 3.8 g/dL (3.2-5.5); ALBUMIN/GLOBULIN RATIO 1.2 (1.0-2.2); BILIRUBIN,TOTAL 0.6 mg/dL (0.2-1.0); CALCIUM 9.6 mg/dL (8.5-10.3); CREATININE 0.7 mg/dL (0.4-1.0); TOTAL PROTEIN 6.9 g/dL (6.7-8.2)
[2018-08-25 14:59] LABS: PLATELET ESTIMATE, MANUAL NORMAL (130-450,000) (NORMAL); PLATELET MORPHOLOGY NORMAL APPEARANCE (NORMAL); RBC MORPHOLOGY (MULTIPLE) NORMAL APPEARANCE (NORMAL)
== END 2018-08-25 23:59 | disposition home or self-care (01) ==
LOC: LAB.R 08:00
PROVIDERS: ATTEND Physician Assistant Medical
DX: A41.9 Sepsis, unspecified organism (principal); E11.621 Type 2 diabetes mellitus with foot ulcer
CPT/HCPCS: 80053; 82550; 85025

== ENCOUNTER 2018-09-01 08:00 | Outpatient (CLI) | payer MEDICARE, OTHER ==
[2018-09-01 16:29] LABS: BASOPHILS # (AUTO) 0.1 10^3/uL (0.0-0.1); BASOPHILS % (AUTO) 1.4 %; EOSINOPHILS # (AUTO) 0.1 10^3/uL (0.0-0.7); EOSINOPHILS % (AUTO) 1.2 %; LYMPHOCYTES % (AUTO) 30.7 %; MEAN CORPUSCULAR HEMOGLOBIN 27.6 pg (27.0-31.0); MEAN CORPUSCULAR HGB CONC 33.3 g/dL (32.0-36.0); MEAN CORPUSCULAR VOLUME 82.7 fL (81.0-99.0); MEAN PLATELET VOLUME 8.2 fL (7.9-10.8); MONOCYTES # (AUTO) 0.5 10^3/uL (0.0-1.0); MONOCYTES % (AUTO) 7.6 %; NEUTROPHILS # (AUTO) 3.8 10^3/uL (1.5-6.6); NEUTROPHILS % (AUTO) 59.1 %; PLT - PLATELET COUNT 327 10^3/uL (130-450); RED BLOOD COUNT 4.36 10^6/uL (4.20-5.40); RED CELL DISTRIBUTION WIDTH 13.7 % (12.0-15.0); WHITE BLOOD COUNT 6.4 x10^3/uL (4.8-10.8)
[2018-09-01 16:43] LABS: ALBUMIN 3.8 g/dL (3.2-5.5); ALBUMIN/GLOBULIN RATIO 1.4 (1.0-2.2); BILIRUBIN,TOTAL 0.2 mg/dL (0.2-1.0); CALCIUM 9.5 mg/dL (8.5-10.3); CREATININE 0.7 mg/dL (0.4-1.0); TOTAL PROTEIN 6.6 g/dL (6.7-8.2)
== END 2018-09-01 23:59 | disposition home or self-care (01) ==
LOC: LAB.R 08:00
PROVIDERS: ATTEND Physician Assistant Medical
DX: A41.9 Sepsis, unspecified organism (principal); E11.621 Type 2 diabetes mellitus with foot ulcer
CPT/HCPCS: 80053; 82550; 85025

== ENCOUNTER 2018-11-19 12:59 | Emergency (ER) | payer OTHER, MEDICARE ==
--- NOTE | 2018-11-19 13:43 | ED Physician Documentation ---
PD HPI FEMALE - Stated complaint Stated Complaint: FEMALE - Chief complaint Chief Complaint: Abd Pain - History obtained from History obtained from: Patient - History of Present Illness Timing - onset: Yesterday Timing - duration: Days (2) Timing - details: Gradual onset Pain level max: >10 Pain level max: >10 Associated symptoms: Abdominal pain. No: Fever, Dysuria, Urinary frequency, Hematuria Contributing factors: No: Similar symptoms before: Work up / diagnostics Recently seen: Not recently seen - Additional information Additional information: Is a 58-year-old woman who presents with complaints that she is having abdominal pain started yesterday she has this happen on occasion and so she ate a bunch of [place] sprouts last night hoping the past things through this morning pain but gotten worse the night so she tried to eat a half a exam which this morning and the pain is just been getting increasingly more severe. She is not passing gas and she has not had a bowel movement she has been vomiting. She took an oxycodone pill last night and Vicodin this morning done nothing to touch the pain she is been very nauseous and she feels hot. She rates the pain currently at a 12 out of 10. Patient had a partial colon resection due to diverticulitis 10 about 10 years ago. She said it was a failed surgery and she ended up with mesh to fix her hernia and she was told that she could never have abdominal surgery again despite the fact that she has multiple adhesions. She develops the symptoms from time to time where she feels like she is going to get obstructed but then she will eat a lot of fibrous food and things will just passed through. She is diabetic and is taking glyburide and metformin but denies any recent illness such as sore throat coughing chest pain or rash. Review of Systems Unable to obtain: Other (Acute severe pain) Constitutional: denies: Fever Cardiac: denies: Palpitations Respiratory: denies: Cough GI: reports: Abdominal Pain, Nausea. 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: Oophrectomy HEENT: Rhinoplasty - Present Medications Home Medications: Ambulatory Orders Medication Instructions Recorded Confirmed Alprazolam [Xanax] 1 mg PO DAILY PRN 02/16/13 07/15/18 Citalopram [CeleXA] 40 mg PO DAILY 02/16/13 07/15/18 Losartan [Cozaar] 50 mg PO DAILY 02/16/13 07/15/18 Carisoprodol [Soma] 350 mg PO TID PRN 06/30/18 07/15/18 Glimepiride 2 mg PO DAILY 06/30/18 07/16/18 Oxycodone HCl 10 mg PO .Q6-8H PRN 06/30/18 07/15/18 clonazePAM [Clonazepam] 0.5 - 1 mg PO TID PRN 06/30/18 07/15/18 Hydrocodone/Acetaminophen 1 each PO DAILY #21 tablet 07/02/18 07/15/18 [Hydrocodone-Acetamin 10-325 mg] Glimepiride [Amaryl] 1 mg PO QPM 07/16/18 07/16/18 Blood Sugar Diagnostic [Glucometer 1 each QID #190 strip 07/20/18 Strips] Blood-Glucose Meter [Glucometer] 1 each QID #1 each 07/20/18 DAPTOmycin [Daptomycin] 700 mg IV DAILY #42 vial 07/20/18 Insulin Glargine [Lantus Solostar] 18 unit SUBQ DAILY #1 pen 07/20/18 Lancing Device/Lancets [Unistik-2 1 each QID #190 kit 07/20/18 3 mm Device] Pen Needle, Diabetic [Pen [place]] 1 each QID #190 dis.needle 07/20/18 Melatonin 10 mg PO DAILY PM #30 tab.rapdis 07/21/18 Saccharomyces Boulardii [Florastor] 250 mg PO BID #60 capsule 07/21/18 oxyCODONE [Roxicodone] 10 mg PO Q4HR PRN #30 tablet 07/21/18 - Allergies Allergies/Adverse Reactions: Allergies Allergy/AdvReac Type Severity Reaction Status Date / Time lisinopril Allergy Unknown Verified 11/19/18 13:08 - Social History Does the pt smoke?: Yes Smoking Status: Current every day smoker Does the pt drink ETOH?: Yes Does the pt have substance abuse?: No - Immunizations Immunizations are current?: Yes - POLST Patient has POLST: No POLST Status: Full Code PD ED PE NORMAL - Vitals Vital signs reviewed: Yes - General General: Alert and oriented X 3, Well developed/nourished, Other (She is in pain writhing on the bed) - HEENT HEENT: PERRL, Other (No scleral icterus. Mucous membranes are dry.) - Neck Neck: Thyroid normal - Cardiac Cardiac: No murmur, Strong equal pulses, Other (Tachycardic) - Respiratory Respiratory: No respiratory distress, Clear bilaterally - Abdomen Abdomen: Other (There are no bowel tones. Her abdomen does appear little distended and she is exquisitely tender in the left upper quadrant with guarding and rebound.) - Derm Derm: No rash, Other (Her face appears flushed.) - Extremities Extremities: No edema - Neuro Neuro: Alert and oriented X 3, Other Results - Vitals Vitals: Vital Signs - 24 hr 11/19/18 11/19/18 11/19/18 13:05 15:54 17:33 Temperature 35.7 C L Heart Rate 102 H 86 85 Respiratory 20 16 18 Rate Blood Pressure 185/93 H 159/89 H 159/92 H O2 Saturation 95 96 96 11/19/18 11/19/18 11/19/18 19:23 21:48 22:52 Temperature 37.0 C Heart Rate 93 100 100 Respiratory 18 18 20 Rate Blood Pressure 148/95 H 169/102 H 164/96 H O2 Saturation 96 93 95 Oxygen O2 Source Room air - Labs Labs: Laboratory Tests 11/19/18 11/19/18 11/19/18 14:26 14:26 14:26 WBC 11.0 H RBC 5.02 Hgb 14.4 Hct 41.1 MCV 81.9 MCH 28.7 MCHC 35.0 RDW 13.5 Plt Count 380 MPV 9.3 Neut # (Auto) 8.4 H Lymph # (Auto) 1.9 [place] # (Auto) 0.5 Eos # (Auto) 0.0 Baso # (Auto) 0.0 Absolute Nucleated RBC 0.00 Nucleated RBC % 0.0 Sodium 134 L Potassium 3.7 Chloride 89 L Carbon Dioxide 20 L Anion Gap 25.0 H BUN 19 Creatinine 0.6 Estimated GFR (MDRD) 103 Glucose 314 H Lactic Acid 4.7 H* Calcium 9.8 Total Bilirubin 1.0 AST 27 ALT 24 Alkaline Phosphatase 77 Total Protein 7.4 Albumin 4.3 Globulin 3.1 Albumin/Globulin Ratio 1.4 Lipase 19 L Urine Color Urine Clarity Urine pH Ur Specific [place] Urine Protein Urine Glucose (UA) Urine Ketones Urine Occult Blood Urine Nitrite Urine Bilirubin Urine Urobilinogen Ur Leukocyte Esterase Urine RBC Urine WBC Ur Squamous Epith Cells Urine Bacteria Ur Microscopic Review Urine Culture Comments 11/19/18 11/19/18 14:55 21:57 WBC RBC Hgb Hct MCV MCH MCHC RDW Plt Count MPV Neut # (Auto) Lymph # (Auto) [place] # (Auto) Eos # (Auto) Baso # (Auto) Absolute Nucleated RBC Nucleated RBC % Sodium Potassium Chloride Carbon Dioxide Anion Gap BUN Creatinine Estimated GFR (MDRD) Glucose Lactic Acid 3.9 H* Calcium Total Bilirubin AST ALT Alkaline Phosphatase Total Protein Albumin Globulin Albumin/Globulin Ratio Lipase Urine Color YELLOW Urine Clarity CLEAR Urine pH 5.5 Ur Specific [place] 1.025 Urine Protein 100 H Urine Glucose (UA) 500 H Urine Ketones >=80 H Urine Occult Blood NEGATIVE Urine Nitrite POSITIVE H Urine Bilirubin NEGATIVE Urine Urobilinogen 0.2 (NORMAL) Ur Leukocyte Esterase NEGATIVE Urine RBC None Seen Urine WBC 0-3 Ur Squamous Epith Cells NONE SEEN Urine Bacteria Moderate H Ur Microscopic Review INDICATED Urine Culture Comments INDICATED - Rads (name of study) ct abd/pelvis Radiology: See rad report (SBO) PD MEDICAL DECISION MAKING - ED course Complexity details: re-evaluated patient, d/w patient, d/w corporate health consultant ED course: 1517: Patient received a milligram of Dilaudid and felt better for about "15 minutes". Pain is coming back again and she is given an additional milligram of Dilaudid. She has not yet gone for her CT scan. White blood cell counts mildly elevated at 11 but her lactic acid came back at 4.7. She is ordered for 2 L of saline bolus and I have added Zosyn. 1904: 2nd phone call with Rich. Requested a 2nd lactate. The surgeon did come and evaluate the patient she felt like with her prior surgical history she was to complex of the case to take care [facility] and requested that she be transferred. Because the patient had [facility] insurance they had to approve and arrange for her transfer. In the meantime the patient required repeated dosing of Dilaudid and I eventually gave her 5 mg of Haldol because it was not controlling her pain adequately. Her arrived in the emergency department and was quite agitated that things were moving more rapidly. The patient had repeatedly told me that she was not going to have surgery done in fact when the second lactate was requested by [facility] she would not let the labs draw her blood again until it was made clear to her that we could not transfer her anywhere until they had the second lactate because they were determining whether or not she needed to be admitted to the ICU. Her second lactate was down to 3.8 and I was notified that [facility] had accepted her transfer to [facility]. The patient felt was grateful that she was going to [facility]. The Haldol seemed to help her pain tremendously. She remained n.p.o. despite repeated attempts to drink from her own cup at the bedside which was removed from her. - Critical Care Time Includes: Direct patient care, Review records, Reassess patient, Document care, Coordinate care, Medical consult Data interpretation: Labs Departure - Departure Disposition: 02 Transfer Acute Care Hosp Clinical Impression: SBO (small bowel obstruction)
[2018-11-19] MEDS ORDERED: SODIUM CHLORIDE 0.9% 1,000 ML IV ONE ×3 (13:51→21:20)
[2018-11-19] MEDS ORDERED: HYDROmorphone 1 MG/ML CARPUJECT IVP STA ×3 (13:51→19:13)
[2018-11-19] MEDS ORDERED: ONDANSETRON 4 MG/2 ML VIAL IVP STA ×2 (13:51→21:22)
[2018-11-19] MEDS ORDERED: IOVERSOL 320 100 ML VIAL IVP ONE ×2 (14:08→16:03)
[2018-11-19 14:34] LABS: BASOPHILS % (AUTO) 0.4 %; EOSINOPHILS % (AUTO) 0.3 %; HGB - HEMOGLOBIN 14.4 g/dL (12.0-16.0); LYMPHOCYTES # (AUTO) 1.9 10^3/uL (1.5-3.5); LYMPHOCYTES % (AUTO) 17.5 %; MEAN CORPUSCULAR HEMOGLOBIN 28.7 pg (27.0-31.0); MEAN CORPUSCULAR VOLUME 81.9 fL (81.0-99.0); MEAN PLATELET VOLUME 9.3 fL (7.9-10.8); MONOCYTES # (AUTO) 0.5 10^3/uL (0.0-1.0); MONOCYTES % (AUTO) 4.3 %; NEUTROPHILS # (AUTO) 8.4 10^3/uL (1.5-6.6); NEUTROPHILS % (AUTO) 76.9 %; PLT - PLATELET COUNT 380 10^3/uL (130-450); RED BLOOD COUNT 5.02 10^6/uL (4.20-5.40); RED CELL DISTRIBUTION WIDTH 13.5 % (12.0-15.0)
[2018-11-19 15:11] LABS: BILIRUBIN,URINE NEGATIVE (NEGATIVE); CLARITY,URINE CLEAR (CLEAR); GLUCOSE, URINE (UA) 500 mg/dL (NEGATIVE); KETONES,URINE (UA) >=80 mg/dL (NEGATIVE); LEUKOCYTE ESTERASE, URINE NEGATIVE (NEGATIVE); NITRITE,URINE POSITIVE (NEGATIVE); OCCULT BLOOD,URINE NEGATIVE (NEGATIVE); PH,URINE 5.5 PH (5.0-7.5); PROTEIN,URINE 100 mg/dL (NEGATIVE); UROBILINOGEN,URINE 0.2 (NORMAL) E.U./dL (NORMAL)
[2018-11-19] MEDS ORDERED: PIPERACILLIN/TAZOBACTAM 4.5 GM in SODIUM CHLORIDE 0.9% MINIBAG 100 ML IV STA (15:16)
[2018-11-19 15:18] LABS: ALBUMIN 4.3 g/dL (3.2-5.5); ALBUMIN/GLOBULIN RATIO 1.4 (1.0-2.2); CALCIUM 9.8 mg/dL (8.5-10.3); CREATININE 0.6 mg/dL (0.4-1.0); TOTAL PROTEIN 7.4 g/dL (6.7-8.2)
[2018-11-19] MEDS: HYDROmorphone 1 MG/ML CARPUJECT IVP STA ×2 (15:25→17:25)
[2018-11-19 15:27] LABS: BACTERIA,URINE Moderate /HPF (None Seen); RBC,URINE None Seen /HPF (0-5); SQUAMOUS EPITHELIAL CELL,UR NONE SEEN (<= Few)
--- NOTE | 2018-11-19 16:04 | CT Report ---
Reason: abd pain Procedure Date: 11/19/2018 Accession Number: [id number] / [id number] Procedure: CT - Abdomen/Pelvis W CPT Code: FULL RESULT: EXAM: CT ABDOMEN AND PELVIS EXAM DATE: 11/19/2018 03:36 PM. CLINICAL HISTORY: Abdominal pain COMPARISONS: CT of 10/29/2010. TECHNIQUE: Routine helical CT imaging was performed through the abdomen and pelvis. IV contrast: OPTI 320 100ML. Enteric contrast: No. Reconstructions: Coronal and sagittal. In accordance with CT protocol optimization, one or more of the following dose reduction techniques were utilized for this exam: automated exposure control, adjustment of mA and/or KV based on patient size, or use of iterative reconstructive technique. FINDINGS: Lung Bases: 5 mm nodule with linear morphology in the right middle lobe is unchanged. Liver: The liver is enlarged, measuring 25 cm in length. Diffusely hypoattenuating parenchyma. No mass. Gallbladder/Bile Ducts: Unremarkable. Spleen: Normal. Pancreas: Not to moderate atrophy. Adrenal Glands: Normal. 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 Tiny adjacent cortical hypodensity. No hydronephrosis. Peritoneal Cavity/Bowel: The stomach is distended. Nondilated duodenum. There are multiple mildly dilated loops of jejunum with transition point to decompressed small bowel in the central mesentery. The insertion due to adhesions given prior ventral hernia repair although the transition point is not near the mesh or ventral abdominal wall. Mild mesenteric edema adjacent to the dilated jejunal loops. The obstructed bowel demonstrates normal mucosal enhancement. No free fluid, free air or pneumatosis. Remainder of small bowel is decompressed, as is the majority of the colon. The appendix is absent. Post surgical changes in the rectosigmoid colon with patent anastomosis. Pelvic Organs: The bladder, uterus and adnexa are unremarkable. Vasculature: Moderate atherosclerosis. No aortic aneurysm. Bones: Mild degenerative changes in the spine. Other: Previous mesh ventral hernia repair. IMPRESSION: 1. Proximal small bowel obstruction with transition point in the central mesentery. Mild adjacent mesenteric edema without findings of vascular compromise. 2. Postsurgical changes in the rectosigmoid colon and of ventral hernia repair. 3. Enlarged liver with fatty infiltration. [facility]
--- NOTE | 2018-11-19 18:00 | CONSULTATION NOTE ---
Referring Provider Name of Referring Provider:: Dr. Isabelle Londono Consult Date: 11/19/18 Chief Complaint - Chief Complaint Chief Complaint: Small Bowel Obstruction History of Present Illness - Admitted From Admitted From:: Patient seen in the ED and remained there - History Obtained From Records Reviewed: Labs, notes and other studies from all prior admission to History obtained from: Patient, old records, Dr. Londono Exam Limitations: None - History of Present Illness HPI Comment/Other: Unfortunate 58 year old lady who presents to the ED with a several day history of worsening left upper quadrant abdominal pain. She was seen and evaluated by Dr. Londono and found to have a significant lactic acidosis and obstruction of the mid small bowel demonstrated on CT scan. I have been consulted regarding this finding. Ever reports that she has a history of having 14 inches of her colon removed for severe episode of diverticulitis. She says that everything that could go wrong during that operation did go wrong terrible open wound and hernias. She is been told before that all of her bowel was stuck to the mesh is in her abdominal cavity to hold her abdomen together. She has seen multiple specialists including is at [facility] who told her that her mortality for any surgical procedure is greater than 25%. She has been seen in our emergency room on several occasions, the most recent was for a diabetic foot ulcer involving her right foot that has been very slow to heal. MRI of that injury findings consistent with osteomyelitis. Ever reports that there were signs in her own body that things were not going as they should. These signs included pain in her neck on both sides, difficulty sleeping, acid reflux - which is unusual for her, and a change in her bowel habits. She says she has had diarrhea since her first colon operation many years ago. She usually has 6 or 7 diarrhea like stools each day. Recently, she has days during which she has no bowel movement at all. She has been told she should avoid surgery absolutely and she tells me today that she will not have surgery. She has been informed of her lactic acidosis by Dr. Londono but says she isn't worried about that because she has had that before. She states that if there is any chance she will need surgery, she wants to go to a larger facility. A review of old records reveals the patient has in fact exhibited a significant lactic acidoses on multiple pr ior admissions including the most recent admission for sepsis involving her right foot. She expresses that the pain is extraordinary and the medication to control her discomfort thus far is inadequate. History - Past Medical History Cardiovascular: reports: Hypertension, High cholesterol Respiratory: reports: None Neuro: reports: None Endocrine/Autoimmune: reports: Type 2 diabetes GI: reports: Hiatal hernia, Chronic diarrhea, Diverticulitis : reports: None HEENT: reports: Other Psych: reports: Depression, Anxiety, Bipolar disorder Musculoskeletal: reports: None (Osteomyelitis and chronic diabetic ulcer involving the right foot), Other Derm: reports: None MRSA Hx?: No - Past Surgical History General: reports: Appendectomy, Bowel surgery, Other (Partial colectomy for diverticulitis, Ventral hernia repair with mesh, possible hiatal hernia repair ) /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 She currently is disablity. She without child. Social History Notes: pt report she is current cigarett smoker, she denies alcohol and drug issue. - POLST Patient has POLST: No POLST Status: Full Code Meds/Allgy - Home Medications Home Medications: Ambulatory Orders Medication Instructions Recorded Confirmed Alprazolam [Xanax] 1 mg PO DAILY PRN 02/16/13 07/15/18 Citalopram [CeleXA] 40 mg PO DAILY 02/16/13 07/15/18 Losartan [Cozaar] 50 mg PO DAILY 02/16/13 07/15/18 Carisoprodol [Soma] 350 mg PO TID PRN 06/30/18 07/15/18 Glimepiride 2 mg PO DAILY 06/30/18 07/16/18 Oxycodone HCl 10 mg PO .Q6-8H PRN 06/30/18 07/15/18 clonazePAM [Clonazepam] 0.5 - 1 mg PO TID PRN 06/30/18 07/15/18 Hydrocodone/Acetaminophen 1 each PO DAILY #21 tablet 07/02/18 07/15/18 [Hydrocodone-Acetamin 10-325 mg] Glimepiride [Amaryl] 1 mg PO QPM 07/16/18 07/16/18 Blood Sugar Diagnostic [Glucometer 1 each QID #190 strip 07/20/18 Strips] Blood-Glucose Meter [Glucometer] 1 each QID #1 each 07/20/18 DAPTOmycin [Daptomycin] 700 mg IV DAILY #42 vial 07/20/18 Insulin Glargine [Lantus Solostar] 18 unit SUBQ DAILY #1 pen 07/20/18 Lancing Device/Lancets [Unistik-2 1 each QID #190 kit 07/20/18 3 mm Device] Pen Needle, Diabetic [Pen [place]] 1 each QID #190 dis.needle 07/20/18 Melatonin 10 mg PO DAILY PM #30 tab.rapdis 07/21/18 Saccharomyces Boulardii [Florastor] 250 mg PO BID #60 capsule 07/21/18 oxyCODONE [Roxicodone] 10 mg PO Q4HR PRN #30 tablet 07/21/18 - Allergies Allergies/Adverse Reactions: Allergies Allergy/AdvReac Type Severity Reaction Status Date / Time lisinopril Allergy Unknown Verified 11/19/18 13:08 Review of Systems - Constitutional Constitutional: reports: Fatigue, Malaise, Poor appetite. denies: Fever, Chills - Eyes Eyes: denies: Pain, Blurred vision - Ears, Nose & Throat Ears, Nose & Throat: denies: Tinnitus, Vertigo - Cardiovascular Cariovascular: reports: Lightheadedness. denies: Irregular heart rate, Orthopnea - Respiratory Respiratory: denies: Cough, Sputum production, Wheezing - Gastrointestinal Gastrointestinal: reports: Abdominal pain, Abdominal distention, Constipation, Diarrhea, Change in bowel habits, Nausea, Reflux/heartburn, Bloating, Poor appetite - Musculoskeletal Musculoskeletal: reports: Muscle pain, Back pain, Joint pain - Integumentary Integumentary: denies: Rash - Neurological Neurological: denies: Focal weakness - Hematologic/Lymphatic Hematologic/Lymphatic: denies: Anemia, Bruising Exam - Vital Signs Reviewed Vital Signs: Yes Vital Signs: Vital Signs x48h Temp Pulse Resp BP Pulse Ox 11/19/18 17:33 85 18 159/92 H 96 11/19/18 15:54 86 16 159/89 H 96 11/19/18 13:05 35.7 C L 102 H 20 185/93 H 95 - Physical Exam General Appearance: positive: Alert, Moderate distress Eyes Bilateral: positive: Normal inspection, PERRL, EOMI ENT: positive: ENT inspection nml, Pharynx nml. negative: Oral lesions Neck: positive: Nml inspection, No JVD, Trachea midline. negative: Swelling/bruising Respiratory: positive: Chest non-tender, No respiratory distress, Breath sounds nml. negative: Wheezes, Rhonchi Cardiovascular: positive: Regular rate & rhythm, Tachycardia. negative: No murmur, Irregularly irregular Peripheral Pulses: positive: 0 Abdomen: positive: Tenderness (Most tender to palpation in the left upper quadrant.), Guarding (voluntary), Abnml bowel sounds (Hypoactive), Other (Well healed midline abdominal incision without palpable hernia or mass). negative: Rebound Back: positive: CVA tenderness (L). negative: CVA tenderness (R) Skin: positive: Color nml Extremities: positive: Other (Dressing on right forefoot and patient is unwilling for me to remove it to get a better look. Appears to be re- epitheializing on the plantar surface. No eminent tissue loss.) Neurologic/Psychiatric: positive: Oriented x3, CN's nml (2-12) Conclusion/Plan - Diagnosis Diagnosis: Small bowel obstruction in the setting of lactic acidosis and a hostile abdomen. - Plan Plan: Ever has a complex problem and has expressed a desire to be transferred to another facility. I have discussed my findings with Dr. Londono as well as the p atient's desire for transfer. She has agreed to make arrangements. - Lab Results Fish Bones: 11/19/18 14:26 11/19/18 14:26 - Diagnostic Imaging Results Diagnostic Imaging Results Comments: PT NAME: EVER WAGNER MR#: [id number] REG ER/ED AGE: 58 CI DT/TM: 11/19/1812/30/1353 PCP: Kingsley Ruth MD : 1960 ATT: SEX: F ORD: Isabellesarina maria MD EXAM: CT/ABPEW ([id number]) Reason: abd pain Procedure Date: 11/19/2018 Accession Number: [id number] / [id number] Procedure: CT - Abdomen/Pelvis W CPT Code: FULL RESULT: EXAM: CT ABDOMEN AND PELVIS EXAM DATE: 11/19/2018 03:36 PM. CLINICAL HISTORY: Abdominal pain COMPARISONS: CT of 10/29/2010. TECHNIQUE: Routine helical CT imaging was performed through the abdomen and pelvis. IV contrast: OPTI 320 100ML. Enteric contrast: No. Reconstructions: Coronal and sagittal. In accordance with CT protocol optimization, one or more of the following dose reduction techniques were utilized for this exam: automated exposure control, adjustment of mA and/or KV based on patient size, or use of iterative reconstructive technique. FINDINGS: Lung Bases: 5 mm nodule with linear morphology in the right middle lobe is unchanged. Liver: The liver is enlarged, measuring 25 cm in length. Diffusely hypoattenuating parenchyma. No mass. Gallbladder/Bile Ducts: Unremarkable. Spleen: Normal. Pancreas: Not to moderate atrophy. Adrenal Glands: Normal. 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 Tiny adjacent cortical hypodensity. No hydronephrosis. Peritoneal Cavity/Bowel: The stomach is distended. Nondilated duodenum. There are multiple mildly dilated loops of jejunum with transition point to decompressed small bowel in the central mesentery. The insertion due to adhesions given prior ventral hernia repair although the transition point is not near the mesh or ventral abdominal wall. Mild mesenteric edema adjacent to the dilated jejunal loops. The obstructed bowel demonstrates normal mucosal enhancement. No free fluid, free air or pneumatosis. Remainder of small bowel is decompressed, as is the majority of the colon. The appendix is absent. Post surgical changes in the rectosigmoid colon with patent anastomosis. Pelvic Organs: The bladder, uterus and adnexa are unremarkable. Vasculature: Moderate atherosclerosis. No aortic aneurysm. Bones: Mild degenerative changes in the spine. Other: Previous mesh ventral hernia repair. IMPRESSION: 1. Proximal small bowel obstruction with transition point in the central mesentery. Mild adjacent mesenteric edema without findings of vascular compromise. 2. Postsurgical changes in the rectosigmoid colon and of ventral hernia repair. 3. Enlarged liver with fatty infiltration. [facility] Patient Access: Reading Radiologist: Juwan Hedrick MD Releasing Radiologist: Juwan Hedrick MD Released Date Time: 11/19/18 1382 Report [id number] cc: Kingsley Ruth MD; Isabelle Londono MD
[2018-11-19] MEDS ORDERED: LORazepam 2 MG/ML VIAL IVP STA (18:03)
[2018-11-19] MEDS ORDERED: HALOPERIDOL 5 MG/ML VIAL IVP ONE (21:21)
[2018-11-20] MEDS ORDERED: ACETAMINOPHEN 1,000 MG/100 ML 100 ML IV STA (00:37)
[2018-11-20 00:42] VITALS: BP 177/96
[2018-11-20] MEDS ORDERED: METOCLOPRAMIDE 10 MG/2 ML VIAL IVP STA (01:03)
--- NOTE | 2018-11-20 01:12 | ED Physician Documentation ---
ED Addendum - Addendum Addendum: 11/20/18 01:08 Arrangements for transport of been made by [facility] for a BLS unit and cannot even take this patient with IV fluids. She is also requiring more nausea medicine. I just spoke with a new person at [facility] who is unfamiliar with the case and is asking whether or not we can arrange for transport faster than they can. This has been referred to the shipping support clerk. Care turned over to Dr Davison.
--- NOTE | 2018-12-01 12:49 | ED Physician Documentation ---
ED Addendum - Addendum Addendum: 12/01/18 12:49 Critical care time of 60 minutes.
== END 2018-11-20 01:55 | disposition short-term general hospital (02) ==
LOC: ED 12:59
DX: K56.609 Unspecified intestinal obstruction, unspecified as to partial versus complete obstruction (principal); E87.2 Acidosis; Z87.19 Personal history of other diseases of the digestive system; Z90.49 Acquired absence of other specified parts of digestive tract; K76.0 Fatty (change of) liver, not elsewhere classified; E11.9 Type 2 diabetes mellitus without complications; Z79.4 Long term (current) use of insulin; I10 Essential (primary) hypertension; F17.200 Nicotine dependence, unspecified, uncomplicated
CPT/HCPCS: 36415; 74177; 80053; 81001; 83605; 83690; 85025; 87040; 87086; 87181; 96361; 96365; 96366; 96367; 96375; 96376; 99285; 99291; J0131; J1170; J2060; J2765; Q9967; 81003

== ENCOUNTER 2018-11-20 03:40 | Outpatient (CLI) | payer OTHER, MEDICARE | END 2018-11-20 03:41 | disposition short-term general hospital (02) | LOC: EMS 03:40 | PROVIDERS: ATTEND Surgery | DX: R10.12 Left upper quadrant pain (principal) | CPT/HCPCS: A0425; A0426 ==

== ENCOUNTER 2018-12-16 14:53 | Outpatient (CLI) | payer OTHER, MEDICARE ==
[2018-12-16 15:11] LABS: BASOPHILS % (AUTO) 0.5 %; EOSINOPHILS # (AUTO) 0.1 10^3/uL (0.0-0.7); EOSINOPHILS % (AUTO) 1.5 %; HGB - HEMOGLOBIN 13.1 g/dL (12.0-16.0); MEAN CORPUSCULAR HEMOGLOBIN 28.9 pg (27.0-31.0); MEAN CORPUSCULAR HGB CONC 34.5 g/dL (32.0-36.0); MEAN CORPUSCULAR VOLUME 83.9 fL (81.0-99.0); MEAN PLATELET VOLUME 9.1 fL (7.9-10.8); MONOCYTES # (AUTO) 0.5 10^3/uL (0.0-1.0); MONOCYTES % (AUTO) 5.5 %; NEUTROPHILS # (AUTO) 5.2 10^3/uL (1.5-6.6); PLT - PLATELET COUNT 438 10^3/uL (130-450); RED BLOOD COUNT 4.53 10^6/uL (4.20-5.40); RED CELL DISTRIBUTION WIDTH 13.7 % (12.0-15.0); WHITE BLOOD COUNT 8.9 x10^3/uL (4.8-10.8)
[2018-12-16 15:38] LABS: HB2 TOTAL 12.9 g/dL; HEMOGLOBIN A1C 1.06 g/dL; HEMOGLOBIN A1C % 9.7 % (4.6-6.2)
[2018-12-16 20:01] LABS: CALCIUM 9.3 mg/dL (8.5-10.3); CREATININE 0.6 mg/dL (0.4-1.0)
== END 2018-12-16 14:54 | disposition home or self-care (01) ==
LOC: LAB 14:53
PROVIDERS: ATTEND Family Medicine
DX: E11.621 Type 2 diabetes mellitus with foot ulcer (principal); K56.609 Unspecified intestinal obstruction, unspecified as to partial versus complete obstruction; R19.7 Diarrhea, unspecified; G89.4 Chronic pain syndrome; F31.30 Bipolar disorder, current episode depressed, mild or moderate severity, unspecified
CPT/HCPCS: 36415; 80048; 81599; 83036; 85025

== ENCOUNTER 2019-05-09 08:00 | Outpatient (CLI) | payer MEDICARE, OTHER ==
[2019-05-09 18:55] LABS: CALCIUM 9.5 mg/dL (8.5-10.3); CREATININE 0.7 mg/dL (0.4-1.0)
== END 2019-05-09 23:59 | disposition home or self-care (01) ==
LOC: LAB.N 08:00
PROVIDERS: ATTEND Family Medicine
DX: E11.9 Type 2 diabetes mellitus without complications (principal); Z89.421 Acquired absence of other right toe(s)
CPT/HCPCS: 36415; 80048

== ENCOUNTER 2019-06-05 09:19 | Emergency (ER) | payer MEDICARE ==
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
[2019-06-05 11:06] LABS: BASOPHILS % (AUTO) 0.5 %; EOSINOPHILS # (AUTO) 0.1 10^3/uL (0.0-0.7); EOSINOPHILS % (AUTO) 1.1 %; HGB - HEMOGLOBIN 13.3 g/dL (12.0-16.0); LYMPHOCYTES # (AUTO) 2.8 10^3/uL (1.5-3.5); LYMPHOCYTES % (AUTO) 31.4 %; MEAN CORPUSCULAR HEMOGLOBIN 27.5 pg (27.0-31.0); MEAN CORPUSCULAR HGB CONC 32.8 g/dL (32.0-36.0); MEAN CORPUSCULAR VOLUME 83.9 fL (81.0-99.0); MEAN PLATELET VOLUME 9.2 fL (7.9-10.8); MONOCYTES # (AUTO) 0.5 10^3/uL (0.0-1.0); MONOCYTES % (AUTO) 5.7 %; NEUTROPHILS # (AUTO) 5.4 10^3/uL (1.5-6.6); NEUTROPHILS % (AUTO) 60.8 %; PLT - PLATELET COUNT 342 10^3/uL (130-450); RED BLOOD COUNT 4.83 10^6/uL (4.20-5.40); WHITE BLOOD COUNT 8.8 x10^3/uL (4.8-10.8)
[2019-06-05 11:32] LABS: ALBUMIN 4.3 g/dL (3.2-5.5); ALBUMIN/GLOBULIN RATIO 1.4 (1.0-2.2); ALKALINE PHOSPHATASE 64 IU/L (42-121); ALT ALANINE AMINOTRANSFERASE 17 IU/L (10-60); AST ASPARTATE AMINOTRANSFERASE 20 IU/L (10-42); BILIRUBIN,TOTAL 0.7 mg/dL (0.2-1.0); BUN - BLOOD UREA NITROGEN 20 mg/dL (6-20); CALCIUM 9.5 mg/dL (8.5-10.3); CARBON DIOXIDE - CO2 23 mmol/L (21-32); CHLORIDE 98 mmol/L (101-111); CREATININE 0.7 mg/dL (0.4-1.0); GFR - MDRD 86 (>89); GLUCOSE 130 mg/dL (70-100); LIPASE 23 U/L (22-51); SODIUM 137 mmol/L (135-145); TOTAL PROTEIN 7.4 g/dL (6.7-8.2)
[2019-06-05 11:36] LABS: CRP - C-REACTIVE PROTEIN < 1.0 mg/dL (0-1.0)
--- NOTE | 2019-06-05 11:37 | XRAY Report ---
Reason: increased swelling to 5th s/p amputation Procedure Date: 06/05/2019 Accession Number: [id number] / [id number] Procedure: XR - Foot 3 View RT CPT Code: Final Report FULL RESULT: EXAM: RIGHT FOOT RADIOGRAPHY EXAM DATE: 06/05/2019 10:51 AM. CLINICAL HISTORY: Increased swelling to 5th s/p amputation. COMPARISON: FOOT 3 VIEW RT 07/15/2018 4:06 PM. TECHNIQUE: 3 views. FINDINGS: Bones: No evidence of acute fracture. No suspicious bony lesions are seen. Joints: Patient has undergone amputation through the fifth metatarsophalangeal joint. Soft Tissues: There is lateral forefoot soft tissue swelling. IMPRESSION: Status post amputation through the fifth metatarsophalangeal joint. There is soft tissue swelling adjacent to the fifth metatarsal head without evidence of acute fracture or focal bony lesion. [facility]
[2019-06-05 12:17] VITALS: BP 120/80
== END 2019-06-05 12:15 | disposition home or self-care (01) ==
LOC: ED 09:19
DX: E11.621 Type 2 diabetes mellitus with foot ulcer (principal); L97.511 Non-pressure chronic ulcer of other part of right foot limited to breakdown of skin; I10 Essential (primary) hypertension; F17.200 Nicotine dependence, unspecified, uncomplicated; Z79.4 Long term (current) use of insulin; Z89.421 Acquired absence of other right toe(s)
CPT/HCPCS: 36415; 80053; 83605; 83690; 85025; 85651; 86140; 87040; 99284

== ENCOUNTER 2019-08-05 14:00 | Outpatient (CLI) | payer MEDICARE | END 2019-08-05 23:59 | disposition home or self-care (01) | LOC: LAB.R 14:00 | PROVIDERS: ATTEND Family Medicine | DX: S91.311D Laceration without foreign body, right foot, subsequent encounter (principal) | CPT/HCPCS: 87070; 87181; 87205 ==

== ENCOUNTER 2019-09-16 08:00 | Outpatient (CLI) | payer MEDICARE ==
[2019-09-16 18:44] LABS: BASOPHILS % (AUTO) 0.5 %; EOSINOPHILS # (AUTO) 0.1 10^3/uL (0.0-0.7); EOSINOPHILS % (AUTO) 1.2 %; HGB - HEMOGLOBIN 12.8 g/dL (12.0-16.0); LYMPHOCYTES # (AUTO) 2.7 10^3/uL (1.5-3.5); LYMPHOCYTES % (AUTO) 30.8 %; MEAN CORPUSCULAR HEMOGLOBIN 26.6 pg (27.0-31.0); MEAN CORPUSCULAR HGB CONC 31.8 g/dL (32.0-36.0); MEAN CORPUSCULAR VOLUME 83.4 fL (81.0-99.0); MEAN PLATELET VOLUME 9.3 fL (7.9-10.8); MONOCYTES # (AUTO) 0.4 10^3/uL (0.0-1.0); MONOCYTES % (AUTO) 4.8 %; NEUTROPHILS # (AUTO) 5.4 10^3/uL (1.5-6.6); NEUTROPHILS % (AUTO) 62.4 %; PLT - PLATELET COUNT 367 10^3/uL (130-450); RED BLOOD COUNT 4.82 10^6/uL (4.20-5.40); RED CELL DISTRIBUTION WIDTH 13.1 % (12.0-15.0); WHITE BLOOD COUNT 8.7 x10^3/uL (4.8-10.8)
[2019-09-16 18:47] LABS: CALCIUM 9.5 mg/dL (8.5-10.3); CREATININE 0.7 mg/dL (0.4-1.0)
[2019-09-16 20:16] LABS: HB2 TOTAL 13.7 g/dL; HEMOGLOBIN A1C 0.8 g/dL; HEMOGLOBIN A1C % 7.5 % (4.6-6.2)
== END 2019-09-16 08:01 | disposition home or self-care (01) ==
LOC: LAB.WCP 08:00
PROVIDERS: ATTEND Family Medicine
DX: M86.471 Chronic osteomyelitis with draining sinus, right ankle and foot (principal); E11.621 Type 2 diabetes mellitus with foot ulcer; F11.20 Opioid dependence, uncomplicated
CPT/HCPCS: 36415; 80048; 83036; 85025